=== PATIENT | female | born 1980 | race Caucasian/White ===

== ENCOUNTER → 2019-06-22 | Outpatient (REF) | payer OTHER ==
[~2019-06-22] MED LIST: AMIT50TA PO; BACT800T5 PO; CELE20TA PO; DULE200A IN; IBUP400T OR; MORP30TA2 PO; MORP30TASA PO; PERC7.5T11 PO; PERCOCET PO; TRAZ50TA2 PO; VENTAER IN; [UNRECOGNIZED DRUG - OTHER]; flexeril PO
== END ==
LOC: M SFHCLERA 11:16
PROVIDERS: ATTEND Physician Assistant
DX: R11.0 Nausea (principal)

== ENCOUNTER → 2019-08-18 | Outpatient (CLI) | payer OTHER ==
[~2019-08-18] MED LIST changes: +AJOV225I; +FOLI1TAB11 PO; +GABA800T4; +METO1TAB7; +OMEP-218; +OXYC10TA3; +PRED20TA PO; +RANI150T14; +SUMA50TA2
--- NOTE | 2019-08-18 19:13 | REP ---
Right elbow four views: There is no fracture or dislocation. Mineralization and joint spaces are normal. There are no calcifications or foreign bodies. Impression: Negative right elbow . Electronically Signed by Yonatan Mobley MD 08/18/2019 07:04 P
== END ==
LOC: M LRY 18:12
PROVIDERS: ATTEND Physician Assistant
DX: M25.521 Pain in right elbow (principal)

== ENCOUNTER 2019-08-22 14:13 | Emergency (ER) | payer OTHER ==
[~2019-08-22] VITALS: Ht 162.6 cm; Wt 44.1 kg
[2019-08-22 14:13] VITALS: BP 113/56
[~2019-08-22 14:13] MED LIST changes: -AJOV225I; -FOLI1TAB11 PO; -GABA800T4; -METO1TAB7; -OMEP-218; -OXYC10TA3; -PRED20TA PO; -RANI150T14; -SUMA50TA2
[2019-08-22] MEDS ORDERED: FOLI1TAB11 PO (14:27)
[2019-08-22] MEDS ORDERED: RANI150T14 (14:27)
[2019-08-22] MEDS ORDERED: GABA800T4 (14:27)
[2019-08-22] MEDS ORDERED: OMEP-218 (14:27)
[2019-08-22] MEDS ORDERED: OXYC10TA3 (14:27)
[2019-08-22] MEDS ORDERED: METO1TAB7 (14:27)
[2019-08-22] MEDS ORDERED: AJOV225I (14:27)
[2019-08-22] MEDS ORDERED: SUMA50TA2 (14:27)
[2019-08-22] MEDS ORDERED: PRED20TA PO (14:39)
== END 2019-08-22 14:57 | disposition home or self-care (01) ==
LOC: M ED 14:13
DX: G56.21 Lesion of ulnar nerve, right upper limb (principal); M77.01 Medial epicondylitis, right elbow; Z88.1 Allergy status to other antibiotic agents; Z88.8 Allergy status to other drugs, medicaments and biological substances; Z79.899 Other long term (current) drug therapy; K21.9 Gastro-esophageal reflux disease without esophagitis

== ENCOUNTER 2019-08-31 12:43 | Emergency (ER) | payer OTHER ==
[~2019-08-31] VITALS: Ht 165.1 cm; Wt 45.9 kg
[2019-08-31 12:43] VITALS: BP 114/63
[~2019-08-31 12:43] MED LIST changes: +AJOV225I; +FOLI1TAB11 PO; +GABA800T4; +METO1TAB7; +OMEP-218; +OXYC10TA3; +PRED20TA PO; +RANI150T14; +SUMA50TA2
== END 2019-08-31 17:04 | disposition home or self-care (01) ==
LOC: M ED 12:43
DX: T19.2XXA Foreign body in vulva and vagina, initial encounter (principal); J45.909 Unspecified asthma, uncomplicated; F17.210 Nicotine dependence, cigarettes, uncomplicated; Z88.1 Allergy status to other antibiotic agents; Z88.8 Allergy status to other drugs, medicaments and biological substances; Z79.51 Long term (current) use of inhaled steroids; Z79.899 Other long term (current) drug therapy

== ENCOUNTER 2019-09-29 10:41 | Day surgery (SDC) | payer OTHER ==
[~2019-09-29] VITALS: Ht 165.1 cm; Wt 44.9 kg
[~2019-09-29 10:41] MED LIST changes: -GABA800T4; +GABA800T4 PO; -OMEP-218; +OMEP-218 PO; -OXYC10TA3; +OXYC10TA3 PO; +PRIL20TA2 PO
[2019-09-29] MEDS ORDERED: NS 1,000 ML IV ONE (11:00)
[2019-09-29] MEDS ORDERED: PROPOFOL 200 MG/20 ML VIAL As Ordered ONE ×2 (12:39→13:05)
[2019-09-29] MEDS ORDERED: LIDOCAINE 2% INJ 100 MG/5 ML SDV (FOR ANES.) As Ordered ONE (12:39)
[2019-09-29 13:45] VITALS: BP 99/58
--- NOTE | 2019-09-29 13:56 | ROOR ---
Patient Name: Nai Hopson Procedure Date: 09/29/2019 1:02 PM Date of : 1980 Age: 39 Room: [facility] Gender: Female Note Status: Finalized Procedure: Upper GI endoscopy Indications: Dyspepsia, Abnormal UGI series Providers: Pollo Serna MD Referring MD: MONICA WEST MD Requesting Provider: Medicines: Monitored Anesthesia Care Complications: No immediate complications. Procedure: Pre-Anesthesia Assessment: - Prior to the procedure, a History and Physical was performed, and patient medications and allergies were reviewed. The patient is competent. The risks and benefits of the procedure and the sedation options and risks were discussed with the patient. All questions were answered and informed consent was obtained. Patient identification and proposed procedure were verified by the physician, the nurse and the anesthesiologist in the procedure room. Mental Status Examination: alert and oriented. Airway Examination: normal oropharyngeal airway and neck mobility. Respiratory Examination: clear to auscultation. CV Examination: normal. Prophylactic Antibiotics: The patient does not require prophylactic antibiotics. Prior Anticoagulants: The patient has taken no previous anticoagulant or antiplatelet agents. ASA Grade Assessment: II - A patient with mild systemic disease. After reviewing the risks and benefits, the patient was deemed in satisfactory condition to undergo the procedure. The anesthesia plan was to use monitored anesthesia care (MAC). Immediately prior to administration of medications, the patient was re-assessed for adequacy to receive sedatives. The heart rate, respiratory rate, oxygen saturations, blood pressure, adequacy of pulmonary ventilation, and response to care were monitored throughout the procedure. The physical status of the patient was re-assessed after the procedure. The Endoscope was introduced through the mouth, and advanced to the second part of duodenum. The upper GI endoscopy was accomplished without difficulty. The patient tolerated the procedure well. Findings: The examined esophagus was normal. Scattered mild inflammation characterized by erythema, friability and granularity was found in the gastric antrum. Biopsies were taken with a cold forceps for Helicobacter pylori testing. Verification of patient identification for the specimen was done by the physician and nurse using the patient's name, date and medical record number. Estimated blood loss was minimal. The duodenal bulb and second portion of the duodenum were normal. Biopsies for histology were taken with a cold forceps for evaluation of celiac disease. Impression: - Normal esophagus. - Gastritis. Biopsied. - Normal duodenal bulb and second portion of the duodenum. Biopsied. Recommendation: - Patient has a contact number available for emergencies. The signs and symptoms of potential delayed complications were discussed with the patient. Return to normal activities tomorrow. Written discharge instructions were provided to the patient. - Resume previous diet. - Continue present medications. - Await pathology results. - Await pathology results. - Use Prilosec (omeprazole) 40 mg PO daily for 6 weeks. - Telephone GI clinic for pathology results in 2 weeks. - Return to primary care physician. Pollo Serna MD Pollo Serna MD 09/29/2019 1:55:38 PM Electronically signed by Pollo Serna MD Number of Addenda: 0 Note Initiated On: 09/29/2019 1:02 PM Estimated Blood Loss: Estimated blood loss was minimal.
== END 2019-09-29 14:01 | disposition home or self-care (01) ==
LOC: M OPP 10:41
PROVIDERS: ATTEND Internal Medicine Gastroenterology
DX: K29.70 Gastritis, unspecified, without bleeding (principal); R93.3 Abnormal findings on diagnostic imaging of other parts of digestive tract; I10 Essential (primary) hypertension; F17.210 Nicotine dependence, cigarettes, uncomplicated; Z79.899 Other long term (current) drug therapy; Z88.8 Allergy status to other drugs, medicaments and biological substances

== ENCOUNTER → 2020-09-17 | Outpatient (CLI) | payer OTHER ==
[~2020-09-17] MED LIST changes: +GABA-1171 PO; -SUMA50TA2; +SUMA50TA2 PO
== END ==
LOC: M LABSMTC 09:00
PROVIDERS: ATTEND Anesthesiology
DX: Z01.818 Encounter for other preprocedural examination (principal); Z20.828 Contact with and (suspected) exposure to other viral communicable diseases
CPT/HCPCS: C9803; U0003

== ENCOUNTER → 2020-09-22 | Day surgery (SDC) | payer OTHER ==
[~2020-09-22] VITALS: Ht 165.1 cm; Wt 44.2 kg
[~2020-09-22] MED LIST changes: +LIDOCAINE 2% 100MG/5ML SDV (FOR ANES.) As Ordered ONE; +NS 1,000 ML IV ONE; +propofoL 200 MG/20 ML VIAL As Ordered ONE
--- NOTE | 2020-09-22 11:17 | ROOR ---
Patient Name: Nai Hopson Procedure Date: 09/22/2020 10:44 AM Date of : 1980 Age: 40 Room: [facility] Gender: Female Note Status: Finalized Procedure: Colonoscopy Indications: Hematochezia, Constipation Providers: Pollo Serna MD Referring MD: MONICA WEST MD Requesting Provider: Medicines: Monitored Anesthesia Care Complications: No immediate complications. Procedure: Pre-Anesthesia Assessment: - Prior to the procedure, a History and Physical was performed, and patient medications and allergies were reviewed. The patient is competent. The risks and benefits of the procedure and the sedation options and risks were discussed with the patient. All questions were answered and informed consent was obtained. Patient identification and proposed procedure were verified by the physician, the nurse and the anesthesiologist in the procedure room. Mental Status Examination: alert and oriented. Airway Examination: normal oropharyngeal airway and neck mobility. Respiratory Examination: clear to auscultation. CV Examination: normal. Prophylactic Antibiotics: The patient does not require prophylactic antibiotics. Prior Anticoagulants: The patient has taken no previous anticoagulant or antiplatelet agents. ASA Grade Assessment: II - A patient with mild systemic disease. After reviewing the risks and benefits, the patient was deemed in satisfactory condition to undergo the procedure. The anesthesia plan was to use monitored anesthesia care (MAC). Immediately prior to administration of medications, the patient was re-assessed for adequacy to receive sedatives. The heart rate, respiratory rate, oxygen saturations, blood pressure, adequacy of pulmonary ventilation, and response to care were monitored throughout the procedure. The physical status of the patient was re-assessed after the procedure. The Colonoscope was introduced through the anus and advanced to the terminal ileum, with identification of the appendiceal orifice and IC valve. The colonoscopy was performed without difficulty. The patient tolerated the procedure well. The quality of the bowel preparation was good. The terminal ileum, ileocecal valve, appendiceal orifice, and rectum were photographed. Scope insertion time was 3 minutes. Scope withdrawal time was 9 minutes. The total duration of the procedure was 14 minutes. Findings: The perianal and digital rectal examinations were normal. Pertinent negatives include normal sphincter tone. The terminal ileum appeared normal. Normal mucosa was found in the entire colon. Non-bleeding external and internal hemorrhoids were found during retroflexion. The hemorrhoids were medium-sized. Impression: - The examined portion of the ileum was normal. - Normal mucosa in the entire examined colon. - Non-bleeding external and internal hemorrhoids. - No specimens collected. Recommendation: - Patient has a contact number available for emergencies. The signs and symptoms of potential delayed complications were discussed with the patient. Return to normal activities tomorrow. Written discharge instructions were provided to the patient. - High fiber diet. - Continue present medications. - Use fiber, for example Citrucel, Fibercon, Konsyl or Metamucil. - Repeat colonoscopy in 10 years for screening purposes. - Return to GI clinic if persistent symptoms or new symptoms. - Return to primary care physician. Pollo Serna MD Pollo Serna MD 09/22/2020 11:17:05 AM Electronically signed by Pollo Serna MD Number of Addenda: 0 Note Initiated On: 09/22/2020 10:44 AM Estimated Blood Loss: Estimated blood loss was minimal.
[2020-09-22 11:45] VITALS: BP 98/61
== END | disposition home or self-care (01) ==
LOC: M OPP 09:49
PROVIDERS: ATTEND Internal Medicine Gastroenterology
DX: K64.8 Other hemorrhoids (principal); K92.1 Melena; K59.00 Constipation, unspecified; K21.9 Gastro-esophageal reflux disease without esophagitis; J44.9 Chronic obstructive pulmonary disease, unspecified; Z79.891 Long term (current) use of opiate analgesic; Z79.899 Other long term (current) drug therapy; Z88.5 Allergy status to narcotic agent; Z88.8 Allergy status to other drugs, medicaments and biological substances

== ENCOUNTER 2020-09-25 23:06 | Emergency (ER) | payer OTHER ==
[~2020-09-25] VITALS: Ht 165.1 cm; Wt 44.1 kg
[~2020-09-25 23:06] MED LIST changes: -LIDOCAINE 2% 100MG/5ML SDV (FOR ANES.) As Ordered ONE; -NS 1,000 ML IV ONE; -propofoL 200 MG/20 ML VIAL As Ordered ONE
[2020-09-26 00:06] LABS: BASO # 0.1 10^3/uL (0.0-0.2); BASO % 0.9 % (0.0-1.0); EOS # 0.1 10^3/uL (0.0-0.5); EOS % 1.5 % (0.0-3.0); HEMATOCRIT 35.9 % (36.0-47.0); HEMOGLOBIN 11.7 g/dl (12.0-15.5); LYMPH # 2.4 10^3/uL (1.5-5.0); MEAN CORPUSCULAR HEMOGLOBIN 30.1 pg (27.0-33.0); MEAN CORPUSCULAR HGB CONC 32.6 g/dl (32.0-36.5); MEAN CORPUSCULAR VOLUME 92.3 fl (80.0-96.0); MONO # 0.4 10^3/uL (0.0-0.8); MONO % 6.5 % (0.0-5.0); NEUTROPHILS # 2.5 10^3/uL (1.5-8.5); NEUTROPHILS % 45.5 % (36.0-66.0); PLATELET COUNT, AUTOMATED 232 10^3/uL (150-450); RED BLOOD COUNT 3.89 10^6/uL (4.00-5.40); WHITE BLOOD COUNT 5.4 10^3/uL (4.0-10.0)
[2020-09-26 00:19] LABS: BLOOD UREA NITROGEN 18 MG/DL (7-18); CALCIUM LEVEL 9.4 MG/DL (8.5-10.1); CARBON DIOXIDE LEVEL 28 MEQ/L (21-32); CHLORIDE LEVEL 106 MEQ/L (98-107); CK-MB VALUE MASS < 1.0 NG/ML (<3.6); CPK CREATINE PHOSPHOKINASE 67 U/L (26-192); CREATININE FOR GFR 0.67 MG/DL (0.55-1.30); GLOMERULAR FILTRATION RATE > 60.0 (>58); GLUCOSE, FASTING 79 MG/DL (70-100); MB/CK RELATIVE INDEX 1.49 (< OR =4); POTASSIUM SERUM 3.7 MEQ/L (3.5-5.1); SODIUM LEVEL 140 MEQ/L (136-145); THYROID STIMULATING HORMONE 0.894 uIU/ML (0.358-3.740); TROPONIN I < 0.02 NG/ML (< 0.10)
--- NOTE | 2020-09-26 00:27 | REPVR ---
PROCEDURE INFORMATION: Exam: XR Chest, 1 View Exam date and time: 09/25/2020 11:43 PM Age: 40 years old Clinical indication: Chest pain; Type not specified TECHNIQUE: Imaging protocol: XR of the chest Views: 1 view. COMPARISON: CR Chest, 2 view PA, Lat 12/06/2014 3:02 PM FINDINGS: Tubes, catheters and devices: Spinal stimulator over the midthoracic spine. Lungs: Calcified granuloma in the right upper lobe. No acute infiltrate. Pleural space: Unremarkable. No pleural effusion. No pneumothorax. Heart/Mediastinum: Unremarkable. No cardiomegaly. Bones/joints: Unremarkable. IMPRESSION: No acute infiltrate. Electronically signed by: Zeyad Nam On 09/26/2020 00:26:47 AM
[2020-09-26 00:45] VITALS: BP 104/68
--- NOTE | 2020-09-26 09:53 | ECGEPIP ---
[facility] - ED Test Date: 2020-09-25 Pat Name: DAOLFO SEALS Department: Room: - Gender: Female [employer]: sorin : 1980 Requested By: CARRI Christianson Order Number: [id number] Reading MD: Waqar Pineda Measurements Intervals [place] Rate: 71 P: 55 CT: 189 QRS: 72 QRSD: 82 T: 59 QT: 374 QTc: 409 Interpretive Statements SINUS RHYTHM Electronically Signed on 09-26-2020 9:53:23 EST by Waqar Pineda
== END 2020-09-26 00:47 | disposition home or self-care (01) ==
LOC: M ED 23:06
DX: R07.9 Chest pain, unspecified (principal); D64.9 Anemia, unspecified; F17.200 Nicotine dependence, unspecified, uncomplicated; Z79.891 Long term (current) use of opiate analgesic; Z79.899 Other long term (current) drug therapy; Z88.6 Allergy status to analgesic agent; Z88.8 Allergy status to other drugs, medicaments and biological substances; Z96.82 Presence of neurostimulator

== ENCOUNTER 2021-02-18 15:28 | Emergency (ER) | payer OTHER ==
[~2021-02-18] VITALS: Ht 165.1 cm; Wt 45.5 kg
[~2021-02-18 15:28] MED LIST changes: +GABA-845 PO
[2021-02-18] MEDS ORDERED: METO1TAB33 (15:35)
[2021-02-18] MEDS ORDERED: ONDA4TAB6 (15:35)
[2021-02-18] MEDS ORDERED: SUMA100T2 (15:35)
[2021-02-18] MEDS ORDERED: ONDANSETRON 4MG/2ML VIAL IV ONE (15:50)
[2021-02-18] MEDS ORDERED: NS 1,000 ML IV ONE (15:50)
[2021-02-18 16:04] LABS: BASO % 0.5 % (0.0-1.0); EOS # 0.1 10^3/uL (0.0-0.5); EOS % 1.9 % (0.0-3.0); HEMATOCRIT 36.9 % (36.0-47.0); HEMOGLOBIN 11.6 g/dl (12.0-15.5); LYMPH # 1.5 10^3/uL (1.5-5.0); LYMPH % 41.6 % (24.0-44.0); MEAN CORPUSCULAR HEMOGLOBIN 28.8 pg (27.0-33.0); MEAN CORPUSCULAR HGB CONC 31.4 g/dl (32.0-36.5); MEAN CORPUSCULAR VOLUME 91.6 fl (80.0-96.0); MONO # 0.2 10^3/uL (0.0-0.8); MONO % 6.3 % (2.0-8.0); NEUTROPHILS # 1.8 10^3/uL (1.5-8.5); NEUTROPHILS % 49.7 % (36.0-66.0); PLATELET COUNT, AUTOMATED 177 10^3/uL (150-450); RED BLOOD COUNT 4.03 10^6/uL (4.00-5.40); WHITE BLOOD COUNT 3.7 10^3/uL (4.0-10.0)
--- NOTE | 2021-02-18 16:26 | REP ---
INDICATION: vomtiing. COMPARISON: None. TECHNIQUE: Multiple sonographic images of the abdominal right upper quadrant. FINDINGS: There is no cholelithiasis, gallbladder wall thickening or pericholecystic fluid. There is no intrahepatic or extrahepatic biliary duct dilatation. The common biliary duct measures 4.5 mm in diameter. The hepatic parenchyma is homogeneous. A small 1.6 cm hepatic cyst is incidentally noted. The visualized areas of the pancreas are unremarkable. The right kidney is normal size measuring 10 x 1 x 4.5 x 3.0 cm. There is no right renal hydronephrosis, calculus, solid mass or cystic mass. There is no right upper quadrant abdominal free fluid. IMPRESSION: Small hepatic cyst. Otherwise, negative abdominal right upper quadrant ultrasound. <Electronically signed by Yonatan Mobley > 02/18/21 [id number]
[2021-02-18 16:36] LABS: ALBUMIN 4.5 GM/DL (3.2-5.2); ALT/SGPT 17 U/L (12-78); BILIRUBIN,DIRECT 0.1 MG/DL (0.0-0.2); BILIRUBIN,TOTAL 0.4 MG/DL (0.2-1.0); BLOOD UREA NITROGEN 17 MG/DL (7-18); CALCIUM LEVEL 9.2 MG/DL (8.5-10.1); CARBON DIOXIDE LEVEL 31 MEQ/L (21-32); CHLORIDE LEVEL 106 MEQ/L (98-107); CREATININE FOR GFR 0.71 MG/DL (0.55-1.30); GLOMERULAR FILTRATION RATE > 60.0 (>58); GLUCOSE, FASTING 85 MG/DL (70-100); HCG, SERUM QUALITATIVE NEGATIVE (NEGATIVE); LIPASE 74 U/L (73-393); POTASSIUM SERUM 4.1 MEQ/L (3.5-5.1); SODIUM LEVEL 140 MEQ/L (136-145); TOTAL PROTEIN 7.4 GM/DL (6.4-8.2)
[2021-02-18 17:36] VITALS: BP 105/68
== END 2021-02-18 17:56 | disposition home or self-care (01) ==
LOC: M ED 15:28
DX: R11.10 Vomiting, unspecified (principal); K76.89 Other specified diseases of liver; I10 Essential (primary) hypertension; J44.9 Chronic obstructive pulmonary disease, unspecified; M54.5 Low back pain; F17.200 Nicotine dependence, unspecified, uncomplicated; Z88.8 Allergy status to other drugs, medicaments and biological substances; Z79.899 Other long term (current) drug therapy
CPT/HCPCS: 76705; 80048; 80076; 83690; 84703; 85025; 96361; 96374; 99284; J2405

== ENCOUNTER 2021-05-27 10:50 | Emergency (ER) | payer OTHER ==
[~2021-05-27] VITALS: Ht 165.1 cm; Wt 47.3 kg
[~2021-05-27 10:50] MED LIST changes: +GABA-283 PO; -GABA-845 PO; +METO1TAB33; +OMEP-173 PO; -OMEP-218 PO; +ONDA4TAB6; +SUMA100T2
[2021-05-27] MEDS ORDERED: BENZOCAINE 20% GEL 9GM TUBE (ANBESOL MAX STRENGTH) TOP ONE (11:45)
[2021-05-27] MEDS ORDERED: KETOROLAC 30 MG/ML 1ML VIAL IM ONE (11:45)
[2021-05-27] MEDS ORDERED: CLIN150C17 PO (11:47)
[2021-05-27] MEDS ORDERED: IBUP80TA PO (11:47)
[2021-05-27 12:22] VITALS: BP 119/60
== END 2021-05-27 12:27 | disposition home or self-care (01) ==
LOC: M ED 10:50
DX: K02.9 Dental caries, unspecified (principal); K08.89 Other specified disorders of teeth and supporting structures; F17.200 Nicotine dependence, unspecified, uncomplicated; J02.9 Acute pharyngitis, unspecified; J44.9 Chronic obstructive pulmonary disease, unspecified; Z88.1 Allergy status to other antibiotic agents; Z88.6 Allergy status to analgesic agent; Z88.8 Allergy status to other drugs, medicaments and biological substances; Z96.82 Presence of neurostimulator
CPT/HCPCS: 87880; 96372; 99283; J1885

== ENCOUNTER 2021-09-03 14:43 | Emergency (ER) | payer OTHER ==
[~2021-09-03] VITALS: Ht 165.1 cm; Wt 46.8 kg
[~2021-09-03 14:43] MED LIST changes: +CLIN150C17 PO; +IBUP80TA PO; -OMEP-173 PO; +OMEP-218 PO
--- OUTSIDE RECORDS SUMMARY | 2021-09-03 14:52 | CCD ---
Author Author [facility] Organization [facility] Address [address] [place] [address] Phone Care Team Providers Care Forensic Pathologist Name Role Phone Rachid WILLS, Monica Vieira Unavailable [phone] Joe WARNER, Donna Lindquist Unavailable [phone] Reason for Referral No Reason for Referral Recorded Problems Includes: Active, inactive, and resolved Problems All Visits Onset Date - Time Resolved Date - Time Provider Co ndition Status Psychogenic Formication 11/28/2020 - 12:00AM Donna Diaz NP Active Note: Unchanged Atypical Chest Pain 10/11/2020 - 12:00AM Donna Del Cid NP Active Note: Unchanged Acquired Deformity - Foot Drop 04/03/2017 - 12:00AM Flor Rashid MD Active Note: Unchanged Chronic Pain Syndrome 04/03/2017 - 12:00AM Monica cline MD Active Note: Unchanged Classic Migraine (With Aura) Without Intractable Migraine - 12:00AM Monica Rashid MD Active Note: Unchanged Chronic Obstructive Pulmonary Disease 04/03/2017 - 12:00AM Monica Rashid MD Active Note: Unchanged Lower Back Pain 04/03/2017 - 12:00AM Monica Kelsey Active Note: Unchanged Numbness of the Limbs 04/03/2017 - 12:00AM Monica cline MD Active Note: Unchanged - L FOOT TO ANKLE W/O FEELING SINCE L FIBULA SURGERYFEELING OF BUG CRAWLING RADIATING TO WHOLE BODYLEG PAIN 3/10 W/ MEDS, 10/10 W/O MEDS Tingling of the Left Leg 04/03/2017 - 12:00AM Monica Rashid MD Active Note: Unchanged - AND GOES T O SHOULDER Plan of Treatment Pending Tests Order Diagnosis Results Due Ordering Provi danita *Labs (Manual) CBC Other abnormality of red blood cells Monica Rashid MD *Labs (Manual) *RANDOM Other abnormality of red blood cells Monica Rashid MD Ultrasound Pelvic Ultrasound w/out Endovaginal Prob e Other specified abnormal uterine and vaginal bleeding 05/06/17 Monica Rashid MD Ultrasound Pelvic Ultrasound w/Endovaginal Probe Ot her specified abnormal uterine and vaginal bleeding 05/06/17 Monica Rashid MD *Labs (Manual) FERRITIN Other fatigue 05/06/17 Monica turner MD *Labs (Manual) FE Other fatigue 05/06/17 Monica turner MD *Labs (Manual) RETIC Other fatigue 05/06/17 Monica turner MD *Labs (Manual) STOOL OCCULT X3 Other fatigue 05/06/17 Monica Rashid MD *Labs (Manual) TIBC Other fatigue 05/06/17 Monica turner MD *Labs (Manual) VIT B12 Other fatigue 05/06/17 Monica turner MD *Labs (Manual) FOLATE Other fatigue 05/06/17 Monica turner MD *Labs (Manual) UA W/MICRO Gestational diabetes mellitus in , diet controlled 05/06/17 Monica Rashid MD X-RAY Barium Swallow w/ UGI X-Ray Nausea 05/21/17 Monica Rashid MD *Labs (Manual) H PYLORI TITER Nausea 05/21/[address] Scan Abdomen CT Scan With Contrast Unspecified abdominal pa in 10/10/17 Kellie A Danita [facility] CT Scan Abdomen CT Without Contrast Unspecified abdominal pain 10/10/17 Kellie A Danita [facility] CT Scan Pelvis CT Scan With Contrast Unspecified abdominal agus n 10/10/17 Kellie A Danita [facility] CT Scan Pelvis CT Scan Without Contrast Unspecified abdominal pain 10/10/17 Kellie A Danita G[employer]LEY [employer]Y *Labs (Manual) UA/UCS Unspecified abdominal pain 10/10/17 Kellie A Danita G[employer]LEY BOY *Labs (Manual) *STAT Unspecified abdominal pain 10/10/17 Kellie A Danita G[employer]LEY [employer]Y *Labs (Manual) CBC Unspecified abdominal pain 10/10/17 Kellie A Danita G[employer]LEY [employer]Y *Labs (Manual) CMP Unspecified abdominal pain 10/10/17 Kellie A Danita G[employer]LEY [employer]Y *Labs (Manual) CBC Other fatigue 01/16/18 Monica turner MD *Labs (Manual) CMP Other fatigue 01/16/18 Monica turner MD *Labs (Manual) TSH Other fatigue 01/16/18 Monica turner MD *Labs (Manual) LIPID Other fatigue 01/16/18 Monica turner MD X-RAY - MAMMOGRAPHY Mammography (bilateral) ultrasound if in dicated Diffuse cystic mastopathy of left breast 03/17/18 Monica Rashid MD *Labs (Manual) CBC Underweight 05/14/18 Monica orr MD *Labs (Manual) CMP Underweight 05/14/18 Monica orr MD *Labs (Manual) TSH Underweight 05/14/18 Monica orr MD *Labs (Manual) FREE T3 Underweight 05/14/18 Monica orr MD *Labs (Manual) FREE T4 Underweight 05/14/18 Monica orr MD *Labs (Manual) LIPID Underweight 05/14/18 Monica orr MD *Labs (Manual) VIT D 25-OH Underweight 05/14/18 Monica orr MD *Labs (Manual) BHCG/QUANT IF + Abnormal uterine and vaginal bleeding, unspecified 11/05/18 Monica Rashid MD Ultrasound Pelvic Ultrasound w/Endovaginal Probe Ab normal uterine and vaginal bleeding, unspecified 11/05/18 Monica Rashid MD Ultrasound Pelvic Ultrasound w/out Endovaginal Prob e Abnormal uterine and vaginal bleeding, unspecified 11/05/18 Monica Rashid MD *Labs (Manual) CBC Abnormal uterine and vaginal bleeding, unspecified 11/05/18 Monica Rashid MD *Labs (Manual) PTT Abnormal uterine and vaginal bleeding, unspecified 11/05/18 Monica Rashid MD *Labs (Manual) PT/INR Abnormal uterine and vaginal ble eding, unspecified 11/05/18 Monica Rashid MD *Labs (Manual) STOOL (C-diff) Diarrhea, unspecified 11/05/18 Flor Rashid MD *Labs (Manual) STOOL (WBC) Diarrhea, unspecified 11/05/18 Leopoldo Rashid MD *Labs (Manual) STOOL O&P Diarrhea, unspecified 11/05/18 Leopoldo Rashid MD *Labs (Manual) CMP Underweight 12/11/18 Monica orr MD *Labs (Manual) LIPID Underweight 12/11/18 Monica orr MD *Labs (Manual) FREE T3 Underweight 12/11/18 Monica orr MD *Labs (Manual) FREE T4 Underweight 12/11/18 Monica orr MD *Labs (Manual) TSH Underweight 12/11/18 Monica orr MD Ultrasound Gall Bladder Ultrasound Nausea 12/11/18 Leopoldo Rashid MD X-RAY Upper GI with barium swallow Nausea 12/11/18 Monica Rashid MD *Labs (Manual) AMYLASE Nausea 12/11/18 Monica orr MD *Labs (Manual) LIPASE Nausea 12/11/18 Monica orr MD *Labs (Manual) DRUG SCREEN (URINE) Other chronic pain 04/02/19 Monica Rashid MD *Labs (Manual) DRUG SCREEN (BLOOD) Other chronic pain 04/28/19 Moniac Rashid MD *Labs (Manual) DRUG SCREEN (URINE) Other chronic pain 04/28/19 Monica Rashid MD *Labs (Manual) CBC Other specified abnormal uterine and vaginal bleeding 06/09/19 Monica Rashid MD *Labs (Manual) BHCG/QUANT IF + Other specified abno rmal uterine and vaginal bleeding 06/09/19 Monica Rashid MD *Labs (Manual) CMP Other specified abnormal uterine and vaginal bleeding 06/09/19 Monica Rashid MD *Labs (Manual) LH/FSH Other specified abnormal uterine and vaginal bleeding 06/09/19 Monica Rashid MD *Labs (Manual) PROLACTIN Other specified abnormal uterine and vaginal bleeding 06/09/19 Monica Rashid MD *Labs (Manual) PTT Other specified abnormal uterine and vaginal bleeding 06/09/19 Monica Rashid MD *Labs (Manual) PT/INR Other specified abnormal uterine and vaginal bleeding 06/09/19 Monica Rashid MD *Labs (Manual) TSH Other specified abnormal uterine and vaginal bleeding 06/09/19 Monica Rashid MD Ultrasound Pelvic Ultrasound w/out Endovaginal Prob e Other specified abnormal uterine and vaginal bleeding 06/09/19 Monica Rashid MD Ultrasound Pelvic Ultrasound w/Endovaginal Probe Ot her specified abnormal uterine and vaginal bleeding 06/09/19 Monica Rashid MD X-RAY Upper GI X-Ray Nausea 06/24/19 Monica orr MD *Labs (Manual) H PYLORI TITER Nausea 06/24/19 Monica cline MD *Labs (Manual) *RANDOM Acute gastritis without bleeding Kellie A Danita GALLEY BOY *Labs (Manual) CBC Acute gastritis without bleeding Kellie A Danita [place] [employer] *Labs (Manual) CMP Acute gastritis without bleeding Kellie A Danita [employer] [employer] *Labs (Manual) *RANDOM Hypokalemia 07/09/19 Kellie A Danita F [employer]CISION FARMING COORDINATOR *Labs (Manual) CMP Hypokalemia 07/09/19 Kellie A Danita F PRECISION FARMING COORDINATOR *Labs (Manual) BMP Hypokalemia 08/06/19 Monica orr MD *Labs (Manual) SERUM ALDOSTERONE Hypokalemia 08/06/19 Monica Rashid MD *Labs (Manual) SERUM CORTISOL Hypokalemia 08/06/19 Monica cline MD X-RAY Upper GI with barium swallow (96785) Gas tritis, unspecified, without bleeding 08/06/19 Monica Rashid MD *Labs (Manual) MEASLES TITER HCC-Chronic obstruct kate pulmonary disease, unspecified 12/21/19 Melvin Noriega MD *Labs (Manual) BMP Hypokalemia 01/19/20 Monica orr MD *Labs (Manual) SALIVA DRUG TEST Other chronic pain 01/19/20 Quang Rashid MD *Labs (Manual) *RANDOM Encounter for antibody response examina tion 01/19/20 Monica Rashid MD *Labs (Manual) MMR TITER Encounter for antibody response examina tion 01/19/20 Monica Rashid MD *Labs (Manual) Chlamydia Acute vaginitis 04/18/20 Monica Rashid MD *Labs (Manual) GC Acute vaginitis 04/18/20 Monica Rashid MD *Labs (Manual) VAGINAL CULTURE Acute vaginitis 04/18/20 Monica Rashid MD *Labs (Manual) TESTOSTERONE Hirsutism 06/13/20 Monica orr MD *Labs (Manual) DRUG SCREEN (URINE) Chronic pain syndrome 07/14/20 Monica Rashid MD *Labs (Manual) *FASTING Chronic pain syndrome 09/15/20 aZc ceballos Ameena Diaz [employer]CISION FARMING COORDINATOR *Labs (Manual) CBC Chronic pain syndrome 09/15/20 Zac ceballos Ameena Diaz PRECISION FARMING COORDINATOR *Labs (Manual) CMP Chronic pain syndrome 09/15/20 Zac lin Ameena Diaz PRECISION FARMING COORDINATOR *Labs (Manual) LIPID Chronic pain syndrome 09/15/20 Zac lin Ameena Diaz PRECISION FARMING COORDINATOR X-RAY Mammography- Ultrasound If Indicated Enc ntr screen mammogram for malignant neoplasm of breast 10/14/20 Donna Ameena Diaz [employer]CISION FARMING COORDINATOR *Labs (Manual) D-dimer Chest pain, unspecified 11/11/20 Sim alfredolin Diaz [employer]CISION FARMING COORDINATOR *Labs (Manual) proBNP Chest pain, unspecified 11/11/20 Sim Diaz [employer]CISION FARMING COORDINATOR *Labs (Manual) TROPONIN Chest pain, unspecified 11/11/20 Sim Diaz PRECISION FARMING COORDINATOR *Labs (Manual) *RANDOM Chronic pain syndrome 04/10/21 Leopoldo Rashid MD *Labs (Manual) UA/UCS Chronic pain syndrome 04/10/21 Leopoldo Rashid MD *Labs (Manual) *FASTING Encounter for screening for lipoid diso rders 08/02/21 [place] Ameena Diaz PRECISION FARMING COORDINATOR *Labs (Manual) LIPID Encounter for screening for lipoid diso rders 08/02/21 [place] Ameena Diaz PRECISION FARMING COORDINATOR *Labs (Manual) CBC Encounter for screening for nutritional disorder 08/02/21 [place] Ameena Diaz PRECISION FARMING COORDINATOR *Labs (Manual) CMP Encounter for screening for nutritional disorder 08/02/21 Donna Diaz PRECISION FARMING COORDINATOR Care Programs [facility] Future Appointments Date Time Location Provider ANNUAL PHYSICAL EXAM 10/03/2021 1:00PM [facility] Ameena Diaz PRECISION FARMING COORDINATOR Findings Encounter Date PDMP CONSULTED -- PERCOCET REFILLED F FUP 4W MED CHK -- WILL FILL MEDS ENOUGH FOR 6M ON NONCONTROLLEDS STANDARD OV with Donna Bargerjoo Diaz PRECISION FARMING COORDINATOR 08/18/2021 PDMP CONSULTED -- PERCOCET REFILLED L AST TOOK PERCOCET 07/19 CBC, CMP, LIPIDS FFUP 4W APE W/O PAP STANDARD OV with Donna Diaz PRECISION FARMING COORDINATOR 07/19/2021 PDMP CONSULTED -- PERCOCET REFILLED FFUP 4W MED CHK STANDARD OV with Donna Diaz PRECISION FARMING COORDINATOR 06/21/2021 PDMP CONSULTED -- PERCOCET REFILLED FFUP 4W MED CHK STANDARD OV with Donna Diaz PRECISION FARMING COORDINATOR 05/24/2021 Ordered follow-up visit 1 MO WRITE-IN (SAME DAY) with Danielle Rashid MD 03/27/2021 Ordered follow-up visit 1 MO WRITE-IN (SAME DAY) with Danielle Rashid MD 02/21/2021 PDMP CONSULTED -- PERCOCET REFILLED FFUP 4W MED CHK EXTENDED VISIT with Donna iDaz PRECISION FARMING COORDINATOR 01/24/2021 PDMP CONSULTED -- PERCOCET REFILLED FFUP 4W MED CHK STANDARD OV with Donna Diaz PRECISION FARMING COORDINATOR 12/29/2020 NEUROLOGY REFERRAL -- PT WONDERING IF SHE HAS ?ARACHNOIDITIS PDMP CONSULTED -- PERCOCET REFILLED FFUP 4W MED CHK EXTENDED VISIT with Donna Bran laura PRECISION FARMING COORDINATOR 11/28/2020 PDMP CONSULTED -- PERCOCET REFILLED FFUP 4W MED CHK STANDARD OV with Donna Diaz PRECISION FARMING COORDINATOR 10/28/2020 PDMP CONSULTED -- PERCOCETREFILLED FFUP 4W MED CHK ANNUAL PHYSICAL EXAM with Donna Diaz ALANA 09/30/2020 CBC, CMP, LIPIDS FFUP IN 4W FOR APE, LAB REVIEW, ME D CHECK EXTENDED VISIT with Donna Diaz PRECISION FARMING COORDINATOR 09/01/2020 PDMP CONUSLTED -- PERCOCET REFILLED FFUP IN 4W MED CHECK STANDARD OV with Donna Lindquist [place] PRECISION FARMING COORDINATOR 08/02/2020 Ordered follow-up visit STANDARD OV with Monica Rashid MD 06/30/2020 Ordered follow-up visit STANDARD OV with Monica Rashid MD 05/02/2020 Ordered return to the clinic if condition worsens or n ew symptoms arise STANDARD OV with Monica Rashid MD 05/02/2020 Ordered follow-up visit E-VISIT E/M with Monica Rashid MD 03/02/2020 Ordered follow-up visit STANDARD OV with Monica Rashid MD 02/02/2020 Ordered follow-up visit 1 mo STANDARD OV with Monica orr MD 08/21/2019 Ordered return to the clinic if condition worsens or n ew symptoms arise STANDARD OV with Monica Rashid MD 08/21/2019 Ordered follow-up visit 1 mo STANDARD OV with Monica orr MD 07/23/2019 Ordered urinalysis STANDARD OV with Monica Rashid MD 03/2019 Ordered follow-up visit RTC 1 MONTH STANDARD OV with Kellie Pabon 06/24/2019 Ordered follow-up visit STANDARD OV with Monica Rashid MD 05/26/2019 Ordered follow-up visit 1 MO STANDARD OV with Monica orr MD 04/14/2019 Ordered follow-up visit STANDARD OV with Monica Rashid MD 02/10/2019 Ordered return to the clinic if condition worsens or n ew symptoms arise STANDARD OV with Monica Rashid MD 02/10/2019 Ordered follow-up visit ANNUAL PHYSICAL EXAM with Monica Rashid MD 12/15/2018 Ordered return to the clinic if condition worsens or n ew symptoms arise ANNUAL PHYSICAL EXAM with Monica Rashid MD 12/15/2018 Ordered follow-up visit EXTENDED VISIT with Monica Rashid MD 11/27/2018 Ordered return to the clinic if condition worsens or n ew symptoms arise EXTENDED VISIT with Monica Rashid MD 11/27/2018 Ordered an X-ray STANDARD OV with Monica Rashid MD 10/18 Ordered follow-up visit STANDARD OV with Monica Rashid MD 10/30/2018 Ordered follow-up visit 2 wks EXTENDED VISIT with Monica Rashid MD 07/02/2018 Ordered follow-up visit STANDARD OV with Monica Rashid MD 05/29/2018 Ordered return to the clinic if condition worsens or n ew symptoms arise STANDARD OV with Monica Rashid MD 05/29/2018 Ordered follow-up visit 1 MO STANDARD OV with Monica orr MD 04/30/2018 Requested request consultation by specialist TO RANULFO DUMAS OV with Monica Rashid MD 04/30/2018 Ordered follow-up visit 1 mo STANDARD OV with Monica orr MD 03/03/2018 Ordered mammogram STANDARD OV with Monica Rashid MD 02/16 Ordered return to the clinic if condition worsens or n ew symptoms arise STANDARD OV with Monica Rashid MD 03/03/2018 Ordered follow-up visit RTC 3 MONTHS STANDARD OV with Kellie Pabon 02/03/2018 Ordered CBC STANDARD OV with Monica Rashid MD 12/19 Ordered follow-up visit STANDARD OV with Monica Rashid MD 01/02/2018 Ordered lipid test panel STANDARD OV with Monica Rashid MD 01/02/2018 Ordered serum TSH level, 3rd generation STANDARD OV with Quang Rashid MD 01/02/2018 Ordered follow-up visit STANDARD OV with Monica Rashid MD 12/02/2017 Ordered return to the clinic if condition worsens or n ew symptoms arise STANDARD OV with Monica Rashid MD 12/02/2017 Ordered follow-up visit rtc 1 month STANDARD OV with Kellie Pabon 10/07/2017 Ordered follow-up visit 1 mo STANDARD OV with Monica orr MD 09/05/2017 Ordered follow-up visit 1 mo STANDARD OV with Monica orr MD 07/11/2017 Requested request consultation by specialist podiatry STANDARD OV with Monica Rashid MD 07/11/2017 Ordered follow-up visit 1 MO STANDARD OV with Monica orr MD 06/12/2017 Ordered follow-up visit KEEP SCHEDULED APPT WITH DR. RASHID WRITE-IN (SAME DAY) with Kellie Pabon 04/08/2017 Ordered follow-up visit NEW PATIENT EVALUATION with Monica Rashid MD 04/03/2017 Assessments Includes: Assessments for all patient encounters Findings Encounter Date Chronic pain STANDARD OV with Donna Lindquist [place] N P 08/18/2021 Migraine headache STANDARD OV with Donna Lindquist Joe N P 08/18/2021 Chronic pain STANDARD OV with Donna Lindquist [place] N P 07/19/2021 GERD STANDARD OV with Donna Lindquist [place] N P 07/19/2021 Chronic pain STANDARD OV with Donna Lindquist Joe N P 06/21/2021 Nausea STANDARD OV with Donna Lindquist [place] N P 06/21/2021 Chronic pain STANDARD OV with Donna Talamantes P 05/24/2021 Migraine headache STANDARD OV with Donna Talamantes P 05/24/2021 Chronic pain STANDARD OV with Monica Rashid MD 07/2021 Foot drop STANDARD OV with Monica Rashid MD 07/2021 Nausea STANDARD OV with Monica Rashid MD 07/2021 Chronic pain WRITE-IN (SAME DAY) with Monica Rashid MD 03/27/2021 Classic migraine (with aura) with intractable migraine with status migrainosus WRITE-IN (SAME DAY) with Monica Rashid MD 03/27/2021 Constipation "IT'S BEEN LIKE THIS SINCE I WAS A KID". TAKES LAXATIVE AFTER 2 WKS W/O BM. DECLINED SENNA WRITE-IN (SAME DAY) with Monica Rashid MD 03/27/2021 Nicotine dependence uncomplicated WRITE-IN (SAME DAY) with Dominique Rashid MD 03/27/2021 Chronic pain 02/25 TODAY WRITE-IN (SAME DAY) with Monica Rashid MD 02/21/2021 Common migraine without aura without int ractable migraine LAST MIGRAINE 2 MOS AGO WRITE-IN (SAME DAY) with Monica Rashid MD 02/21/2021 Nausea OCCURS QD. GI W/U EGD, COLONOSCOPY 2019 NORMAL WRITE-IN (SAME DAY) with Monica Rashid MD 02/21/2021 Normochromic, normocytic anemia WRITE-IN (SAME DAY) with Quang Rashid MD 02/21/2021 Vaping related disorder WRITE-IN (SAME DAY) with Monica cline MD 02/21/2021 Chronic pain EXTENDED VISIT with Donna sanchez NP 01/24/2021 Chronic pain STANDARD OV with Donna Talamantes P 12/29/2020 Migraine headache STANDARD OV with Donna Talamantes P 12/29/2020 Chronic pain EXTENDED VISIT with Donna sanchez PRECISION FARMING COORDINATOR 11/28/2020 Psychogenic formication EXTENDED VISIT with Donna valles NP 11/28/2020 Atypical chest pain STANDARD OV with Donna Talamantes P 10/28/2020 Chronic pain STANDARD OV with Donna Diaz N P 10/28/2020 Migraine headache STANDARD OV with Donna Diaz N P 10/28/2020 Atypical chest pain ANNUAL PHYSICAL EXAM with Donna Diaz PRECISION FARMING COORDINATOR 09/30/2020 Routine adult history and physical (18-64 yrs) without abnormal findings ANNUAL PHYSICAL EXAM with Donna Diaz PRECISION FARMING COORDINATOR 09/30/2020 Chronic pain EXTENDED VISIT with Donna Bran s PRECISION FARMING COORDINATOR 09/01/2020 Chronic pain STANDARD OV with Donna Diaz N P 08/02/2020 Chronic pain STANDARD OV with Monica Rashid MD 06/18 Nicotine dependence continuous STANDARD OV with Monica turner MD 06/30/2020 Assessment of hirsutism on chin STANDARD OV with Monica cline MD 05/30/2020 Common migraine without aura without int ractable migraine 3 COMON MENSAH ,NOT MIGRAINE THIS MONTH X 3-4 HRS STANDARD OV with Monica Rashid MD 05/30/2020 Hematochezia STANDARD OV with Monica Rashid MD 05/18 Left medial epicondylitis STANDARD OV with Monica Potter D 05/30/2020 Noninfective leukorrhea STANDARD OV with Monica Rashid MD 05/30/2020 Chronic pain STANDARD OV with Monica Rashid MD 04/18 Common migraine without aura without int ractable migraine 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 AJOVY STANDARD OV with Monica Rashid MD 05/02/2020 Fatigue STANDARD OV with Monica Rashid MD 04/18 Vaginitis EXTENDED VISIT with Monica Rashid MD 0 04/04/2020 Chronic pain E-VISIT E/M with Monica Rashid MD 03/18 Common migraine without aura without intractable migra ine E-VISIT E/M with Monica Rashid MD 04/01/2020 Vaginitis E-VISIT E/M with Monica Rashid MD 03/18 Nicotine dependence continuous *TOBACCO CESSATION* with Leopoldo Rashid MD 03/02/2020 Common migraine without aura without intractable migra ine E-VISIT E/M with Monica Rashid MD 03/02/2020 Acquired deformity of foot STANDARD OV with Monica Rashid MD 02/02/2020 Chronic pain STANDARD OV with Monica Rashid MD 01/16 Chronic pain STANDARD OV with Monica Rashid MD 12/19 Common cold STANDARD OV with Monica Rashid MD 12/19 Hypokalemia STANDARD OV with Monica Rashid MD 12/19 Nicotine related disorders STANDARD OV with Monica Rashid MD 01/05/2020 Assessment of lower back pain EXTENDED VISIT with Melvin Noriega MD 12/07/2019 Chronic obstructive pulmonary disease EXTENDED VISIT with Perlita Noriega MD 12/07/2019 Chronic pain syndrome EXTENDED VISIT with Melvin Noriega MD 12/07/2019 Chronic pain STANDARD OV with Monica Rashid MD 12/2018 Helicobacter pylori (H. pylori) infection BEING TREAT ED BY GI STANDARD OV with Monica Rashid MD 10/19/2019 Nausea STANDARD OV with Monica Rashid MD 12/2018 Nicotine related disorders STANDARD OV with Monica Rashid MD 10/19/2019 Underweight STANDARD OV with Monica Rashid MD 12/2018 Chronic obstructive pulmonary disease STANDARD OV with Danielle Rashid MD 08/21/2019 Chronic pain STANDARD OV with Monica Rashid MD 02/2019 Classic migraine (with aura) without int ractable migraine last mensah 4 days. ajovy has helped. had >20 mensah days a mo , with med 1/week STANDARD OV with Monica Rashid MD 08/21/2019 Left-sided sciatica STANDARD OV with Monica Rashid MD 02/2019 Nicotine related disorders STANDARD OV with Monica Rashid MD 08/21/2019 Right medial epicondylitis STANDARD OV with Monica Rashid MD 08/21/2019 Underweight STANDARD OV with Monica Rashid MD 02/2019 [place]stit[place] [facility] [place] 2 DAYS OF MEDS D/ T N/V STANDARD OV with Monica Rashid MD 07/23/2019 Chronic pain STANDARD OV with Monica Rashid MD 03/2019 Common migraine without aura last attack mos ago. ajo vy x 2 mos STANDARD OV with Monica Rashid MD 07/23/2019 Gastritis on ranitidine bid STANDARD OV with Monica ge MD 07/23/2019 Hypokalemia STANDARD OV with Monica Rashid MD 03/2019 Abnormal uterine bleeding ENDO BX with Monica Rashid MD Chronic obstructive pulmonary disease STANDARD OV with Kellie Olson GALLEY BOY 06/24/2019 Chronic pain STANDARD OV with Kellie A Danita G[employer]Y 019 Gastritis STANDARD OV with Kellie A Danita [employer] 019 Migraine headache STANDARD OV with Kellie A Danita [employer] 019 Nausea STANDARD OV with Kellie A Danita G[employer] 019 Abnormal uterine bleeding STANDARD OV with Monica Kelsey 06/10/2019 Nausea X FEW WEEKS STANDARD OV with Monica Rashid MD 05/19 Nicotine related disorders STANDARD OV with Monica Rashid MD 06/10/2019 Abnormal vaginal bleeding STANDARD OV with Monica Kelsey 05/26/2019 Chronic pain STANDARD OV with Monica Rashid MD 07/2019 Common migraine without aura with intrac table migraine MENSAH ON OFF .OCCURS QD X YRS STANDARD OV with Monica Rashid MD 05/26/2019 Chronic pain STANDARD OV with Monica Rashid MD 03/19 Classic migraine (with aura) STANDARD OV with Monica ge MD 04/14/2019 Chronic pain STANDARD OV with Monica Rashid MD 12/2018 Common migraine without aura without int ractable migraine OCCURS 5-7 DAYS/WEEK X 20 YRS STANDARD OV with Monica Rashid MD 03/19/2019 Underweight STANDARD OV with Monica Rashid MD 12/2018 Chronic pain STANDARD OV with Monica Rashid MD 01/17 Common migraine without aura with intractable migraine STANDARD OV with Monica Rashid MD 02/10/2019 Constipation STANDARD OV with Monica Rashid MD 01/17 Chronic pain STANDARD OV with Monica Rashid MD 12/20 Common migraine without aura STANDARD OV with Monica ge MD 01/14/2019 Dentoalveolar abscess STANDARD OV with Monica Rashid MD Nausea ZOFRAN USED 1 WK AGO STANDARD OV with Monica ge MD 01/14/2019 Underweight STANDARD OV with Monica Rashid MD 12/20 Routine adult history and physical (18-64 yrs) without abnormal findings ANNUAL PHYSICAL EXAM with Monica Rashid MD 12/15/2018 Underweight ANNUAL PHYSICAL EXAM with Monica ge MD 12/15/2018 Chronic pain EXTENDED VISIT with Monica aRshid MD 0 11/27/2018 Headache syndromes EXTENDED VISIT with Monica Rashid MD 0 11/27/2018 Nausea EXTENDED VISIT with Monica Rashid MD 0 11/27/2018 Underweight EXTENDED VISIT with Monica Rashid MD 0 11/27/2018 Arthralgia STANDARD OV with Monica Rashid MD 10/18 Common cold STANDARD OV with Monica Rashid MD 10/18 Common migraine without aura WAS ON SUMATRIPTAN > 1YR AGO STANDARD OV with Monica Rashid MD 10/30/2018 Nausea STANDARD OV with Monica Rashid MD 10/18 Abnormal vaginal bleeding STANDARD OV with Monica Kelsey 10/22/2018 Chronic pain STANDARD OV with Monica Rashid MD 03/2018 Diarrhea STANDARD OV with Monica Rashid MD 03/2018 Nausea STANDARD OV with Monica Rashid MD 03/2018 Chronic pain STANDARD OV with Monica Rashid MD 06/2018 Chronic pain STANDARD OV with Monica Rashid MD 08/18 Nicotine related disorders STANDARD OV with Monica Rashid MD 08/27/2018 Underweight STANDARD OV with Monica Rashid MD 08/18 Chronic obstructive pulmonary disease STANDARD OV with Danielle Rashid MD 07/31/2018 Chronic pain STANDARD OV with Monica Rashid MD 07/19 Nicotine related disorders STANDARD OV with Monica Rashid MD 07/31/2018 Underweight STANDARD OV with Monica Rashid MD 07/19 Depression EXTENDED VISIT with Monica Rashid MD 0 07/02/2018 Nicotine related disorders EXTENDED VISIT with Monica orr MD 07/02/2018 Right medial epicondylitis EXTENDED VISIT with Monica orr MD 07/02/2018 Underweight EXTENDED VISIT with Monica Rashid MD 0 07/02/2018 Chronic pain STANDARD OV with Monica Rashid MD 05/18 Lateral epicondylitis of right elbow hu rts to pick things up, shooting pains x 2 mos. worse x 2 wks STANDARD OV with Monica Rashid MD 05/29/2018 Nicotine related disorders STANDARD OV with Monica Rashid MD 05/29/2018 Underweight STANDARD OV with Monica Rashid MD 05/18 Acute cystitis STANDARD OV with Monica Rashid MD 04/18 Chronic obstructive pulmonary disease D ID NOT FILL ADVAIR D/T $, LAST USED PROAIR MOS AGO, DID NOT REFILL D/T $ "IT'S 1/2 MY PAY CHECK" STANDARD OV with Monica Rashid MD 04/30/2018 Nicotine related disorders SMOKING COSTS HER > 1/2 HE R PAYCHECK STANDARD OV with Monica Rashid MD 04/30/2018 Underweight STANDARD OV with Monica Rashid MD 04/18 Chronic pain STANDARD OV with Monica Rashid MD 03/18 Left-sided sciatica STANDARD OV with Monica Rashid MD 03/18 Chronic pain STANDARD OV with Monica Rashid MD 02/16 Fibrocystic disease of left breast STANDARD OV with Monica Rashid MD 03/03/2018 Nicotine related disorders STANDARD OV with Monica Rashid MD 03/03/2018 Chronic pain STANDARD OV with Kellie Pabon 018 Assessment of dyspnea during exertion STANDARD OV with Danielle Rashid MD 01/02/2018 Childhood asthma STANDARD OV with Monica Rashid MD 12/19 Fatigue STANDARD OV with Monica Rashid MD 12/19 Nicotine related disorders STANDARD OV with Monica Rashid MD 01/02/2018 Chronic obstructive pulmonary disease STANDARD OV with Danielle Rashid MD 12/02/2017 Chronic pain STANDARD OV with Monica Rashid MD 11/18 Cystitis STANDARD OV with Monica Rashid MD 11/18 Lumbar disc degeneration STANDARD OV with Monica Rashid MD 12/02/2017 Nicotine related disorders STANDARD OV with Monica Rashid MD 12/02/2017 Backache STANDARD OV with Kellie Olson GALLEY BOY 017 Backache STANDARD OV with Kellie Olson G[employer] BOY 017 Working diagnosis of abdominal pain WRITE-IN (SAME DAY) with Kellie OrlandoP 09/26/2017 Abnormal vaginal bleeding STANDARD OV with Monica Kelsey 09/05/2017 Chronic obstructive pulmonary disease STANDARD OV with Danielle Rashid MD 09/05/2017 Chronic pain STANDARD OV with Monica Rashid MD 08/18 Left-sided sciatica STANDARD OV with Monica Rashid MD 08/18 Chronic pain STANDARD OV with Kellie OrlandoP 017 Closed [place] I fracture l cheek STANDARD OV with Monica Rashid MD 07/11/2017 Left-sided sciatica STANDARD OV with Monica Rashid MD 06/19 Nicotine related disorders STANDARD OV with Monica Rashid MD 07/11/2017 Maxillary fracture on left side EMERGENCY ROOM FOLLOW- UP with Monica Rashid MD 07/08/2017 Assessment of metatarsus adductus of the left foot was observed STANDARD OV with oMnica Rashid MD 06/12/2017 Chronic pain STANDARD OV with Monica Rashid MD 05/19 Assessment of hematoma L CHEEK WRITE-IN (SAME DAY) with Quang Rashid MD 06/10/2017 Nicotine related disorders WRITE-IN (SAME DAY) with Monica Rashid MD 06/10/2017 Assessment of lower back pain ANNUAL PHYSICAL EXAM with Leopoldo Rashid MD 05/07/2017 Nephrolithiasis of the right kidney NO SXS ANNUAL PHY SICAL EXAM with Monica Rashid MD 05/07/2017 Routine adult history and physical (18-64 yrs) with ab normal findings ANNUAL PHYSICAL EXAM with Monica Rashid MD 05/07/2017 Secondary amenorrhea NOW MENSTRUATING. S/P MIRENA INO UAL PHYSICAL EXAM with Monica Rashid MD 05/07/2017 Abdominal pain STANDARD OV with Monica Rashid MD 03/2017 Abnormal uterine bleeding STANDARD OV with Monica Kelsey 04/22/2017 Fatigue STANDARD OV with Monica Rashid MD 03/2017 Gestational diabetes mellitus STANDARD OV with Monica orr MD 04/22/2017 Nausea STANDARD OV with Monica Rashid MD 03/2017 Nicotine related disorders STANDARD OV with Monica Rashid MD 04/22/2017 Lower backache WRITE-IN (SAME DAY) with Kellie Pabon 04/08/2017 Chronic obstructive pulmonary disease NEW PATIENT EVAL UATION with Monica Rashid MD 04/03/2017 Chronic pain syndrome NEW PATIENT EVALUATION with Monica Rashid MD 04/03/2017 Classic migraine (with aura) without int ractable migraine CONTROLLED W/ SUMATRIPTAN 100 MG NEW PATIENT EVALUATION with Monica Rashid MD 017 Drug-induced constipation NEW PATIENT EVALUATION with Beatriz Rashid MD 04/03/2017 Foot drop NEW PATIENT EVALUATION with Monica turner MD 04/03/2017 Nicotine related disorders 1 PPD NEW PATIENT EVALUATI ON with Monica Rashid MD 04/03/2017 Underweight NEW PATIENT EVALUATION with Monica turner MD 04/03/2017 Instructions Instructions not supported for this document typeNo Instructions Recorded Medical Equipment - Implanted Devices Includes: Current and historical DevicesNo Medical Equipment Recorded Medications Includes: Current and historical Medications Current Medications (continue as prescribed) Percocet 10-325 MG Oral Tablet 08/18/2021 - 09/17/2021 Provi danita: Donna Diaz [employer]ING [employer]ORDINATOR Diagnosis: Chronic pain syndrom e one tab every 4-6 hours as needed , MDD #6 SUMAtriptan Succinate 100 MG Oral Tablet 08/18/2021 - 2020 Provider: Donna Diaz [employer]ING COORDINATOR Diagnosis: Migraine without aur a, intractable, with status migrainosus 100mg po x 1 dose for MENSAH, repeat x 1 aft er 2 hours, MDD 200MG, 20- 28 migraines /month Pantoprazole Sodium 20 MG Oral Tablet Delayed Release 2020 Provider: oDnna Diaz [employer]ING COORDINATOR Diagnosis: Gastro-esophageal re flux disease without esophagitis (GERD) 20 mg po every day , please d/c nexium d/t ins. Gabapentin 100 MG Oral Capsule 06/21/2021 - 09/19/2021 Provi danita: Donna Diaz NP Diagnosis: Low back pain 2 (200 MG) PO TID W/ 800 MG PO TID Ondansetron 4 MG Oral Tablet Disintegrating 06/21/2021 - 12/2020 Provider: Donna Diaz [employer]ING COORDINATOR Diagnosis: Nausea 1 PO TID PRN LAST USED 3 DAYS AGO Gabapentin 800 MG Oral Tablet 06/21/2021 - 09/19/2021 Provid er: Donna Diaz [employer]ING COORDINATOR Diagnosis: Low back pain three times a day with 100 mg TID Past Medications on file Percocet 10-325 MG Oral Tablet 07/25/2021 - 08/18/2021 Provi danita: Donna Diaz [employer]ING COORDINATOR Diagnosis: one tab every 4-6 hours as needed , MDD #6 NexIUM 20 MG Oral Capsule Delayed Release 07/19/2021 - 07/26 Provider: Donna Diaz [employer]ING COORDINATOR Diagnosis: Gastro-esophageal re flux disease without esophagitis (GERD) TAKE 1 TAB BY MOUTH TWICE A DAY Percocet 10-325 MG Oral Tablet 07/19/2021 - 07/19/2021 Provi danita: Donna Diaz [employer]ING COORDINATOR Diagnosis: Chronic pain syndrom e one tab every 4-6 hours as needed , MDD #6 Famotidine 40 MG Oral Tablet 07/05/2021 - 07/19/2021 Provide r: Donna Diaz [employer]ING COORDINATOR Diagnosis: Heartburn 40 mg po every day for heartburn Percocet 10-325 MG Oral Tablet 06/21/2021 - 07/19/2021 Provi danita: Donna Diaz [employer]ING COORDINATOR Diagnosis: Chronic pain syndrom e one tab every 4-6 hours as needed , MDD #6 Percocet 10-325 MG Oral Tablet 05/24/2021 - 06/21/2021 Provi danita: Donna Diaz [employer]ING COORDINATOR Diagnosis: Chronic pain syndrom e one tab every 4-6 hours as needed , MDD #6 SUMAtriptan Succinate 100 MG Oral Tablet 05/24/2021 - 2020 Provider: Donna Diaz [employer]ING COORDINATOR Diagnosis: Migraine without aur a, intractable, with status migrainosus 100mg po x 1 dose for MENSAH, repeat x 1 aft er 2 hours, MDD 200MG, 20- 28 migraines /month Percocet 10-325 MG Oral Tablet 04/26/2021 - 05/24/2021 Provi danita: Monica Rashid MD Diagnosis: Chronic pain syndrom e one tab every 4-6 hours as needed , MDD #6 Percocet 10-325 MG Oral Tablet 03/27/2021 - 04/26/2021 Provi danita: Monica Rashid MD Diagnosis: Chronic pain syndrom e one tab every 4-6 hours as needed , MDD #6 Gabapentin 800 MG Oral Tablet 03/27/2021 - 06/21/2021 Provid er: Monica Rashid MD Diagnosis: Low back pain three times a day with 100 mg TID Gabapentin 100 MG Oral Capsule 03/27/2021 - 06/21/2021 Provi danita: Monica Rashid MD Diagnosis: Low back pain 2 (200 MG) PO TID W/ 800 MG PO TID Ondansetron 4 MG Oral Tablet Disintegrating 03/27/2021 - 02/2021 Provider: Monica Rashid MD Diagnosis: Nausea 1 PO TID PRN LAST USED 3 DAYS AGO Metoprolol Succinate ER 100 MG Oral Tablet Extended Re lease 24 Hour 03/27/2021 - 04/26/2021 Provider: Monica Rashid MD Diagnosis: Migraine w/o aura, n ot intractable, w/o status migrainosus Take as directed TAKE QOD X 2 WEEKS THEN QUIT Percocet 10-325 MG Oral Tablet 02/21/2021 - 03/27/2021 Provi danita: Monica Rashid MD Diagnosis: Chronic pain syndrom e one tab every 4-6 hours as needed , MDD #6 SUMAtriptan Succinate 100 MG Oral Tablet 02/21/2021 - 2020 Provider: Monica Rashid MD Diagnosis: Migraine without aur a, intractable, with status migrainosus 100mg po x 1 dose for MENSAH, repeat x 1 aft er 2 hours, MDD 200MG, 20- 28 migraines /month Percocet 10-325 MG Oral Tablet 01/24/2021 - 02/21/2021 Provi danita: Donna Diaz [employer]ING COORDINATOR Diagnosis: Chronic pain syndrom e one tab every 4-6 hours as needed , MDD #6 Metoprolol Succinate ER 100 MG Oral Tablet Extended Re lease 24 Hour 12/29/2020 - 03/27/2021 Provider: Donna Diaz NP Diagnosis: Migraine w/o aura, n ot intractable, w/o status migrainosus 1 every day RAISED FROM 50 MG QD Ondansetron 4 MG Oral Tablet Disintegrating 12/29/2020 - 08/2021 Provider: Donna Diaz [employer]ING COORDINATOR Diagnosis: Nausea 1 PO TID PRN LAST USED 4 DAYS AGO Percocet 10-325 MG Oral Tablet 12/29/2020 - 01/24/2021 Provi danita: Donna Diaz [employer]ING COORDINATOR Diagnosis: Chronic pain syndrom e one tab every 4-6 hours as needed , MDD #6 Percocet 10-325 MG Oral Tablet 11/28/2020 - 12/29/2020 Provi danita: Donna Diaz [employer]ING COORDINATOR Diagnosis: Chronic pain syndrom e one tab every 4-6 hours as needed , MDD #6 Ajovy 225 MG/1.5ML Subcutaneous Solution Prefilled Syr cat 11/28/2020 - 03/27/2021 Provider: Donna Diaz NP Diagnosis: Migraine with aura, not intractable, w/o status migrainosus 225 mg SQ q month approved through ins. SUMAtriptan Succinate 100 MG Oral Tablet 10/28/2020 - 2020 Provider: Donna Diaz NP Diagnosis: Migraine without aur a, intractable, with status migrainosus 100mg po x 1 dose for MENSAH, repeat x 1 aft er 2 hours, MDD 200MG, 20- 28 migraines /month Percocet 10-325 MG Oral Tablet 10/28/2020 - 11/28/2020 Provi danita: Donna Diaz [employer]ING COORDINATOR Diagnosis: Chronic pain syndrom e one tab every 4-6 hours as needed , MDD #6 Ondansetron 4 MG Oral Tablet Disintegrating 09/30/2020 - 09/2021 Provider: Donna Diaz [employer] FARMING COORDINATOR Diagnosis: Nausea 1 PO TID PRN LAST USED 4 DAYS AGO Percocet 10-325 MG Oral Tablet 09/30/2020 - 10/28/2020 Provi danita: Donna Diaz [employer]ING COORDINATOR Diagnosis: Chronic pain syndrom e one tab every 4-6 hours as needed , MDD #6 Metoprolol Succinate ER 100 MG Oral Tablet Extended Re lease 24 Hour 09/30/2020 - 12/29/2020 Provider: Donna Diaz [employer]ING COORDINATOR Diagnosis: Migraine w/o aura, n ot intractable, w/o status migrainosus 1 every day RAISED FROM 50 MG QD Gabapentin 100 MG Oral Capsule 09/30/2020 - 03/27/2021 Provi danita: Donna Diaz [employer]ING COORDINATOR Diagnosis: Low back pain 2 (200 MG) PO TID W/ 800 MG PO TID Gabapentin 800 MG Oral Tablet 09/30/2020 - 03/27/2021 Provid er: Donna Diaz [employer]ING COORDINATOR Diagnosis: Low back pain three times a day with 100 mg TID SUMAtriptan Succinate 100 MG Oral Tablet 09/01/2020 - 2019 Provider: Donna Diaz [employer]ING COORDINATOR Diagnosis: Migraine without aur a, intractable, with status migrainosus 100mg po x 1 dose for MENSAH, repeat x 1 aft er 2 hours, MDD 200MG, 20- 28 migraines /month Percocet 10-325 MG Oral Tablet 09/01/2020 - 09/30/2020 Provi danita: Donna Diaz NP Diagnosis: Chronic pain syndrom e one tab every 4-6 hours as needed , MDD #6 Metoprolol Succinate ER 100 MG Oral Tablet Extended Re lease 24 Hour 08/02/2020 - 09/30/2020 Provider: Donna Diaz [employer]ING COORDINATOR Diagnosis: Migraine w/o aura, n ot intractable, w/o status migrainosus 1 every day RAISED FROM 50 MG QD Percocet 10-325 MG Oral Tablet 08/02/2020 - 09/01/2020 Provi danita: Donna Diaz [employer]ING COORDINATOR Diagnosis: Chronic pain syndrom e one tab every 4-6 hours as needed , MDD 6 Ajovy 225 MG/1.5ML Subcutaneous Solution Prefilled Syr cat 08/02/2020 - 11/28/2020 Provider: Donna Diaz [employer]ING COORDINATOR Diagnosis: Migraine with aura, not intractable, w/o status migrainosus 225 mg SQ q month approved through ins. Percocet 10-325 MG Oral Tablet 07/05/2020 - 08/24/2020 Provi danita: Monica Rashid MD Diagnosis: Other chronic pain 1 every 4 - 6 hours as needed MDD 6 Percocet 10-325 MG Oral Tablet 06/30/2020 - 08/02/2020 Provi danita: Monica Rashid MD Diagnosis: Chronic pain syndrom e one tab every 4-6 hours as needed , MDD 6 HAS 4 DAYS Percocet 10-325 MG Oral Tablet 06/09/2020 - 05/30/2020 Provi danita: Monica Rashid MD Diagnosis: Chronic pain syndrom e one tab every 4-6 hours as needed , MDD 6 ( balance from script written on 05/30/2020 when #59 were given) Percocet 10-325 MG Oral Tablet 06/09/2020 - 06/30/2020 Provi danita: Monica Rashid MD Diagnosis: Chronic pain syndrom e one tab every 4-6 hours as needed , MDD 6 ( balance from script written on 05/30/2020 when #59 were given) Kenalog 40 MG/ML Injection Suspension 05/30/2020 - 0 Provider: Monica Rashid MD Diagnosis: Medial epicondylitis , left elbow INJECT TO L ELBOW IN OFFICE Percocet 10-325 MG Oral Tablet 05/30/2020 - 05/30/2020 Provi danita: Monica Rashid MD Diagnosis: Chronic pain syndrom e one tab every 4-6 hours as needed , MDD 6 Lidocaine HCl 1% Injection Solution 05/30/2020 - 06/30/2020 Provider: Monica Rashid MD Diagnosis: Medial epicondylitis , left elbow INJECT W/ KENALOG TO L ELBOW IN OFFICE SUMAtriptan Succinate 100 MG Oral Tablet 05/02/2020 - 2019 Provider: Monica Rashid MD Diagnosis: Migraine without aur a, intractable, with status migrainosus 100mg po x 1 dose for MENSAH, repeat x 1 aft er 2 hours, MDD 200MG, 20- 28 migraines /month PLEASE D/C PREVIOUS SCRIPT Percocet 10-325 MG Oral Tablet 05/02/2020 - 05/30/2020 Provi danita: Monica Rashid MD Diagnosis: Chronic pain syndrom e one tab every 4-6 hours as needed , MDD 6 Metoprolol Succinate ER 100 MG Oral Tablet Extended Re lease 24 Hour 05/02/2020 - 08/02/2020 Provider: Monica Rashid MD Diagnosis: Migraine w/o aura, n ot intractable, w/o status migrainosus 1 every day RAISED FROM 50 MG QD Ajovy 225 MG/1.5ML Subcutaneous Solution Prefilled Syr cat 04/28/2020 - 08/02/2020 Provider: Monica Rashid MD Diagnosis: Migraine with aura, not intractable, w/o status migrainosus 225 mg SQ q month approved through ins. Gabapentin 100 MG Oral Capsule 04/01/2020 - 09/30/2020 Provi danita: Monica Rashid MD Diagnosis: Low back pain 2 (200 MG) PO TID W/ 800 MG PO TID Percocet 10-325 MG Oral Tablet 04/01/2020 - 05/02/2020 Provi danita: Monica Rashid MD Diagnosis: Chronic pain syndrom e one tab every 4-6 hours as needed , MDD 6 Ondansetron 4 MG Oral Tablet Disintegrating 04/01/2020 - Provider: Monica Rashid MD Diagnosis: Nausea 1 PO TID PRN LAST USED 4 DAYS AGO SUMAtriptan Succinate 100 MG Oral Tablet 04/01/2020 - 2019 Provider: Monica Rashid MD Diagnosis: Migraine without aur a, intractable, with status migrainosus 100mg po x 1 dose for MENSAH, repeat x 1 aft er 2 hours, MDD 200MG, 20- 28 migraines /month PLEASE D/C PREVIOUS SCRIPT Gabapentin 800 MG Oral Tablet 04/01/2020 - 09/30/2020 Provid er: Monica Rashid MD Diagnosis: Low back pain three times a day with 100 mg TID Percocet 10-325 MG Oral Tablet 03/02/2020 - 04/01/2020 Provi danita: Monica Rashid MD Diagnosis: Chronic pain syndrom e one tab every 4-6 hours as needed , MDD 6 Metoprolol Succinate ER 100 MG Oral Tablet Extended Re lease 24 Hour 03/02/2020 - 05/02/2020 Provider: Monica Rashid MD Diagnosis: Migraine w/o aura, n ot intractable, w/o status migrainosus 1 every day RAISED FROM 50 MG QD Percocet 10-325 MG Oral Tablet 02/02/2020 - 03/02/2020 Provi danita: Monica Rashid MD Diagnosis: Chronic pain syndrom e one tab every 4-6 hours as needed , MDD 6 Gabapentin 100 MG Oral Capsule 01/05/2020 - 04/01/2020 Provi danita: Monica Rashid MD Diagnosis: Low back pain 2 (200 MG) PO TID W/ 800 MG PO TID Gabapentin 800 MG Oral Tablet 01/05/2020 - 04/01/2020 Provid er: Monica Rashid MD Diagnosis: Low back pain three times a day with 100 mg TID Ondansetron 4 MG Oral Tablet Disintegrating 01/05/2020 - Provider: Monica Rashid MD Diagnosis: Nausea 1 PO TID PRN SUMAtriptan Succinate 100 MG Oral Tablet 01/05/2020 - 2019 Provider: Monica Rashid MD Diagnosis: Migraine without aur a, intractable, with status migrainosus 100mg po x 1 dose for MENSAH, repeat x 1 aft er 2 hours, MDD 200MG, 20- 28 migraines /monthPLEASE D/C PREVIOUS SCRIPT Percocet 10-325 MG Oral Tablet 01/05/2020 - 02/02/2020 Provi danita: Monica Rashid MD Diagnosis: Chronic pain syndrom e one tab every 4-6 hours as needed , MDD 6 Metoprolol Succinate ER 50 MG Oral Tablet Extended Rel ease 24 Hour 01/05/2020 - 03/02/2020 Provider: Monica Rashid MD Diagnosis: Chronic migraine w/o aura, not intractable, w stat migr 1 every day RAISED FROM 25 MG Klor-Con M20 20 MEQ Oral Tablet Extended Release 12/07/2019 - 01/05/2020 Provider: Mevlin Noriega MD Diagnosis: Hypokalemia 20 MEQ bid FOR HYPOKALEMIA Percocet 10-325 MG Oral Tablet 12/07/2019 - 01/05/2020 Provi danita: Melvin Noriega MD Diagnosis: Chronic pain syndrom e one tab every 4-6 hours as needed , MDD 6 Percocet 10-325 MG Oral Tablet 11/19/2019 - 12/07/2019 Provi danita: Monica Rashid MD Diagnosis: Chronic pain syndrom e one tab every 4-6 hours as needed , MDD 6 Percocet 10-325 MG Oral Tablet 11/17/2019 - 11/16/2019 Provi danita: Melvin Noriega MD Diagnosis: Chronic pain syndrom e one tab every 4-6 hours as needed , MDD 6 SUMAtriptan Succinate 100 MG Oral Tablet 10/20/2019 - 2019 Provider: Monica Rashid MD Diagnosis: Migraine without aur a, intractable, with status migrainosus 100mg po x 1 dose for MENSAH, repeat x 1 aft er 2 hours, MDD 200MG, 20- 28 migraines /monthPLEASE D/C PREVIOUS SCRIPT SUMAtriptan Succinate 100 MG Oral Tablet 10/20/2019 - 2018 Provider: Monica Rashid MD Diagnosis: Migraine without aur a, intractable, with status migrainosus 100mg po x 1 dose for MENSAH, may repeat x 1 after 2 hours if no relief, MDD 200MG, PLEASE D/C PREVIOUS SCRIPT SUMAtriptan Succinate 50 MG Oral Tablet 10/19/2019 - 019 Provider: Monica Rashid MD Diagnosis: Migraine w/o aura, n ot intractable, w/o status migrainosus 1 PO W/ MENSAH, REPEAT X 1 AFTER 2 HRS MDD 200mg, approx. 20-28 migraine days per month Metoprolol Succinate ER 50 MG Oral Tablet Extended Rel ease 24 Hour 10/19/2019 - 01/05/2020 Provider: Monica Rashid MD Diagnosis: Chronic migraine w/o aura, not intractable, w stat migr 1 every day RAISED FROM 25 MG Gabapentin 800 MG Oral Tablet 10/19/2019 - 01/05/2020 Provid er: Monica Rashid MD Diagnosis: Low back pain Three times a day w/ 100 mg tid Ondansetron 4 MG Oral Tablet Disintegrating 10/19/2019 - Provider: Monica Rashid MD Diagnosis: Nausea 1 PO TID PRN Gabapentin 100 MG Oral Capsule 10/19/2019 - 01/05/2020 Provi danita: Mnoica Rashid MD Diagnosis: Low back pain 2 (200 MG) PO TID W/ 800 MG PO TID Klor-Con M20 20 MEQ Oral Tablet Extended Release 10/19/2019 - 12/07/2019 Provider: Monica Rashid MD Diagnosis: Hypokalemia 20 MEQ bid FOR HYPOKALEMIA Ajovy 225 MG/1.5ML Subcutaneous Solution Prefilled Syr cat 10/19/2019 - 04/04/2020 Provider: Monica Rashid MD Diagnosis: Migraine with aura, not intractable, w/o status migrainosus 225 mg SQ q month approved through ins. Percocet 10-325 MG Oral Tablet 10/19/2019 - 11/16/2019 Provi danita: Monica Rashid MD Diagnosis: Other chronic pain 1 every 4 - 6 hours as needed MDD: 6 TABS Percocet 10-325 MG Oral Tablet 10/09/2019 - 10/19/2019 Provi danita: Monica Rashid MD Diagnosis: Other chronic pain 1 every 4 - 6 hours as needed MDD: 6 TABS Percocet 10-325 MG Oral Tablet 09/22/2019 - 09/22/2019 Provi danita: Monica Rashid MD Diagnosis: Other chronic pain 1 every 4 - 6 hours as needed MDD: 6 TABS Percocet 10-325 MG Oral Tablet 08/21/2019 - 09/22/2019 Provi danita: Monica Rashid MD Diagnosis: Other chronic pain 1 every 4 - 6 hours as needed MDD: 6 TABS SUMAtriptan Succinate 50 MG Oral Tablet 08/18/2019 - 019 Provider: Monica Rashid MD Diagnosis: Migraine w/o aura, n ot intractable, w/o status migrainosus 1 PO W/ MENSAH, REPEAT X 1 AFTER 2 HRS MDD 200mg, approx. 20-28 migraine days per month Percocet 10-325MG Oral Tablet 07/23/2019 - 08/21/2019 Provid er: Monica Rashid MD Diagnosis: Other chronic pain 1 every 4 - 6 hours as needed MDD: 6 TABS raNITIdine HCl 150MG Oral Tablet 07/23/2019 - 10/19/2019 Pro vider: Monica Rashid MD Diagnosis: Unspecified chronic gastritis without bleeding 1 tab twice a day Ajovy 225MG/1.5ML Subcutaneous Solution Prefilled Syri nge 07/23/2019 - 10/19/2019 Provider: Monica Rashid MD Diagnosis: Migraine with aura, not intractable, w/o status migrainosus 225 mg SQ q month approved through ins. Klor-Con M20 Oral Tablet Extended Release 07/23/2019 - 10/19 Provider: Monica Rashid MD Diagnosis: Hypokalemia 20 MEQ bid FOR HYPOKALEMIA SUMAtriptan Succinate 50MG Oral Tablet 07/23/2019 - 07/23/20 19 Provider: Monica Rashid MD Diagnosis: Migraine w/o aura, n ot intractable, w/o status migrainosus 1 PO W/ MENSAH, REPEAT X 1 AFTER 2 HRS Klor-Con M20 Oral Tablet Extended Release 06/25/2019 - 07/23 Provider: Kellie Pabon Diagnosis: Hypokalemia 20 MEQ bid FOR HYPOKALEMIA Percocet 10-325MG Oral Tablet 06/24/2019 - 07/23/2019 Provid er: Kellie Isha Olson GALLEY BOY Diagnosis: Other chronic pain 1 every 4 - 6 hours as needed MDD: 6 TABS raNITIdine HCl 150MG Oral Tablet 06/24/2019 - 07/23/2019 Pro vider: Kellie Isha Olson G[employer] BOY Diagnosis: Unspecified chronic gastritis without bleeding 1 tab twice a day Gabapentin 100MG Oral Capsule 05/27/2019 - 10/19/2019 Provid er: Monica Rashid MD Diagnosis: Low back pain 2 (200 MG) PO TID W/ 800 MG PO TID Percocet 10-325MG Oral Tablet 05/26/2019 - 06/24/2019 Provid er: Monica Rashid MD Diagnosis: Other chronic pain 1 every 4 - 6 hours as needed MDD: 6 TABS Ondansetron 4MG Oral Tablet Disintegrating 05/26/2019 - 1212/2018 Provider: Monica Rashid MD Diagnosis: Nausea 1 PO TID PRN Metoprolol Succinate ER 50MG Oral Tablet Extended Rele ase 24 Hour 05/26/2019 - 10/19/2019 Provider: Monica Rashid MD Diagnosis: Chronic migraine w/o aura, not intractable, w stat migr 1 every day RAISED FROM 25 MG Omeprazole 20MG Oral Capsule Delayed Release 05/26/2019 - Provider: Monica Rashid MD Diagnosis: Heartburn 1 Every morning Gabapentin 800MG Oral Tablet 05/26/2019 - 10/19/2019 Provide r: Monica Rashid MD Diagnosis: Low back pain Three times a day w/ 100 mg tid Gabapentin 100MG Oral Capsule 05/26/2019 - 05/26/2019 Provid er: Monica Rashid MD Diagnosis: Low back pain Take as directed 2 (200 MG) PO TID W/ 800 MG PO TID SUMAtriptan Succinate 50MG Oral Tablet 05/05/2019 - 07/23/20 19 Provider: Monica Rashid MD Diagnosis: Migraine w/o aura, n ot intractable, w/o status migrainosus 1 PO W/ MENSAH, REPEAT X 1 AFTER 2 HRS Ajovy 225MG/1.5ML Subcutaneous Solution Prefilled Syri nge 04/15/2019 - 07/23/2019 Provider: Monica Rashid MD Diagnosis: Migraine with aura, not intractable, w/o status migrainosus 225 mg SQ q month approved through ins. Percocet 10-325MG Oral Tablet 04/14/2019 - 05/26/2019 Provid er: Monica Rashid MD Diagnosis: Other chronic pain 1 every 4 - 6 hours as needed MDD: 6 TABS Ajovy 225MG/1.5ML Subcutaneous Solution Prefilled Syri nge 04/14/2019 - 04/14/2019 Provider: Monica Rashid MD Diagnosis: Migraine with aura, not intractable, w/o status migrainosus 225 mg SQ q month (first was given in office on 03-19-19 Ajovy 225MG/1.5ML Subcutaneous Solution Prefilled Syri nge 03/24/2019 - 04/14/2019 Provider: Monica Rashid MD Diagnosis: Migraine with aura, not intractable, w/o status migrainosus 225 mg SQ q month (first was given in office on 03-19-19 Percocet 10-325MG Oral Tablet 03/24/2019 - 04/14/2019 Provid er: Monica Rashid MD Diagnosis: Other chronic pain 1 every 4 - 6 hours as needed MDD: 6 TABS Omeprazole 20MG Oral Capsule Delayed Release 03/19/2019 - Provider: Monica Rashid MD Diagnosis: Heartburn 1 Every morning Percocet 10-325MG Oral Tablet 03/19/2019 - 03/19/2019 Provid er: Monica Rashid MD Diagnosis: Other chronic pain 1 every 4 - 6 hours as needed MDD: 6 TABS Metoprolol Succinate ER 50MG Oral Tablet Extended Rele ase 24 Hour 03/19/2019 - 05/26/2019 Provider: Monica Rashid MD Diagnosis: Chronic migraine w/o aura, not intractable, w stat migr 1 every day RAISED FROM 25 MG Metoprolol Succinate ER 25MG Oral Tablet Extended Rele ase 24 Hour 03/19/2019 - 03/19/2019 Provider: Monica Rashid MD Diagnosis: Chronic migraine w/o aura, intractable, w status migrainosus 1 every day Gabapentin 800MG Oral Tablet 03/19/2019 - 05/26/2019 Provide r: Monica Rashid MD Diagnosis: Low back pain Three times a day w/ 100 mg tid Gabapentin 100MG Oral Capsule 03/19/2019 - 05/26/2019 Provid er: Monica Rashid MD Diagnosis: Low back pain Take as directed 2 (200 MG) PO TID W/ 800 MG PO TID Aimovig 70MG/ML Subcutaneous Solution Auto-injector 02/11/20 19 - 03/19/2019 Provider: Monica Rashid MD Diagnosis: Migraine without aur a, intractable, with status migrainosus 70 MG SC Q MO Percocet 10-325MG Oral Tablet 02/10/2019 - 03/19/2019 Provid er: Monica Rashid MD Diagnosis: Other chronic pain 1 every 4 - 6 hours as needed MDD: 6 TABS HAS 6 DAYS LEFT Clindamycin HCl 300MG Oral Capsule 01/14/2019 - 02/10/2019 P rovider: Monica Rashid MD Diagnosis: Periapical abscess w ithout sinus 600 MG LOADING DOSE THEN 300 MG PO QID Percocet 10-325MG Oral Tablet 01/14/2019 - 02/10/2019 Provid er: Monica Rashid MD Diagnosis: Other chronic pain 1 every 4 - 6 hours as needed MDD: 6 TABS HAS 4 DAYS LEFT Percocet 10-325MG Oral Tablet 01/14/2019 - 01/14/2019 Provid er: Monica Rashid MD Diagnosis: Other chronic pain 1 every 4 - 6 hours as needed MDD: 6 TABS HAS 12 LEFT Metoprolol Succinate ER 25MG Oral Tablet Extended Rele ase 24 Hour 01/14/2019 - 03/19/2019 Provider: Monica Rashid MD Diagnosis: Chronic migraine w/o aura, intractable, w status migrainosus 1 every day SUMAtriptan Succinate 50MG Oral Tablet 01/14/2019 - 04/14/20 Provider: Monica Rashid MD Diagnosis: Migraine w/o aura, n ot intractable, w/o status migrainosus 1 PO W/ MENSAH, REPEAT X 1 AFTER 2 HRS Percocet 10-325MG Oral Tablet 12/15/2018 - 01/14/2019 Provid er: Monica Rashid MD Diagnosis: Other chronic pain 1 every 4 - 6 hours as needed MDD: 6 TABS HAS 12 LEFT SUMAtriptan Succinate 50MG Oral Tablet 12/15/2018 - 01/14/20 19 Provider: Monica Rashid MD Diagnosis: Migraine w/o aura, n ot intractable, w/o status migrainosus 1 PO W/ MENSAH, REPEAT X 1 AFTER 2 HRS Ondansetron 4MG Oral Tablet Disintegrating 12/15/2018 - 07/2019 Provider: Monica Rashid MD Diagnosis: Nausea 1 PO TID PRN Gabapentin 800MG Oral Tablet 12/15/2018 - 03/19/2019 Provide r: Monica Rashid MD Diagnosis: Low back pain Three times a day w/ 100 mg tid Gabapentin 100MG Oral Capsule 12/15/2018 - 03/19/2019 Provid er: Monica Rashid MD Diagnosis: Low back pain Take as directed 2 (200 MG) PO TID W/ 800 MG PO TID Gabapentin 100MG Oral Capsule, conventional 11/27/2018 - Provider: Monica Rashid MD Diagnosis: Low back pain Take as directed 2 (200 MG) PO TID W/ 800 MG PO TID Ondansetron 4MG Oral Tablet Disintegrating 11/27/2018 - 11/19 Provider: Monica Rashid MD Diagnosis: Nausea 1 PO TID PRN SUMAtriptan Succinate 50MG Oral Tablet 11/27/2018 - 12/15/19 19 Provider: Monica Rashid MD Diagnosis: Migraine w/o aura, n ot intractable, w/o status migrainosus 1 PO W/ MENSAH, REPEAT X 1 AFTER 2 HRS Percocet 10-325MG Oral Tablet 11/27/2018 - 12/15/2018 Provid er: Monica Rashid MD Diagnosis: Other chronic pain 1 every 4 - 6 hours as needed MDD: 6 TABS Omeprazole 20MG Oral Capsule Delayed Release 10/30/2018 - Provider: Monica Rashid MD Diagnosis: Nausea 1 Every morning SUMAtriptan Succinate 50MG Oral Tablet 10/30/2018 - 11/27/19 19 Provider: Monica Rashid MD Diagnosis: Migraine w/o aura, n ot intractable, w/o status migrainosus 1 PO W/ MENSAH, REPEAT X 1 AFTER 2 HRS Gabapentin 100MG Oral Capsule 10/22/2018 - 11/27/2018 Provid er: Monica Rashid MD Diagnosis: Low back pain Three times a day w/ 800 mg tid total daily dose 2700 mg qd Gabapentin 800MG Oral Tablet 10/22/2018 - 12/15/2018 Provide r: Monica Rashid MD Diagnosis: Low back pain Three times a day w/ 100 mg tid Percocet 10-325MG Oral Tablet 10/22/2018 - 11/27/2018 Provid er: Monica Rashid MD Diagnosis: Other chronic pain 1 every 4 - 6 hours as needed MDD: 6 TABS Percocet 10-325MG Oral Tablet 09/25/2018 - 10/22/2018 Provid er: Monica Rashid MD Diagnosis: Other chronic pain 1 every 4 - 6 hours as needed MDD: 6 TABS Percocet 10-325MG Oral Tablet 08/27/2018 - 09/25/2018 Provid er: Monica Rashid MD Diagnosis: Other chronic pain 1 every 4 - 6 hours as needed MDD: 6 TABS Chantix Continuing Month Jose Armando 1MG Oral Tablet 08/27/2018 - Provider: Monica Rashid MD Diagnosis: Nicotine dependence, unsp, w unsp nicotine-induced disorders Take as directed Chantix Starting Month Jose Armando 0.5 MG X 11 &1 MG X 42 Oral Tablet 08/27/2018 - 09/25/2018 Provider: Monica Rashid MD Diagnosis: Nicotine dependence, unsp, w unsp nicotine-induced disorders Take as directed Percocet 10-325MG Oral Tablet 07/31/2018 - 08/27/2018 Provid er: Monica Rashid MD Diagnosis: Other chronic pain 1 every 4 - 6 hours as needed MDD: 6 TABS Folic Acid 1MG Oral Tablet 07/31/2018 - 09/25/2018 Provider: Monica Rashid MD Diagnosis: Other folate deficie ncy anemias 1 tab po QD Gabapentin 800MG Oral Tablet 07/31/2018 - 10/22/2018 Provide r: Monica Rashid MD Diagnosis: Low back pain Three times a day w/ 100 mg tid Gabapentin 100MG Oral Capsule, conventional 07/31/2018 - 03/2018 Provider: Monica Rashid MD Diagnosis: Low back pain Three times a day w/ 800 mg tid total daily dose 2700 mg qd Percocet 10-325MG Oral Tablet 07/02/2018 - 07/31/2018 Provid er: Monica Rashid MD Diagnosis: Other chronic pain 1 every 4 - 6 hours as needed MDD: 6 TABS Lidocaine HCl 1% Injection Solution 05/29/2018 - 07/31/2018 Provider: Monica Rashid MD Diagnosis: Lateral epicondyliti s, right elbow Take as directed Kenalog 40MG/ML Injection Suspension 05/29/2018 - 07/31/2018 Provider: Monica Rashid MD Diagnosis: Lateral epicondyliti s, right elbow Take as directed Gabapentin 800MG Oral Tablet 05/29/2018 - 07/31/2018 Provide r: Monica Rashid MD Diagnosis: Low back pain Three times a day w/ 100 mg tid Gabapentin 100MG Oral Capsule 05/29/2018 - 07/31/2018 Provid er: Monica Rashid MD Diagnosis: Low back pain Three times a day w/ 800 mg tid total daily dose 2700 mg qd Percocet 10-325MG Oral Tablet 05/29/2018 - 07/02/2018 Provid er: Monica Rashid MD Diagnosis: Other chronic pain 1 every 4 - 6 hours as needed MDD: 6 TABS Ciprofloxacin HCl 250MG Oral Tablet 04/30/2018 - 05/29/2018 Provider: Monica Rashid MD Diagnosis: Cystitis, unspecifie d without hematuria 1 tab twice a day Percocet 10-325MG Oral Tablet 04/30/2018 - 05/29/2018 Provid er: Monica Rashid MD Diagnosis: Other chronic pain 1 every 4 - 6 hours as needed MDD: 6 TABS ProAir HFA 108 (90 Base)MCG/ACT Inhalation Aerosol Toshia ution 04/03/2018 - 07/31/2018 Provider: Monica Rashid MD Diagnosis: HCC-Chronic obstruct kate pulmonary disease, unspecified 2 puffs two times a day Gabapentin 800MG Oral Tablet 04/03/2018 - 05/29/2018 Provide r: Monica Rashid MD Diagnosis: Low back pain Three times a day Folic Acid 1MG Oral Tablet 04/03/2018 - 07/31/2018 Provider: Monica Rashid MD Diagnosis: Other folate deficie ncy anemias 1 tab po QD Advair HFA 230-21MCG/ACT Inhalation Aerosol 04/03/2018 - Provider: Monica Rashid MD Diagnosis: Other emphysema 2 puffs two times a day Percocet 10-325MG Oral Tablet 04/03/2018 - 04/30/2018 Provid er: Monica Rashid MD Diagnosis: Other chronic pain 1 every 4 - 6 hours as needed MDD: 6 TABS Gabapentin 800MG Oral Tablet 04/02/2018 - 04/03/2018 Provide r: Monica Rashid MD Diagnosis: Low back pain Three times a day Folic Acid 1MG Oral Tablet 04/02/2018 - 04/03/2018 Provider: Monica Rashid MD Diagnosis: Other folate deficie ncy anemias 1 tab po QD Percocet 10-325MG Oral Tablet 04/02/2018 - 04/03/2018 Provid er: Monica Rashid MD Diagnosis: Other chronic pain 1 every 4 - 6 hours as needed MDD: 6 TABS Percocet 10-325MG Oral Tablet 03/03/2018 - 04/02/2018 Provid er: Monica Rashid MD Diagnosis: Other chronic pain 1 every 4 - 6 hours as needed MDD: 6 TABS Breo Ellipta 200-25MCG/INH Inhalation Aerosol Powder B reath Activated 02/11/2018 - 04/03/2018 Provider: Kellie Pabon Diagnosis: Other asthma 1 every day, samples given as med is not covered by insuranc e Percocet 10-325MG Oral Tablet 02/03/2018 - 03/03/2018 Provid er: Kellie Olson GALLEY BOY Diagnosis: Other chronic pain 1 every 4 - 6 hours as needed MDD: 6 TABS Breo Ellipta 200-25MCG/INH Inhalation Aerosol Powder B reath Activated 02/03/2018 - 02/03/2018 Provider: Kellie Olson GALLEY BOY Diagnosis: Other asthma 1 every day ProAir HFA 108 (90 Base)MCG/ACT Inhalation Aerosol Toshia ution 01/02/2018 - 04/03/2018 Provider: Monica Rashid MD Diagnosis: HCC-Chronic obstruct kate pulmonary disease, unspecified 2 puffs two times a day Folic Acid 1MG Oral Tablet 01/02/2018 - 04/02/2018 Provider: Monica Rashid MD Diagnosis: Other folate deficie ncy anemias 1 tab po QD Breo Ellipta 200-25MCG/INH Inhalation Aerosol Powder B reath Activated 01/02/2018 - 02/03/2018 Provider: Monica Rashid MD Diagnosis: Other asthma 1 puff po qd Gabapentin 800MG Oral Tablet 01/02/2018 - 04/02/2018 Provide r: Monica Rashid MD Diagnosis: Low back pain Three times a day FROM 400 MG PO TID Percocet 10-325MG Oral Tablet 01/02/2018 - 02/03/2018 Provid er: Monica Rashid MD Diagnosis: Other chronic pain 1 every 4 - 6 hours as needed MDD: 6 TABS Cipro 250MG Oral Tablet 12/02/2017 - 12/10/2017 Provider: Monica Rashid MD Diagnosis: Acute cystitis with hematuria 1 tab twice a day Percocet 10-325MG Oral Tablet 12/02/2017 - 01/02/2018 Provid er: Monica Rashid MD Diagnosis: Other chronic pain 1 every 4 - 6 hours as needed MDD: 6 TABS Percocet 10-325MG Oral Tablet 11/04/2017 - 12/02/2017 Provid er: Kellie Olson GALLEY BOY Diagnosis: Other chronic pain 1 every 4 - 6 hours as needed MDD: 6 TABS Advair Diskus 250-50MCG/DOSE Inhalation Aerosol Powder Breath Activated 10/07/2017 - 01/02/2018 Provider: Kellie Olson GALLEY BOY Diagnosis: Other emphysema 1 PUFF PO BID Folic Acid 1MG Oral Tablet 10/07/2017 - 01/02/2018 Provider: Kellie Olson GALLEY BOY Diagnosis: Other folate deficie ncy anemias 1 tab po QD Gabapentin 800MG Oral Tablet 10/07/2017 - 01/02/2018 Provide r: Kellie Olson GALLEY BOY Diagnosis: Low back pain Three times a day FROM 400 MG PO TID Percocet 10-325MG Oral Tablet 10/07/2017 - 11/04/2017 Provid er: Kellie Olson GALLEY BOY Diagnosis: Other chronic pain 1 every 4 - 6 hours as needed MDD: 6 TABS Percocet 10-325MG Oral Tablet 09/05/2017 - 11/04/2017 Provid er: Monica Rashid MD Diagnosis: Other chronic pain 1 every 4 - 6 hours as needed MDD: 6 TABS Percocet 10-325MG Oral Tablet 2017 - 09/05/2017 Provid er: Kellie Pabon Diagnosis: Other chronic pain 1 every 4 - 6 hours as needed MDD: 6 TABS Percocet 10-325MG Oral Tablet 07/11/2017 - 2017 Provid er: Monica Rashid MD Diagnosis: Other chronic pain 1 every 4 - 6 hours as needed MDD: 6 TABS Gabapentin 800MG Oral Tablet 07/11/2017 - 10/07/2017 Provide r: Monica Rashid MD Diagnosis: Low back pain Three times a day FROM 400 MG PO TID Folic Acid 1MG Oral Tablet 07/11/2017 - 10/07/2017 Provider: Monica Rashid MD Diagnosis: Other folate deficie ncy anemias 1 tab po QD Advair Diskus 250-50MCG/DOSE Inhalation Aerosol Powder Breath Activated 07/11/2017 - 10/07/2017 Provider: Monica Rashid MD Diagnosis: Other emphysema 1 PUFF PO BID Percocet 10-325MG Oral Tablet 06/12/2017 - 07/11/2017 Provid er: Monica Rashid MD Diagnosis: Other chronic pain 1 every 4 - 6 hours as needed MDD: 6 TABS Gabapentin 400MG Oral Capsule, conventional 06/12/2017 - Provider: Monica Rashid MD Diagnosis: Foot drop, left foot Three times a day Percocet 10-325MG Oral Tablet 05/13/2017 - 06/12/2017 Provid er: Monica Rashid MD Diagnosis: Other chronic pain 1 every 4 - 6 hours as needed MDD: 6 TABS Gabapentin 800MG Oral Tablet 05/07/2017 - 07/11/2017 Provide r: Monica Rashid MD Diagnosis: Low back pain Three times a day FROM 400 MG PO TID Advair Diskus 250-50MCG/DOSE Inhalation Aerosol Powder Breath Activated 05/07/2017 - 07/11/2017 Provider: Monica Rashid MD Diagnosis: Other emphysema 1 PUFF PO BID Zofran 4MG Oral Tablet 05/07/2017 - 07/11/2017 Provider: Moinca Rashid MD Diagnosis: Nausea 4 mg po TID PRN for nauseaREVIEWED BUT NOT DISPENSED Gabapentin 400MG Oral Capsule 05/07/2017 - 06/12/2017 Provid er: Monica Rashid MD Diagnosis: Foot drop, left foot Three times a dayREVIEWED BUT NOT DISPENSED Percocet 10-325MG Oral Tablet 04/29/2017 - 05/07/2017 Provid er: Monica Rashid MD Diagnosis: Low back pain 1 every 4 - 6 hours as needed MDD: 6 TAB S ( ins. will only allow 7 day supply at a time) Folic Acid 1MG Oral Tablet 04/23/2017 - 07/11/2017 Provider: Monica Rashid MD Diagnosis: Other folate deficie ncy anemias 1 tab po QD Zofran 4MG Oral Tablet 04/22/2017 - 05/07/2017 Provider: Monica Rashid MD Diagnosis: Nausea 4 mg po TID PRN for nausea Zofran 4MG Oral Tablet 04/19/2017 - 04/22/2017 Provider: Monica Rashid MD Diagnosis: Nausea 4 mg po QID PRN for nausea Percocet 10-325MG Oral Tablet 04/16/2017 - 04/22/2017 Provid er: Monica Rashid MD Diagnosis: Low back pain 1 every 4 - 6 hours as needed MDD: 6 TAB S ( ins. will only allow 7 day supply at a time) Percocet 10-325MG Oral Tablet 04/08/2017 - 04/11/2017 Provid er: Kellie Vieira Danita GALLEY BOY Diagnosis: Low back pain 1 every 4 - 6 hours as needed MDD: 6 TAB S ( ins. will only allow 7 day supply at a time) Percocet 10-325MG Oral Tablet 04/08/2017 - 04/08/2017 Provid er: Kellie A Danita GALLEY BOY Diagnosis: Low back pain 1 every 4 - 6 hours as needed MDD: 6 TABS Gabapentin 400MG Oral Capsule 04/08/2017 - 05/07/2017 Provid er: Kellie A Danita GALLEY BOY Diagnosis: Foot drop, left foot Three times a day Lyrica 100MG Oral Capsule 04/03/2017 - 04/04/2017 Provider: Diagnosis: TID Lyrica 100MG Oral Capsule 04/03/2017 - 06/12/2017 Provider: Monica Rashid MD Diagnosis: Foot drop, left foot Three times a day ProAir HFA 108 (90 Base)MCG/ACT Inhalation Aerosol Toshia ution 04/03/2017 - 01/02/2018 Provider: Diagnosis: Advair Diskus 100-50MCG/DOSE Inhalation Aerosol Powder Breath Activated 04/03/2017 - 05/07/2017 Provider: Diagnosis: Percocet 10-325MG Oral Tablet 04/03/2017 - 04/08/2017 Provid er: Diagnosis: Medications Administered Includes: Administered Medications in patient's chartNo Administered Medications Recorded Vital Signs Includes: Vital Signs from 08/18/2020 through 08/18/2021 Vital Name 08/18/2021 08:10A 07/19/2021 10:54A 06/21/2021 01:42P 05/24/2021 01:38P 04/26/2021 01:05P Temp-Tympanic (F) 97.8 97.5 95.2 97.6 Height (in) 64 64 64 64 64 Weight (lb) 101 105 104 98 Body Mass Index (kg/m2) 17.3 18.0 17.9 1 6.8 Body Surface Area (m2) 1.46 1.49 1.48 1. 44 Oxygen Saturation (%) 99 99 98 99 Flow Rate (l/min) (None (Room Air)) (None (Ro om Air)) (None (Room Air)) FiO2 (%) 21 21 21 Blood Pressure Sitting L 124/66 102/64 118/62 BP Cuff Size Regular Regular Regular Regular Pulse Rate-Sitting (bpm) 75 76 75 90 Respiration Rate (breaths/min) 24 20 18 24 Blood Pressure Sitting R 114/70 Vital Name 03/27/2021 12:59P 02/21/2021 02:32P 01/24/2021 01:17P 12/29/2020 11:09A 11/28/2020 10:30A Temp-Tympanic (F) 97.6 97.6 98.2 Height (in) 64 64 64 64 64 Weight (lb) 98 97 104 98 101 Body Mass Index (kg/m2) 16.8 16.6 17.9 16.8 1 7.3 Body Surface Area (m2) 1.44 1.44 1.48 1.44 1. 46 Oxygen Saturation (%) 99 95 99 99 98 Flow Rate (l/min) (None (Room Air)) (None (Ro om Air)) (None (Room Air)) FiO2 (%) 21 21 21 Blood Pressure Sitting L 100/60 118/68 102/62 110/70 BP Cuff Size Regular Regular Regular Regular Pulse Rate-Sitting (bpm) 76 80 80 81 90 Respiration Rate (breaths/min) 20 24 20 24 20 Blood Pressure Sitting R 120/68 Temp-Temporal 97.6 97.1 Vital Name 10/28/2020 10:02A 09/30/2020 09:40A 09/01/2020 10:51A Temp-Tympanic (F) 98.1 Height (in) 64 64 64 Weight (lb) 98 96 103 Body Mass Index (kg/m2) 16.8 16.5 17.7 Body Surface Area (m2) 1.44 1.43 1.48 Oxygen Saturation (%) 97 97 95 Flow Rate (l/min) (None (Room Air)) (None (Room Air)) FiO2 (%) 21 21 Blood Pressure Sitting L 100/58 BP Cuff Size Regular Pediatric Regular Pulse Rate-Sitting (bpm) 88 100 68 Respiration Rate (breaths/min) 20 20 20 Blood Pressure Sitting R 114/74 114/70 Temp-Temporal 96.8 97.1 Results Includes: Results from 08/18/2020 through 08/18/2021 GATS CULTURE (NEG STREP SCR) [facility] Ordered by Donna Diaz NP on 05/27/[address] [place] [address], [id number] Collected: 05/27/2021 Reported: 05/28/2021 06:18 tel :[phone] GATS CULTURE (NEG STREP SCR) See Note N (Normal) Note: FULL REPORT IN LAB NOTES (eCW and Medent).NEGATIVE FOR STREP PYOGENES (GROUP A) NOTES See Note None Note: Is patient on Antibiotics? N SOUR CE: THROAT Reviewed by Donna Diaz NP on 05/29/2021; All test results are final unless otherwise noted. Reported Physicians [facility] Ordered by Donna Diaz NP on 05/27/[address] [place] [address], [id number] Collected: 05/27/2021 Reported: 05/28/2021 06:18 tel :[phone] Reported Physicians See Note None Note: Reported Physicians:Ordering: Tesha Barajas [id number]: Anthony Ortega To: Anthony Ortega To: Monica Rashid Reviewed by Donna Diaz PRECISION FARMING COORDINATOR on 05/29/2021; All test results are final unless otherwise noted. CHI STREP A [facility] Ordered by Donna Diaz PRECISION FARMING COORDINATOR on 05/27/[address] [place] [address], [id number] Collected: 05/27/2021 Reported: 05/27/2021 12:08 tel :[phone] CHI STREP A NEGATIVE (NEGATIVE) N (Normal) Reviewed by Donna Diaz PRECISION FARMING COORDINATOR on 05/29/2021; All test results are final unless otherwise noted. Reported Physicians [facility] Ordered by Donna Diaz PRECISION FARMING COORDINATOR on 05/27/[address] [place] [address], [id number] Collected: 05/27/2021 Reported: 05/27/2021 12:08 tel :[phone] Reported Physicians See Note None Note: Reported Physicians:Ordering: Rajni Bales [id number] MDAttending: Anthony Ortega To: Anthony Ortega To: Monica Rashid Reviewed by Donna Diaz PRECISION FARMING COORDINATOR on 05/29/2021; All test results are final unless otherwise noted. MEDWATCH TOXASSURE SELECT 13 [facility] Ordered by Monica Rashid MD on 03/27/[address] [place] [address], [id number] Collected: 03/27/2021 Reported: 04/03/2021 06:26 tel :[phone] Summary Report (Summary) FINAL None Note: TOXASSURE SELECT 13 (MW) Test Result Flag UnitsDrug Present and Declared for Prescription Verification Oxycodone 84 EXPECTED ng/mg creat Oxymorphone 882 EXPECTED ng/mg creat Noroxycodone 739 EXPECTED ng/mg creat Noroxymorphone 250 EXPECTED ng/mg creat Sources of oxycodone are scheduled prescription medications. Oxymorphone, noroxycodone, and noroxymorphone are expected metabolites of oxycodone. Oxymorphone is also available as a scheduled prescription medication. Test Result Flag Units Ref Range Creatinine 105 mg/dL >=20 Declared Medications: The flagging and interpretation on this report are based on the following declared medications. Unexpected results may arise from inaccuracies in the declared medications. Note: The testing scope of this panel includes these medications: Oxycodone (Percocet) Note: The testing scope of this panel does not include following reported medications: Acetaminophen (Percocet) Fo r clinical consultation, please call . Responsible Observer: (rfl) PDF . None Note: Responsible Observer: (rfl) Reviewed by Monica Rashid MD on 2020; All test results are final unless otherwise noted. Reported Physicians [facility] Ordered by Monica Rashid MD on 03/27/[address] [place] [address], [id number] Collected: 03/27/2021 Reported: 04/03/2021 06:26 tel :[phone] Reported Physicians See Note None Note: Reported Physicians:Ordering: Monica Dominguez AAttending: MONICA RASHIDReferring: MONICA RASHIDConsulting: FLOR RASHIDCELYNCopy To: Monica Rashid Reviewed by Monica Rashid MD on 2020; All test results are final unless otherwise noted. CHI COVID ANTIGEN [facility] Ordered by Donna Diaz NP on 03/14/[address] [place] [address], [id number] Collected: 03/14/2021 Reported: 03/14/2021 22:14 tel :[phone] CHI COVID ANTIGEN NEGATIVE (NEGATIVE) N (Normal) Note: The Chi SARS Antigen KAMRAN does no t differentiate between SARS-CoV and SARS-CoV-2. Negative results do not rule out COVID-19 and should not be used as the sole basis for treatment. Negative results should be considered in the context of a patient's recent exposure, history and the presence of clinical signs and symptoms consistent with COVID-19. Reviewed by Donna Diaz NP on 03/19/2021; All test results are final unless otherwise noted. Reported Physicians [facility] Ordered by Donna Diaz NP on 03/14/[address] [place] [address], [address] Collected: 03/14/2021 Reported: 03/14/2021 22:14 tel :[phone] Reported Physicians See Note None Note: Reported Physicians:Ordering: JACQUIE CANNON [phone], ATUL Kelsey,Attending: Alfonzo RIVERA To: Alfonzo RIVERA To: Monica Rashid Reviewed by Donna Diaz NP on 03/19/2021; All test results are final unless otherwise noted. [facility] on 03/14/[address] [place] [address], [id number] Collected: 03/14/2021 Reported: 03/16/2021 12:30 tel :[phone] CORONAVIRUS 2019 NASOPHARYGEAL See Note None Note: ASSAY INFORMATION: Real Time RT-PC RNOTE: The COVID-19 assay has been cleared by the U.S. Food and DrugAdministration under the Emergency Use Authorization (EUA). [facility] and [facility] are designated as high complexity laboratories by theClinical Laboratory Improvement Amendments of 1988(CLIA) and are qualified toperform this test.Not Detected Reviewed by Donna Diaz NP on 03/19/2021; All test results are final unless otherwise noted. Reported Physicians [facility] Ordered by Donna Diaz NP on 03/14/[address] [place] [address], [facility] Collected: 03/14/2021 Reported: 03/16/2021 12:30 tel :[phone] Reported Physicians See Note None Note: Reported Physicians:Ordering: KASI SEO [id number]: Alfonzo RIVERA To: Alfonzo RIVERA To: Hemant DALTON To: Monica Rashid Reviewed by Donna Diaz NP on 03/19/2021; All test results are final unless otherwise noted. CBC WITH DIFFERENTIAL [facility] Ordered by Donna Diaz NP on 02/18/[address] [place] [address], [id number] Collected: 02/18/2021 Reported: 02/18/2021 16:05 tel :[phone] WHITE BLOOD COUNT 3.7 3/uL (4.0-10.0) L (Low) RED BLOOD COUNT 4.03 6/uL (4.00-5.40) N (Normal) HEMOGLOBIN 11.6 g/dl (12.0-15.5) L (Low) HEMATOCRIT 36.9 % (36.0-47.0) N (Normal) MEAN CORPUSCULAR VOLUME 91.6 fl (80.0-96.0) N (Normal) MEAN CORPUSCULAR HEMOGLOBIN 28.8 pg (27.0-33.0) N (Normal) MEAN CORPUSCULAR HGB CONC 31.4 g/dl (32.0-36.5) L (Low) RED CELL DISTRIBUTION WIDTH 13.9 % (11.5-14.5) N (Normal) PLATELET COUNT, AUTOMATED 177 3/uL (150-450) N (Normal) NEUTROPHILS % 49.7 % (36.0-66.0) N (Normal) LYMPH % 41.6 % (24.0-44.0) N (Normal) MONO % 6.3 % (2.0-8.0) N (Normal) EOS % 1.9 % (0.0-3.0) N (Normal) BASO % 0.5 % (0.0-1.0) N (Normal) IMMATURE GRANULOCYTE % 0.0 % (0-3.0) N (Normal) NUCLEATED RED BLOOD CELL % 0.0 % (0-0) N (Normal) NEUTROPHILS # 1.8 3/uL (1.5-8.5) N (Normal) LYMPH # 1.5 3/uL (1.5-5.0) N (Normal) MONO # 0.2 3/uL (0.0-0.8) N (Normal) EOS # 0.1 3/uL (0.0-0.5) N (Normal) BASO # 0.0 3/uL (0.0-0.2) N (Normal) Reviewed by Donna Diaz NP on 02/22/2021; All test results are final unless otherwise noted. Reported Physicians [facility] Ordered by Donna Diaz NP on 02/18/[address] [place] [address], [id number] Collected: 02/18/2021 Reported: 02/18/2021 16:05 tel : Reported Physicians See Note None Note: Reported Physicians:Ordering: Barbie Sarkar [id number], Negra Monaeending: Alfonso Mckeon To: Alfonso Mckeon To: Monica Rashid Reviewed by Donna Diaz NP on 02/22/2021; All test results are final unless otherwise noted. BASIC METABOLIC PROFILE [facility] Ordered by Donna Diaz NP on 02/18/[address] [place] [address], [id number] Collected: 02/18/2021 Reported: 02/18/2021 16:36 tel :[phone] GLUCOSE, FASTING 85 MG/DL (70-100) N (Normal) BLOOD UREA NITROGEN 17 MG/DL (7-18) N (Normal) CREATININE FOR GFR 0.71 MG/DL (0.55-1.30) N (Normal) GLOMERULAR FILTRATION RATE > 60.0 (>58) N (Normal) Note: Units are mL/min/1.73 m2 Chroni c Kidney Disease Staging per NKF: Stage I & II GFR >=60 Normal to Mildly Decreased Stage III GFR 30- 59 Moderately Decreased Stage IV GFR 15-29 Severely Decreased Stage V GFR <15 Very Little GFR Left ESRD GFR <15 on MESH WORKER SODIUM LEVEL 140 MEQ/L (136-145) N (Normal) POTASSIUM SERUM 4.1 MEQ/L (3.5-5.1) N (Normal) CHLORIDE LEVEL 106 MEQ/L (98-107) N (Normal) CARBON DIOXIDE LEVEL 31 MEQ/L (21-32) N (Normal) ANION GAP 3 MEQ/L (8-16) L (Low) CALCIUM LEVEL 9.2 MG/DL (8.5-10.1) N (Normal) Reviewed by Donna Diaz NP on 02/22/2021; All test results are final unless otherwise noted. Reported Physicians [facility] Ordered by Donna Diaz NP on 02/18/[address] [place] [address], [id number] Collected: 02/18/2021 Reported: 02/18/2021 16:36 tel :[phone] Reported Physicians See Note None Note: Reported Physicians:Ordering: Barbie Sarkar [phone] Deanending: Alfonso Mckeon To: Alfonso Mckeon To: Monica Rashid Reviewed by Donna Diaz NP on 02/22/2021; All test results are final unless otherwise noted. LIPASE [facility] Ordered by Donna Diaz NP on 02/18/[address] [place] [address], [address] Collected: 02/18/2021 Reported: 02/18/2021 16:36 tel :[phone] LIPASE 74 U/L (73-393) N (Normal) Reviewed by Donna Diaz NP on 02/23/2021; All test results are final unless otherwise noted. Reported Physicians [facility] Ordered by Donna Diaz NP on 02/18/[address] [place] [address], [facility] Collected: 02/18/2021 Reported: 02/18/2021 16:36 tel :[phone] Reported Physicians See Note None Note: Reported Physicians:Ordering: Barbie Sarkar [phone]: Alfonso Mckeon To: Alfonso Mckeon To: Monica Rashid Reviewed by Donna Diaz NP on 02/23/2021; All test results are final unless otherwise noted. LIVER PROFILE [facility] Ordered by Donna Diaz NP on 02/18/[address] [place] [address], [id number] Collected: 02/18/2021 Reported: 02/18/2021 16:36 tel :[phone] AST/SGOT 14 U/L (7-37) N (Normal) ALT/SGPT 17 U/L (12-78) N (Normal) ALKALINE PHOSPHATASE 74 U/L (45-117) N (Normal) BILIRUBIN,TOTAL 0.4 MG/DL (0.2-1.0) N (Normal) BILIRUBIN,DIRECT 0.1 MG/DL (0.0-0.2) N (Normal) TOTAL PROTEIN 7.4 GM/DL (6.4-8.2) N (Normal) ALBUMIN 4.5 GM/DL (3.2-5.2) N (Normal) ALBUMIN/GLOBULIN RATIO 1.6 (1.2-2.2) N (Normal) Reviewed by Donna Diaz NP on 02/23/2021; All test results are final unless otherwise noted. Reported Physicians [facility] Ordered by Donna Diaz PRECISION FARMING COORDINATOR on 02/18/[address] [place] [address], [facility] Collected: 02/18/2021 Reported: 02/18/2021 16:36 tel :[phone] Reported Physicians See Note None Note: Reported Physicians:Ordering: Barbie Sarkar [id number]: Alfonso Mckeon To: Alfonso Mckeon To: Monica Rashid Reviewed by Donna Diaz PRECISION FARMING COORDINATOR on 02/23/2021; All test results are final unless otherwise noted. HCG SERUM QUALITATIVE [facility] Ordered by Donna Diaz NP on 02/18/[address] [place] [address], [id number] Collected: 02/18/2021 Reported: 02/18/2021 16:36 tel :[phone] HCG, SERUM QUALITATIVE NEGATIVE (NEGATIVE) N (Normal) Reviewed by Donna Diaz NP on 02/23/2021; All test results are final unless otherwise noted. Reported Physicians [facility] Ordered by Donna Diaz NP on 02/18/[address] [place] [address], [id number] Collected: 02/18/2021 Reported: 02/18/2021 16:36 tel :[phone] Reported Physicians See Note None Note: Reported Physicians:Ordering: Barbie Sarkar [id number] MDAttending: Alfonso Mckeon To: Alfonso Mckeon To: Monica Rashid Reviewed by Donna Diaz PRECISION FARMING COORDINATOR on 02/23/2021; All test results are final unless otherwise noted. CORONAVIRUS 2019 [facility] r Ordered by Monica Rashid MD on 11/01/[address] [place] [address], [id number] Collected: 11/01/2020 Reported: 11/04/2020 11:16 tel : CORONAVIRUS 2019 NASOPHARYGEAL See Note None Note: This nucleic acid amplification te st was developed and itsperformance characteristics determined by [facility]. Nucleic acid amplification tests include PCRand TMA. This test has not been FDA cleared or approved.This test has been authorized by FDA under an Emergency UseAuthorization (EUA). This test is only authorized forthe duration of time the declaration that circumstancesexist justifying the authorization of the emergency use ofin vitro diagnostic tests for detection of SARS-CoV-2 virusand/or diagnosis of COVID-19 infection under [id number](b)(1) of the Act, 21 U.S.C. 360bbb-3(b) (1), unless theauthorization is terminated or revoked sooner.When diagnostic testing is negative, the possibility of afalse negative result should be considered in the contextof a patient's recent exposures and the presence ofclinical signs and symptoms consistent with COVID-19. Anindividual without symptoms of COVID-19 and who is notshedding SARS-CoV-2 virus would expect to have a negative(not detec antonia) result in this assay.Performed at: [id number], [place], [place] [id number] Director: Denise Giraldo PhD, Phone: [phone] Detected Reviewed by Monica Rashid MD on 2019; All test results are final unless otherwise noted. Reported Physicians [facility] Ordered by Monica Rashid MD on 11/01/[address] [place] [address], [id number] Collected: 11/01/2020 Reported: 11/04/2020 11:16 tel :[phone] Reported Physicians See Note None Note: Reported Physicians:Ordering: GEOVANI REYES [id number]: JESSIE THIBODEAUXUECopmichelle To: DAMIR THIBODEAUXCopmichelle To: Loraine RASMUSSEN To: Monica Rashid Reviewed by Monica Rashid MD on 2019; All test results are final unless otherwise noted. D-DIMER [facility] Ordered by Donna Diaz PRECISION FARMING COORDINATOR on 10/28/[address] [place] [address], [id number] Collected: 10/28/2020 Reported: 10/28/2020 12:08 tel :[phone] D-DIMER QUANT <0.27 ug/mL (0.27 - 0.50) None Note: Responsible Observer: (SJR) Reviewed by Donna Diaz PRECISION FARMING COORDINATOR on 11/01/2020; All test results are final unless otherwise noted. Reported Physicians [facility] Ordered by Donna Diaz PRECISION FARMING COORDINATOR on 10/28/[address] [place] [address], [address] Collected: 10/28/2020 Reported: 10/28/2020 12:08 tel :[phone] Reported Physicians See Note None Note: Reported Physicians:Ordering: SALAZAR , DONNAAttending: JOE, ZACICAConsulting: MONICA RASHIDCopmichelle To: Monica Rashid Reviewed by Donna Diaz PRECISION FARMING COORDINATOR on 11/01/2020; All test results are final unless otherwise noted. TROPONIN T [facility] Ordered by Donna Diaz PRECISION FARMING COORDINATOR on 10/28/[address] [place] [address], [id number] Collected: 10/28/2020 Reported: 10/28/2020 12:25 tel :[phone] TROPONIN T <0.01 NG/ML (0.00 - 0.10) None Note: TROPONIN T0.1 ng/ml Recommended as the clinical threshold value forTroponin T.Responsible Observer: (AISHA) Reviewed by Donna Diaz PRECISION FARMING COORDINATOR on 11/01/2020; All test results are final unless otherwise noted. Reported Physicians [facility] Ordered by Donna Diaz PRECISION FARMING COORDINATOR on 10/28/[address] [place] [address], [address] Collected: 10/28/2020 Reported: 10/28/2020 12:25 tel :[phone] Reported Physicians See Note None Note: Reported Physicians:Ordering: SALAZAR , JAMAICAAttending: JOE, JAMAICAConsulting: MONICA RASHIDCopy To: Monica Rashid Reviewed by Donna Diaz PRECISION FARMING COORDINATOR on 11/01/2020; All test results are final unless otherwise noted. PRO-BNP [facility] Ordered by Donna Diaz PRECISION FARMING COORDINATOR on 10/28/[address] [place] [address], [address] Collected: 10/28/2020 Reported: 10/28/2020 12:34 tel :[phone] BNP 133 PG/ML (0 - 125) H (High) Note: Responsible Observer: (AISHA) Reviewed by Donna Diaz PRECISION FARMING COORDINATOR on 11/01/2020; All test results are final unless otherwise noted. Reported Physicians [facility] Ordered by Donna Diaz PRECISION FARMING COORDINATOR on 10/28/[address] [place] [address], [address] Collected: 10/28/2020 Reported: 10/28/2020 12:34 tel :[phone] Reported Physicians See Note None Note: Reported Physicians:Ordering: DONNA TOSCANOAttending: DONNA DIAZConsulting: MONICA RASHIDCopmichelle To: Monica Rashid Reviewed by Donna Diaz PRECISION FARMING COORDINATOR on 11/01/2020; All test results are final unless otherwise noted. History of Present Illness History of Present Illness not supported for this document typeNo History of Present Illness Recorded Social History Description Last Updated Social history unchanged 08/18/2021 ~QUIT WORKING MARCH 2021 "SO I COULD GET MY HO USE STRAIGHTENED" 04/26/2021 Caffeine use 04/26/2021 Current smoker VAPING 1 VAPE STICK 3300 POPS X 3 WEEK S 04/26/2021 Daily cola consumption 2 L BOTTLE QD 04/26/2021 No chocolate consumption 04/26/2021 No coffee consumption 04/26/2021 No tea consumption 04/26/2021 Not using alcohol 04/26/2021 Not using drugs 04/26/2021 Poor exercise habits 04/26/2021 Current every day smoker 05/02/2020 Not wishing to stop smoking 04/01/2020 Life circumstance event HAS 1 BOYFRIEND, MONOGAMOUS 0 04/01/2020 Unsuccessful attempt(s) to stop smoking 03/02/2020 Reason for smoking not specified DECLIN ED PATCH D/T ITCH. DECLINED GUM "I SWALLOW GUM". WELBUTRIN INEFFECTIVE 02/10/2019 No hard liquor consumption NO WINE 12/15/2018 Physical disability but able to perform usual physical activities for age 0112/15/2018 A social drinker 01/02/2018 Not using cocaine 12/02/2017 Not using marijuana did drugs a long ti me ago "everything but crystal meth, coke" 12/02/2017 Reason for smoking: stress 12/02/2017 Exercising regularly 07/08/[address] than D/T SUSPENSION. TOO MAY SPE EDING TICKETS 07/08/2017 No physical disability 07/08/2017 Smoking Status Unknown Procedures and Surgical History Includes: Procedures from 08/18/2020 through 08/18/2021No Procedures For Specified Dates. No Surgical History Recorded Medical History Includes: Medical History in patient's chart Description Last Updated [facility] 09/29/19 10/19/2019 No history of coronary artery disease 05/26/2019 No history of essential hypertension 05/26/2019 No history of HIV infection 05/26/2019 No history of hyperlipidemia 05/26/2019 No history of type 2 diabetes mellitus 05/26/2019 A history of cancer L LEG CA REMOVED FIBULA 03/18 Family History Includes: Family History in patient's chart Description Last Updated FATHER AT AGE OF 53YRS DUE TO GASTROINTESTINAL HEMORRHAGE. WAS ALCOHOLIC ~MOTHER LATE 50'S HEART PROBLEMS, ESTRANGED 10/13/2020 Review of Systems Review of Systems not supported for this document typeNo Review of Systems Recorded Mental Status Mental Status not supported for this document typeNo Mental Status Recorded Functional Status Functional Status not supported for this document typeNo Functional Status Recorded Physical Exam Physical Exam not supported for this document typeNo Physical Exam Recorded Immunizations Includes: Immunizations in patient's chart Vaccine Dose # Date Site Reaction(s) Status Source COVID-19 ISACC 1 02/28/2021 Complete (Reported) P atient Influenza,NOS 1 08/27/2018 Right Arm Complete (Admin istered) [facility] Note: manufactured by [employer] usvaccination information sheet given Influenza,NOS 2 09/26/2019 Complete (Reported) Pat ient Influenza,NOS 3 03/27/2021 Complete (Refus ed - Patient objection) [facility] PCV (Pneumovax 23) ages 2+ 1 09/05/2017 Complete (Refused - Patient objection) [facility] Td 1 09/05/2017 Complete (Refused - Patient objection) [facility] Allergies Includes: Active, inactive, and resolved Allergies Substance Type Reaction Onset Date - Time Resolved Date - Ti me Status Topamax Allergy 04/03/2017 - 12:00AM Acti ve Keflex Allergy Skin Rashes, Hives 04/03/2017 - 12:00AM Active Dilaudid Allergy 04/03/2017 - 12:00AM Acti ve Amitriptyline HCl Allergy Increased BP and Pulse 04/03/2017 - 12:0 0AM Active Encounters Includes: Encounters from 08/18/2020 through 08/18/2021 Encounter Provider Location Date Check-In Time Check-Out Time D iagnosis STANDARD OV [place] Ameena Diaz [facility] C 08/18/2021 8:07AM 07/19/2021 11:59PM Migraine Headache, Chronic P ain [facility] 07/19/2021 10:36AM 11:16AM Gerd, Chronic Pain [facility] 06/21/2021 1:35PM 1:59PM Chronic Pain, Nausea [facility] [place] [facility] 05/24/2021 1:29PM 2:02PM Chronic Pain, Migraine Heada brian STANDARD OV Monica Rashid MD [facility] 021 1:04PM 1:30PM Chronic Pain, Nausea, Acquired Deformity - Foot Drop WRITE-IN (SAME DAY) Monica Rashid MD Family Medicine [facility] 03/27/2021 12:55PM 1:34PM Constipation, Classi c Migraine W/ Aura W/ Intractable Migraine with Status Migrainosus, Nicotine Dependence Uncomplicated, Chronic Pain WRITE-IN (SAME DAY) Monica Rashid MD Family Medicine [facility] 02/21/2021 2:30PM 3:21PM Common Migraine With out Aura Without Intractable Migraine, Nausea, Anemia Normochromic, Normocytic, Chronic Pain, Vaping Related Disorder EXTENDED VISIT [place] Mariae Joe PRECISION FARMING COORDINATOR [facility] 01/24/2021 1:05PM 1:40PM Chronic Pain STANDARD OV Donnalin Lindquist Joe PRECISION FARMING COORDINATOR Family Medicine [facility], C 12/29/2020 11:09AM 11:42AM Migraine Headache, Chronic P ain EXTENDED VISIT Donna Denitajoo Joe WARNER [facility] Medicine [facility], 11/28/2020 10:28AM 11:07AM Psychogenic Formicat ion, Chronic Pain STANDARD OV [place] Ameena Joe PRECISION FARMING COORDINATOR Family Medicine [facility], C 10/28/2020 9:52AM 10:32AM Atypical Chest Pain, Migrain e Headache, Chronic Pain ANNUAL PHYSICAL EXAM [place] Ameena Diaz NP Family Medicine [facility], 09/30/2020 9:38AM 10:37AM Routine History & Ph ysical Adult Without Abnormal Findings, Atypical Chest Pain EXTENDED VISIT [place] Ameena Joe WARNER Family Medicine [facility], 09/01/2020 10:50AM 11:42AM Chronic Pain Insurance Includes: Active Insurance Policies Plan Name Member ID Group # Subscriber Relationship Effective Da damaris 1 - [employer] [id number] Gretchen Deleon ndekiara Advance Directives Includes: Current Advance DirectivesNo Advance Directives Recorded Health Concerns Includes: Active Health ConcernsNo Active Health Concerns Recorded Goals Includes: Active Goals refer to dr poe for foot concerns Added 07/11/2017 by Provider Interventions Includes: Interventions for active GoalsNo Interventions Recorded Evaluations & Outcomes Includes: Evaluations & Outcomes for active GoalsNo Outcomes Recorded
--- OUTSIDE RECORDS SUMMARY | 2021-09-03 14:53 | CCD ---
Author Author [facility] Organization [facility] Address [address] [place] [address] Phone Care Team Providers Care Mix Mill Tender Name Role Phone Rachid WILLS, Monica Vieira Unavailable [phone] Pako WARNER, Donna Lindquist Unavailable [phone] [...] Lower Back Pain 04/03/2017 - 12:00AM Monica Kelsye Active Note: Unchanged Numbness of the Limbs [...] abdominal pa in 10/10/17 Kellie A Danita [employer] CT Scan Abdomen CT Without Contrast Unspecified abdominal pain 10/10/17 Kellie A Danita [employer] CT Scan Pelvis CT Scan With Contrast Unspecified abdominal agus n 10/10/17 Kellie A Danita [employer] CT Scan Pelvis CT Scan Without Contrast Unspecified abdominal pain 10/10/17 Kellie A Danita [employer] *Labs (Manual) UA/UCS Unspecified abdominal pain 10/10/17 Kellie A Danita [employer] *Labs (Manual) *STAT Unspecified abdominal pain 10/10/17 Kellie A Danita [employer] *Labs (Manual) CBC Unspecified abdominal pain 10/10/17 Kellie A Danita [employer] *Labs (Manual) CMP Unspecified abdominal pain 10/10/17 Kellie A Danita [employer] *Labs (Manual) CBC Other fatigue 01/16/18 Monica [...] DRUG SCREEN (BLOOD) Other chronic pain 04/28/19 Monica Rashid MD *Labs (Manual) DRUG SCREEN (URINE) [...] specified abnormal uterine and vaginal bleeding 06/09/19 Moniac Rashid MD *Labs (Manual) PTT Other specified [...] Acute gastritis without bleeding Kellie A Danita [employer] *Labs (Manual) CBC Acute gastritis without bleeding Kellie A Danita [employer] *Labs (Manual) CMP Acute gastritis without bleeding Kellie A Danita [employer] *Labs (Manual) *RANDOM Hypokalemia 07/09/19 Kellie A Danita F [employer] *Labs (Manual) CMP Hypokalemia 07/09/19 Kellie A Danita F [employer] PLAYER *Labs (Manual) BMP Hypokalemia 08/06/19 Monica orr MD *Labs (Manual) SERUM ALDOSTERONE Hypokalemia 08/06/19 Monica Rashid MD *Labs (Manual) SERUM CORTISOL Hypokalemia 08/06/19 Monica cline MD X-RAY Upper GI with barium swallow (32011) Gas tritis, unspecified, without bleeding 08/06/19 Monica [...] *Labs (Manual) *FASTING Chronic pain syndrome 09/15/20 Franklin Diaz [employer] *Labs (Manual) CBC Chronic pain syndrome 09/15/20 Franklin Diaz [employer] *Labs (Manual) CMP Chronic pain syndrome 09/15/20 Franklin Diaz [employer] *Labs (Manual) LIPID Chronic pain syndrome 09/15/20 Franklin Diaz [employer] X-RAY Mammography- Ultrasound If Indicated Enc ntr screen mammogram for malignant neoplasm of breast 10/14/20 Donna Diaz [employer] *Labs (Manual) D-dimer Chest pain, unspecified 11/11/20 Sim Diaz [employer] *Labs (Manual) proBNP Chest pain, unspecified 11/11/20 Sim Diaz [employer] *Labs (Manual) TROPONIN Chest pain, unspecified 11/11/20 Sim Diaz [employer]ER *Labs (Manual) *RANDOM Chronic pain syndrome 04/10/21 Leopoldo Rashid MD *Labs (Manual) UA/UCS Chronic pain syndrome 04/10/21 Leopoldo Rashid MD *Labs (Manual) *FASTING Encounter for screening for lipoid diso rders 08/02/21 Donna Diaz [employer] *Labs (Manual) LIPID Encounter for screening for lipoid diso rders 08/02/21 Donna Diaz [employer]ER *Labs (Manual) CBC Encounter for screening for nutritional disorder 08/02/21 Donna Diaz [employer] *Labs (Manual) CMP Encounter for screening for nutritional disorder 08/02/21 Donna Diaz [employer] PLAYER [facility] Future Appointments Date Time Location Provider ANNUAL PHYSICAL EXAM 08/18/2021 8:15AM [facility] [employer] ANNUAL PHYSICAL EXAM 10/03/2021 1:00PM [facility] [employer] Findings Encounter Date PDMP CONSULTED -- PERCOCET REFILLED L AST TOOK PERCOCET 07/19 CBC, CMP, LIPIDS FFUP 4W APE W/O PAP STANDARD OV with Donna Diaz NP 07/19/2021 PDMP CONSULTED -- PERCOCET REFILLED FFUP 4W MED CHK STANDARD OV with Donna Diaz [employer] 06/21/2021 PDMP CONSULTED -- PERCOCET REFILLED FFUP 4W MED CHK STANDARD OV with Donna Diaz [employer]ER 05/24/2021 Ordered follow-up visit 1 MO WRITE-IN (SAME DAY) with Danielle Rashid MD 03/27/2021 Ordered follow-up visit 1 MO WRITE-IN (SAME DAY) with Danielle Rashid MD 02/21/2021 PDMP CONSULTED -- PERCOCET REFILLED FFUP 4W MED CHK EXTENDED VISIT with Donna Diaz [employer]ER 01/24/2021 PDMP CONSULTED -- PERCOCET REFILLED FFUP 4W MED CHK STANDARD OV with Donna Diaz [employer]ESSIONAL [employer]ER PLAYER 12/29/2020 NEUROLOGY REFERRAL -- PT WONDERING IF SHE HAS ?ARACHNOIDITIS PDMP CONSULTED -- PERCOCET REFILLED FFUP 4W MED CHK EXTENDED VISIT with Donna Bran laura [employer]ESSIONAL [employer]ER 11/28/2020 PDMP CONSULTED -- PERCOCET REFILLED FFUP 4W MED CHK STANDARD OV with Donna Diaz [employer]ESSIONAL [employer] PLAYER 10/28/2020 PDMP CONSULTED -- PERCOCETREFILLED FFUP 4W MED CHK ANNUAL PHYSICAL EXAM with Donna Diaz [employer]ESSIONAL [employer]ER PLAYER 09/30/2020 CBC, CMP, LIPIDS FFUP IN 4W FOR APE, LAB REVIEW, ME D CHECK EXTENDED VISIT with Donna Diaz ALANA 09/01/2020 PDMP CONUSLTED -- PERCOCET REFILLED FFUP IN 4W MED CHECK STANDARD OV with Donna Diaz [employer]ESSIONAL [employer] PLAYER 08/02/2020 Ordered follow-up visit STANDARD OV with [...] Chronic pain STANDARD OV with Donna Lindquist [place] N P 07/19/2021 GERD STANDARD OV with Donna Lindquist [place] N P 07/19/2021 Chronic pain STANDARD OV with Wauseonlin Bargerjoo Pako N P 06/21/2021 Nausea STANDARD OV with Donna Lindquist [place] N P 06/21/2021 Chronic pain STANDARD OV with Donna Lindquist [place] N P 05/24/2021 Migraine headache STANDARD OV with Donna Diaz N P 05/24/2021 Chronic pain STANDARD OV with [...] pain EXTENDED VISIT with Donna sanchez NP 11/28/2020 Psychogenic formication EXTENDED VISIT with Donna valles NP 11/28/2020 Atypical chest pain STANDARD OV with Donna Talamantes P 10/28/2020 Chronic pain STANDARD OV with Donna Talamantes P 10/28/2020 Migraine headache STANDARD OV with Donna Talamantes P 10/28/2020 Atypical chest pain ANNUAL PHYSICAL EXAM with Donna Diaz NP 09/30/2020 Routine adult history and physical (18-64 yrs) without abnormal findings ANNUAL PHYSICAL EXAM with Donna Diaz [employer]ER 09/30/2020 Chronic pain EXTENDED VISIT with Donna Bran s [employer] PLAYER 09/01/2020 Chronic pain STANDARD OV with Donna [...] Left medial epicondylitis STANDARD OV with Monica Kelsey 05/30/2020 Noninfective leukorrhea STANDARD OV with Monica Rashid MD 05/30/2020 Chronic pain STANDARD OV with Monica Rashid MD 04/18 Common migraine without aura without int ractable migraine STILL HAS TO GROWTH MEDIA MIXER MUSHROOM AJOVY STANDARD OV with Monica Rashid MD 05/02/2020 Fatigue STANDARD OV with Monica Rashid MD 04/18 Vaginitis EXTENDED VISIT with Monica Rashid MD 0 04/04/2020 Chronic pain E-VISIT E/M with Monica Rashid MD 03/18 Common migraine without aura without intractable migra ine E-VISIT E/M with Monica Rashid MD 04/01/2020 Vaginitis E-VISIT E/M with Monica Rashdi MD 03/18 Nicotine dependence continuous *TOBACCO CESSATION* [...] int ractable migraine last mensah 4 days. mu has helped. had >20 mensah days a mo , with med 1/week STANDARD OV with Monica Rashid MD 08/21/2019 Left-sided sciatica STANDARD OV with Monica Rashid MD 02/2019 Nicotine related disorders STANDARD OV with Monica Rashid MD 08/21/2019 Right medial epicondylitis STANDARD OV with Monica Rashid MD 08/21/2019 Underweight STANDARD OV with Monica Rashid MD 02/2019 Acute cystitis TREATED AT [facility] [place]. TOOK 2 DAYS OF MEDS D/ T [...] obstructive pulmonary disease STANDARD OV with Kellie A Danita [employer] 06/24/2019 Chronic pain STANDARD OV with Kellie A Danita [employer] 019 Gastritis STANDARD OV with Kellie A Danita [employer] 019 Migraine headache STANDARD OV with Kellie A Danita [employer] 019 Nausea STANDARD OV with Kellie A Danita [employer] 019 Abnormal uterine bleeding STANDARD OV with [...] 12/15/2018 Chronic pain EXTENDED VISIT with Monica Rashid MD 0 11/27/2018 Headache syndromes EXTENDED VISIT [...] MD 07/31/2018 Chronic pain STANDARD OV with Moncia Rashid MD 07/19 Nicotine related disorders STANDARD [...] AGO, DID NOT REFILL D/T $ "IT'S 12 MY PAY CHECK" STANDARD OV with Monica [...] 03/03/2018 Chronic pain STANDARD OV with Kellie Olson [employer] 018 Assessment of dyspnea during exertion STANDARD [...] 12/02/2017 Backache STANDARD OV with Kellie Olson [employer] 017 Backache STANDARD OV with Kellie Olson [employer] 017 Working diagnosis of abdominal pain WRITE-IN (SAME DAY) with Kellie Pabon 09/26/2017 Abnormal vaginal bleeding STANDARD OV with Monica Kelsey 09/05/2017 Chronic obstructive pulmonary disease STANDARD OV with Danielle Rashid MD 09/05/2017 Chronic pain STANDARD OV with Monica Rashid MD 08/18 Left-sided sciatica STANDARD OV with Monica Rashid MD 08/18 Chronic pain STANDARD OV with Kellie Pabon 017 Closed [place] I fracture l cheek STANDARD OV with Monica Rashid MD 07/11/2017 Left-sided sciatica STANDARD OV with Monica Rashid MD 06/19 Nicotine related disorders STANDARD OV with Monica Rashid MD 07/11/2017 Maxillary fracture on left side EMERGENCY ROOM FOLLOW- UP with Monica Rashid MD 07/08/2017 Assessment of metatarsus adductus of the left foot was observed STANDARD OV with Monica Rashid MD 06/12/2017 Chronic pain STANDARD OV [...] as prescribed) Percocet 10-325 MG Oral Tablet 07/19/2021 - 08/18/2021 Provi danita: Donna Diaz [employer]ER Diagnosis: Chronic pain syndrom e one tab every 4-6 hours as needed , MDD #6 NexIUM 20 MG Oral Capsule Delayed Release 07/19/2021 - 09/17 Provider: Donna Diaz [employer]ER Diagnosis: Gastro-esophageal re flux disease without esophagitis (GERD) TAKE 1 TAB BY MOUTH TWICE A DAY Ondansetron 4 MG Oral Tablet Disintegrating 06/21/2021 - 12/2020 Provider: Donna Diaz [employer]ER Diagnosis: Nausea 1 PO TID PRN LAST USED 3 DAYS AGO Gabapentin 800 MG Oral Tablet 06/21/2021 - 09/19/2021 Provid er: Donna Diaz [employer] PLAYER Diagnosis: Low back pain three times a day with 100 mg TID Gabapentin 100 MG Oral Capsule 06/21/2021 - 09/19/2021 Provi danita: Donna Diaz [employer] PLAYER Diagnosis: Low back pain 2 (200 MG) PO TID W/ 800 MG PO TID SUMAtriptan Succinate 100 MG Oral Tablet 05/24/2021 - 2020 Provider: Donna Diaz [employer] PLAYER Diagnosis: Migraine without aur a, intractable, with status migrainosus 100mg po x 1 dose for MENSAH, repeat x 1 aft er 2 hours, MDD 200MG, 20- 28 migraines /month Past Medications on file Famotidine 40 MG Oral Tablet 07/05/2021 - 07/19/2021 Provide r: Donna Deniatjoo Pako WARNER Diagnosis: Heartburn 40 mg po every day for heartburn Percocet 10-325 MG Oral Tablet 06/21/2021 - 07/19/2021 Provi danita: Donna Diaz NP Diagnosis: Chronic pain syndrom e one tab every 4-6 hours as needed , MDD #6 Percocet 10-325 MG Oral Tablet 05/24/2021 - 06/21/2021 Provi danita: Wauseon Denitajoo Pako [employer] PLAYER Diagnosis: Chronic pain syndrom e one tab every 4-6 hours as needed , MDD #6 Percocet 10-325 MG Oral Tablet 04/26/2021 - [...] 01/24/2021 - 02/21/2021 Provi danita: Donna Diaz [employer] PLAYER Diagnosis: Chronic pain syndrom e one tab every 4-6 hours as needed , MDD #6 Metoprolol Succinate ER 100 MG Oral Tablet Extended Re lease 24 Hour 12/29/2020 - 03/27/2021 Provider: Donna Diaz [employer] PLAYER Diagnosis: Migraine w/o aura, n ot intractable, w/o status migrainosus 1 every day RAISED FROM 50 MG QD Percocet 10-325 MG Oral Tablet 12/29/2020 - 01/24/2021 Provi danita: Donna Diaz [employer] PLAYER Diagnosis: Chronic pain syndrom e one tab every 4-6 hours as needed , MDD #6 Ondansetron 4 MG Oral Tablet Disintegrating 12/29/2020 - 08/2021 Provider: Donna Diaz NP Diagnosis: Nausea 1 PO TID PRN LAST USED 4 DAYS AGO Percocet 10-325 MG Oral Tablet 11/28/2020 - 12/29/2020 Provi danita: Donna Diaz NP Diagnosis: Chronic pain syndrom e one tab every 4-6 hours as needed , MDD #6 Ajovy 225 MG/1.5ML Subcutaneous Solution Prefilled Syr cat 11/28/2020 - 03/27/2021 Provider: Donna Diaz NP Diagnosis: Migraine with aura, not intractable, w/o status migrainosus 225 mg SQ q month approved through ins. Percocet 10-325 MG Oral Tablet 10/28/2020 - 11/28/2020 Provi danita: Wauseon Mariae Pako [employer] PLAYER Diagnosis: Chronic pain syndrom e one tab every 4-6 hours as needed , MDD #6 SUMAtriptan Succinate 100 MG Oral Tablet 10/28/2020 - 2020 Provider: Donna Diaz [employer] PLAYER Diagnosis: Migraine without aur a, intractable, with status migrainosus 100mg po x 1 dose for MENSAH, repeat x 1 aft er 2 hours, MDD 200MG, 20- 28 migraines /month Percocet 10-325 MG Oral Tablet 09/30/2020 - 10/28/2020 Provi danita: Donna Diaz NP Diagnosis: Chronic pain syndrom e one tab every 4-6 hours as needed , MDD #6 Metoprolol Succinate ER 100 MG Oral Tablet Extended Re lease 24 Hour 09/30/2020 - 12/29/2020 Provider: Donna Diaz NP Diagnosis: Migraine w/o aura, n ot intractable, w/o status migrainosus 1 every day RAISED FROM 50 MG QD Gabapentin 100 MG Oral Capsule 09/30/2020 - 03/27/2021 Provi danita: Donna Diaz NP Diagnosis: Low back pain 2 (200 MG) PO TID W/ 800 MG PO TID Gabapentin 800 MG Oral Tablet 09/30/2020 - 03/27/2021 Provid er: Donna Diaz NP Diagnosis: Low back pain three times a day with 100 mg TID Ondansetron 4 MG Oral Tablet Disintegrating 09/30/2020 - 09/2021 Provider: Donna Diza [employer]ER Diagnosis: Nausea 1 PO TID PRN LAST USED 4 DAYS AGO Percocet 10-325 MG Oral Tablet 09/01/2020 - 09/30/2020 Provi danita: Donna Diaz [employer] PLAYER Diagnosis: Chronic pain syndrom e one tab every 4-6 hours as needed , MDD #6 SUMAtriptan Succinate 100 MG Oral Tablet 09/01/2020 - 2019 Provider: Donna Diaz [employer] PLAYER Diagnosis: Migraine without aur a, intractable, with status migrainosus 100mg po x 1 dose for MENSAH, repeat x 1 aft er 2 hours, MDD 200MG, 20- 28 migraines /month Ajovy 225 MG/1.5ML Subcutaneous Solution Prefilled Syr cat 08/02/2020 - 11/28/2020 Provider: Donna Diaz [employer] PLAYER Diagnosis: Migraine with aura, not intractable, w/o status migrainosus 225 mg SQ q month approved through ins. Percocet 10-325 MG Oral Tablet 08/02/2020 - 09/01/2020 Provi danita: Donan Diaz PROFESSIONAL [employer] PLAYER Diagnosis: Chronic pain syndrom e one tab every 4-6 hours as needed , MDD 6 Metoprolol Succinate ER 100 MG Oral Tablet Extended Re lease 24 Hour 08/02/2020 - 09/30/2020 Provider: Wauseonlin Diaz [employer] PLAYER Diagnosis: Migraine w/o aura, n ot intractable, w/o status migrainosus 1 every day RAISED FROM 50 MG QD Percocet 10-325 MG Oral Tablet 07/05/2020 - [...] elbow INJECT TO L ELBOW IN OFFICE Lidocaine HCl 1% Injection Solution 05/30/2020 - 06/30/2020 Provider: Monica Rashid MD Diagnosis: Medial epicondylitis , left elbow INJECT W/ KENALOG TO L ELBOW IN OFFICE Percocet 10-325 MG Oral Tablet 05/30/2020 - 05/30/2020 Provi danita: Monica Rashid MD Diagnosis: Chronic pain syndrom e one tab every 4-6 hours as needed , MDD 6 Percocet 10-325 MG Oral Tablet 05/02/2020 - [...] every day RAISED FROM 50 MG QD SUMAtriptan Succinate 100 MG Oral Tablet 05/02/2020 - 2019 Provider: Monica Rashid MD Diagnosis: Migraine without aur a, intractable, with status migrainosus 100mg po x 1 dose for MENSAH, repeat x 1 aft er 2 hours, MDD 200MG, 20- 28 migraines /month PLEASE D/C PREVIOUS SCRIPT Ajovy 225 MG/1.5ML Subcutaneous Solution Prefilled Syr cat 04/28/2020 - 08/02/2020 Provider: Monica Rashid MD Diagnosis: Migraine with aura, not intractable, w/o status migrainosus 225 mg SQ q month approved through ins. Percocet 10-325 MG Oral Tablet 04/01/2020 - [...] mg TID Gabapentin 100 MG Oral Capsule 04/01/2020 - 09/30/2020 Provi danita: Monica Rashid MD Diagnosis: Low back pain 2 (200 MG) PO TID W/ 800 MG PO TID Percocet 10-325 MG Oral Tablet 03/02/2020 [...] 25 MG Gabapentin 800 MG Oral Tablet 01/05/2020 - 04/01/2020 Provid er: Monica Rashid MD Diagnosis: Low back pain three times a day with 100 mg TID Klor-Con M20 20 MEQ Oral Tablet Extended Release 12/07/2019 - 01/05/2020 Provider: Melvin Noriega MD Diagnosis: Hypokalemia 20 MEQ bid [...] Oral Capsule 10/19/2019 - 01/05/2020 Provi danita: Monica Rashid MD Diagnosis: Low [...] Tablet 06/24/2019 - 07/23/2019 Provid er: Kellie Pabon Diagnosis: Other chronic pain 1 every 4 - 6 hours as needed MDD: 6 TABS raNITIdine HCl 150MG Oral Tablet 06/24/2019 - 07/23/2019 Pro vider: Kellie Pabon Diagnosis: Unspecified chronic gastritis without bleeding 1 [...] Capsule 05/26/2019 - 05/26/2019 Provid er: Monica Rsahid MD Diagnosis: Low back pain Take as directed 2 (200 MG) PO TID W/ 800 MG PO TID SUMAtriptan Succinate 50MG Oral Tablet 05/05/2019 - 07/23/20 Provider: Monica Rashid MD Diagnosis: Migraine w/o [...] Succinate 50MG Oral Tablet 01/14/2019 - 04/14/20 19 Provider: Monica Rashid MD Diagnosis: Migraine [...] Ondansetron 4MG Oral Tablet Disintegrating 12/15/2018 - 07/0 07/2019 Provider: Monica Rashid MD Diagnosis: Nausea [...] Take as directed Percocet 10-325MG Oral Tablet 08/27/2018 - 09/25/2018 [...] 2700 mg qd Percocet 10-325MG Oral Tablet 07/31/2018 - 08/27/2018 Provid er: Monica Rashid MD Diagnosis: Other chronic pain 1 every 4 - 6 hours as needed MDD: 6 TABS Percocet 10-325MG Oral Tablet 07/02/2018 - 07/31/2018 Provid er: Monica Rashid MD Diagnosis: Other chronic pain 1 every 4 - 6 hours as needed MDD: 6 TABS Kenalog 40MG/ML Injection Suspension 05/29/2018 - 07/31/2018 [...] epicondyliti s, right elbow Take as directed Percocet 10-325MG Oral Tablet 04/30/2018 - 05/29/2018 Provid er: Monica Rashid MD Diagnosis: Other chronic pain 1 every 4 - 6 hours as needed MDD: 6 TABS Ciprofloxacin HCl 250MG Oral Tablet 04/30/2018 - 05/29/2018 Provider: Monica Rashid MD Diagnosis: Cystitis, unspecifie d without hematuria 1 tab twice a day Gabapentin 800MG Oral Tablet 04/03/2018 [...] Low back pain Three times a day Percocet 10-325MG Oral Tablet 03/03/2018 - 04/02/2018 Provid er: Monica Rashid MD Diagnosis: Other chronic pain 1 every 4 - 6 hours as needed MDD: 6 TABS Breo Ellipta 200-25MCG/INH Inhalation Aerosol Powder B reath Activated 02/11/2018 - 04/03/2018 Provider: Kellie Olson [employer] Diagnosis: Other asthma 1 every day, samples given as med is not covered by insuranc e Breo Ellipta 200-25MCG/INH Inhalation Aerosol Powder B reath Activated 02/03/2018 - 02/03/2018 Provider: Kellie Olson [employer] Diagnosis: Other asthma 1 every day Percocet 10-325MG Oral Tablet 02/03/2018 - 03/03/2018 Provid er: Kellie Olson [employer] WORK[employer] Diagnosis: Other chronic pain 1 every 4 - 6 hours as needed MDD: 6 TABS Folic Acid 1MG Oral Tablet 01/02/2018 - [...] unspecified 2 puffs two times a day Percocet 10-325MG Oral Tablet 12/02/2017 - 01/02/2018 Provid er: Monica Rashid MD Diagnosis: Other chronic pain 1 every 4 - 6 hours as needed MDD: 6 TABS Cipro 250MG Oral Tablet 12/02/2017 - 12/10/2017 Provider: Monica Rashid MD Diagnosis: Acute cystitis with hematuria 1 tab twice a day Percocet 10-325MG Oral Tablet 11/04/2017 - 12/02/2017 Provid er: Kellie A Danita [employer] Diagnosis: Other chronic pain 1 every 4 - 6 hours as needed MDD: 6 TABS Folic Acid 1MG Oral Tablet 10/07/2017 - 01/02/2018 Provider: Kellie Olson [employer] Diagnosis: Other folate deficie ncy anemias 1 tab po QD Gabapentin 800MG Oral Tablet 10/07/2017 - 01/02/2018 Provide r: Kellie Olson [employer] Diagnosis: Low back pain Three times a day FROM 400 MG PO TID Percocet 10-325MG Oral Tablet 10/07/2017 - 11/04/2017 Provid er: Kellie Olson [employer] Diagnosis: Other chronic pain 1 every 4 - 6 hours as needed MDD: 6 TABS Advair Diskus 250-50MCG/DOSE Inhalation Aerosol Powder Breath Activated 10/07/2017 - 01/02/2018 Provider: Kellie Olson [employer] Diagnosis: Other emphysema 1 PUFF PO BID Percocet 10-325MG Oral Tablet 09/05/2017 - 11/04/2017 Provid er: Monica Rashid MD Diagnosis: Other chronic pain 1 every 4 - 6 hours as needed MDD: 6 TABS Percocet 10-325MG Oral Tablet 2017 - 09/05/2017 Provid er: Kellie Olson [employer] Diagnosis: Other chronic pain 1 every 4 [...] PUFF PO BID Percocet 10-325MG Oral Tablet 07/11/2017 - 2017 Provid er: Monica Rashid MD Diagnosis: Other chronic pain 1 every 4 - 6 hours as needed MDD: 6 TABS Gabapentin 400MG Oral Capsule, conventional 06/12/2017 - Provider: Monica Rashid MD Diagnosis: Foot drop, left foot Three times a day Percocet 10-325MG Oral Tablet 06/12/2017 - 07/11/2017 Provid er: Monica Rashid MD Diagnosis: Other chronic pain 1 every 4 - 6 hours as needed MDD: 6 TABS Percocet 10-325MG Oral Tablet 05/13/2017 - 06/12/2017 Provid er: Monica Rashid MD Diagnosis: Other chronic pain 1 every 4 - 6 hours as needed MDD: 6 TABS Advair Diskus 250-50MCG/DOSE Inhalation Aerosol Powder Breath Activated 05/07/2017 - 07/11/2017 Provider: Monica Rashid MD Diagnosis: Other emphysema 1 PUFF PO BID Zofran 4MG Oral Tablet 05/07/2017 - 07/11/2017 Provider: Monica Rashid MD Diagnosis: Nausea 4 mg po TID PRN for nauseaREVIEWED BUT NOT DISPENSED Gabapentin 400MG Oral Capsule 05/07/2017 - 06/12/2017 Provid er: Monica Rashid MD Diagnosis: Foot drop, left foot Three times a dayREVIEWED BUT NOT DISPENSED Gabapentin 800MG Oral Tablet 05/07/2017 - 07/11/2017 Provide r: Monica Rashid MD Diagnosis: Low back pain Three times a day FROM 400 MG PO TID Percocet 10-325MG Oral Tablet 04/29/2017 - 05/07/2017 [...] - 04/11/2017 Provid er: Kellie Vieira Danita [employer] Diagnosis: Low back pain 1 every 4 - 6 hours as needed MDD: 6 TAB S ( ins. will only allow 7 day supply at a time) Percocet 10-325MG Oral Tablet 04/08/2017 - 04/08/2017 Provid er: Kellie Vieira Danita [employer] Diagnosis: Low back pain 1 every 4 - 6 hours as needed MDD: 6 TABS Gabapentin 400MG Oral Capsule 04/08/2017 - 05/07/2017 Provid er: Kellie Olson [employer] Diagnosis: Foot drop, left foot Three times [...] Recorded Vital Signs Includes: Vital Signs from 07/19/2020 through 07/19/2021 Vital Name 07/19/2021 10:54A 06/21/2021 01:42P 05/24/2021 01:38P 04/26/2021 01:05P 03/27/2021 12:59P Blood Pressure Sitting L /64 118/62 100/60 BP Cuff Size Regular Regular Regular Regular Pulse Rate-Sitting (bpm) 76 75 90 76 Respiration Rate (breaths/min) 20 18 24 20 Temp-Tympanic (F) 97.5 95.2 97.6 97.6 Height (in) 64 64 64 64 64 Weight (lb) 105 104 98 98 Body Mass Index (kg/m2) 18.0 17.9 16.8 1 6.8 Body Surface Area (m2) 1.49 1.48 1.44 1. 44 Oxygen Saturation (%) 99 98 99 99 Flow Rate (l/min) (None (Room Air)) (None (Ro om Air)) FiO2 (%) 21 21 Blood Pressure Sitting R 114/70 Vital Name 02/21/2021 02:32P 01/24/2021 01:17P 12/29/2020 11:09A 11/28/2020 10:30A 10/28/2020 10:02A Blood Pressure Sitting L 118/68 102/62 110/70 100/58 BP Cuff Size Regular Regular Regular Regular Pulse Rate-Sitting (bpm) 80 80 81 90 88 Respiration Rate (breaths/min) 24 20 24 20 20 Temp-Tympanic (F) 97.6 98.2 98.1 Height (in) 64 64 64 64 64 Weight (lb) 97 104 98 101 98 Body Mass Index (kg/m2) 16.6 17.9 16.8 17.3 1 6.8 Body Surface Area (m2) 1.44 1.48 1.44 1.46 1. 44 Oxygen Saturation (%) 95 99 99 98 97 Flow Rate (l/min) (None (Room Air)) (None (Room Air)) ( None (Room Air)) FiO2 (%) 21 21 21 Blood Pressure Sitting R 120/68 Temp-Temporal 97.6 97.1 Vital Name 09/30/2020 09:40A 09/01/2020 10:51A 08/02/2020 04:07P Blood Pressure Sitting L 110/66 BP Cuff Size Pediatric Regular Regular Pulse Rate-Sitting (bpm) 100 68 70 Respiration Rate (breaths/min) 20 20 18 Height (in) 64 64 64 Weight (lb) 96 103 100 Body Mass Index (kg/m2) 16.5 17.7 17.2 Body Surface Area (m2) 1.43 1.48 1.46 Oxygen Saturation (%) 97 95 99 Flow Rate (l/min) (None (Room Air)) (None (Room Air)) (None (Room Air)) FiO2 (%) 21 21 21 Blood Pressure Sitting R 114/74 114/70 Temp-Temporal 96.8 97.1 96.6 Results Includes: Results from 07/19/2020 through 07/19/2021 GATS CULTURE (NEG STREP SCR) [facility] Ordered by Donna Diaz PROFESSIONAL [employer]ER PLAYER on 05/27/[address] [place] [address], [address] Collected: 05/27/2021 Reported: 05/28/2021 06:18 tel :[phone] GATS CULTURE (NEG STREP SCR) See Note N (Normal) Note: FULL REPORT IN LAB NOTES (eCW and Med[facility]).NEGATIVE FOR STREP PYOGENES (GROUP A) NOTES See Note None Note: Is patient on Antibiotics? N SOUR CE: THROAT Reviewed by Donna Diaz PROFESSIONAL SO[employer]ER PLAYER on 05/29/2021; All test results are final unless otherwise noted. Reported Physicians [facility] Ordered by Donna Diaz PROFESSIONAL SOCCER PLAYER on 05/27/[address] [place] [address], [address] Collected: 05/27/2021 Reported: 05/28/2021 06:18 tel :[phone] Reported Physicians See Note None Note: Reported Physicians:Ordering: Tesha Barajas [phone]: Anthony Ortega To: Anthony Ortega To: Monica Rashid Reviewed by Donna Diaz PROFESSIONAL [employer]ER PLAYER on 05/29/2021; All test results are final unless otherwise noted. CHI STREP A [facility] Ordered by Donna Diaz PROFESSIONAL SOCCER PLAYER on 05/27/[address] [place] [address], [facility] Collected: 05/27/2021 Reported: 05/27/2021 12:08 tel :[phone] CHI STREP A NEGATIVE (NEGATIVE) N (Normal) Reviewed by Donna Diaz PROFESSIONAL [employer]ER PLAYER on 05/29/2021; All test results are final unless otherwise noted. Reported Physicians [facility] Ordered by Donna Diaz NP on 05/27/[address] [place] [address], [address] Collected: 05/27/2021 Reported: 05/27/2021 12:08 tel :[phone] Reported Physicians See Note None Note: Reported Physicians:Ordering: Rajni Bales [phone] MDAttending: Anthony Ortega To: Anthony Ortega To: Monica Rashid Reviewed by Donna Diaz NP on 05/29/2021; All test results are final unless otherwise noted. MEDWATCH TOXASSURE SELECT 13 [facility] Ordered by Monica Rashid MD on 03/27/2021 [address] [place], [address] Collected: 03/27/2021 Reported: 04/03/2021 06:26 tel :[phone] Summary Report (Summary) FINAL None Note: TOXASSURE [...] are final unless otherwise noted. Reported Physicians [facility] Ordered by Monica Rashid MD on 03/27/[address] [place] [address], [address] Collected: 03/27/2021 Reported: 04/03/2021 06:26 tel : Reported Physicians See Note None Note: Reported Physicians:Ordering: Monica Dominguez AAttending: MONICA RASHIDReferring: MONICA RASHIDConsulting: MONICA RASHIDCopmichelle To: Monica Rashid Reviewed by Monica Rashid MD on 2020; All test results are final unless otherwise noted. CHI SNEED [facility] Ordered by Donna Diaz NP on 03/14/2021 [address] [place], [address] Collected: 03/14/2021 Reported: 03/14/2021 22:14 tel :[phone] CHI COVID ANTIGEN NEGATIVE (NEGATIVE) N (Normal) [...] are final unless otherwise noted. Reported Physicians [facility] Ordered by Donna Diaz NP on 03/14/[address] [place] [address], [address] Collected: 03/14/2021 Reported: 03/14/2021 22:14 tel :[phone] Reported Physicians See Note None Note: Reported Physicians:Ordering: JACQUIE CANNON [phone], ATUL Kelsey,Attending: Alfonzo RIVERA To: Alfonzo RIVERA To: Monica Rashid Reviewed by Donna Diaz NP on 03/19/2021; All test results are final unless otherwise noted. CORONAVIRUS 2019 NASOPHARYGEAL [facility] Ordered by Donna Diaz NP on 03/14/[address] [place] [address], [address] Collected: 03/14/2021 Reported: 03/16/2021 12:30 tel :[phone] CORONAVIRUS 2019 NASOPHARYGEAL See Note None Note: ASSAY INFORMATION: Real Time RT-PC RNOTE: The COVID-19 assay has been cleared by the U.S. Food and DrugAdministration under the Emergency Use Authorization (EUA). [facility] and [facility] are designated as high complexity laboratories by theClinical Laboratory Improvement Amendments of 1988(CLIA) and are qualified toperform this test.Not Detected Reviewed by Donna Diaz NP on 03/19/2021; All test results are final unless otherwise noted. Reported Physicians [facility] Ordered by Donna Diaz NP on 03/14/[address] [place] [address], [address] Collected: 03/14/2021 Reported: 03/16/2021 12:30 tel :[phone] Reported Physicians See Note None Note: Reported Physicians:Ordering: KASI SEO [phone]: Alfonzo RIVERA To: Alfonzo RIVERA To: Hemant DALTON To: Monica Rashid Reviewed by Donna Diaz PROFESSIONAL [employer]ER PLAYER on 03/19/2021; All test results are final unless otherwise noted. CBC WITH DIFFERENTIAL [facility] Ordered by Donna Diaz NP on 02/18/[address] [place] [address], [address] Collected: 02/18/2021 Reported: 02/18/2021 16:05 tel :[phone] WHITE BLOOD COUNT 3.7 3/uL (4.0-10.0) L [...] are final unless otherwise noted. Reported Physicians [facility] Ordered by Donna Diaz NP on 02/18/[address] [place] [address], [facility] Collected: 02/18/2021 Reported: 02/18/2021 16:05 tel :[phone] Reported Physicians See Note None Note: Reported Physicians:Ordering: Barbie Sarkar [phone]: Alfonso Mckeon To: Alfonso Mckeon To: Monica Rashid Reviewed by Donna Diaz NP on 02/22/2021; All test results are final unless otherwise noted. BASIC METABOLIC PROFILE [facility] Ordered by Donna Diaz NP on 02/18/[address] [place] [address], [address] Collected: 02/18/2021 Reported: 02/18/2021 16:36 tel :[phone] GLUCOSE, FASTING 85 MG/DL (70-100) N (Normal) [...] Little GFR Left ESRD GFR <15 on RESIDENTIAL SALES SODIUM LEVEL 140 MEQ/L (136-145) N (Normal) POTASSIUM SERUM 4.1 MEQ/L (3.5-5.1) N (Normal) CHLORIDE LEVEL 106 MEQ/L (98-107) N (Normal) CARBON DIOXIDE LEVEL 31 MEQ/L (21-32) N (Normal) ANION GAP 3 MEQ/L (8-16) L (Low) CALCIUM LEVEL 9.2 MG/DL (8.5-10.1) N (Normal) Reviewed by Donna Diaz NP on 02/22/2021; All test results are final unless otherwise noted. Reported Physicians [facility] Ordered by Donna Diaz NP on 02/18/[address] [place] [address], [facility] Collected: 02/18/2021 Reported: 02/18/2021 16:36 tel :[phone] Reported Physicians See Note None Note: Reported Physicians:Ordering: Barbie Sarkar [phone], Maja MDAttending: Alfonso Mckeon To: Alfonso Mckeon To: Monica Rashid Reviewed by Donna Diaz NP on 02/22/2021; All test results are final unless otherwise noted. LIPASE [facility] Ordered by Donna Diaz NP on 02/18/[address] [place] [address], [facility] Collected: 02/18/2021 Reported: 02/18/2021 16:36 tel :[phone] LIPASE 74 U/L (73-393) N (Normal) Reviewed by Donna Diaz NP on 02/23/2021; All test results are final unless otherwise noted. Reported Physicians [facility] Ordered by Donna Diaz NP on 02/18/[address] [place] [address], [facility] Collected: 02/18/2021 Reported: 02/18/2021 16:36 tel :[phone] Reported Physicians See Note None Note: Reported Physicians:Ordering: Barbie Sarkar [phone], Maja MDAttending: Alfonso Mckeon To: Alfonso Mckeon To: Monica Rashid Reviewed by Donna Diaz NP on 02/23/2021; All test results are final unless otherwise noted. LIVER PROFILE [facility] Ordered by Donna Diaz NP on 02/18/[address] [place] [address], [address] Collected: 02/18/2021 Reported: 02/18/2021 16:36 tel :[phone] AST/SGOT 14 U/L (7-37) N (Normal) ALT/SGPT [...] are final unless otherwise noted. Reported Physicians [facility] Ordered by Donna Diaz NP on 02/18/[address] [place] [address], [address] Collected: 02/18/2021 Reported: 02/18/2021 16:36 tel :[phone] Reported Physicians See Note None Note: Reported Physicians:Ordering: Barbie Sarkar [phone]: Alfonso Mckeon To: Alfonso Mckeon To: Monica Rashid Reviewed by Donna Diaz NP on 02/23/2021; All test results are final unless otherwise noted. HCG SERUM QUALITATIVE [facility] Ordered by Donna Diaz NP on 02/18/[address] [place] [address], [address] Collected: 02/18/2021 Reported: 02/18/2021 16:36 tel :[phone] HCG, SERUM QUALITATIVE NEGATIVE (NEGATIVE) N (Normal) Reviewed by Donna Diaz NP on 02/23/2021; All test results are final unless otherwise noted. Reported Physicians [facility] Ordered by Donna Diaz PROFESSIONAL SOCCER PLAYER on 02/18/[address] [place] [address], [address] Collected: 02/18/2021 Reported: 02/18/2021 16:36 tel : Reported Physicians See Note None Note: Reported Physicians:Ordering: Barbie Sarkar [phone]: Alfonso Mckeon To: Alfonso Mckeon To: Monica Rashid Reviewed by Donna Diaz PROFESSIONAL SOCCER PLAYER on 02/23/2021; All test results are final unless otherwise noted. CORONAVIRUS 2019 NASOPHARYGEAL [facility] Ordered by Monica Rashid MD on 11/01/[address] [place] [address], [address] Collected: 11/01/2020 Reported: 11/04/2020 11:16 tel : [...] SARS-CoV-2 virusand/or diagnosis of COVID-19 infection under amxvtvo882(b)(1) of the Act, 21 U.S.C. 360bbb-3(b) (1), [...] detec antonia) result in this assay.Performed at: [facility], [place], [place] [id number] Director: Denise Giraldo PhD, Phone: [phone] Detected Reviewed by Monica Rashid MD on 2019; All test results are final unless otherwise noted. Reported Physicians [facility] Ordered by Monica Rashid MD on 11/01/2020 [address] [place], [address] Collected: 11/01/2020 Reported: 11/04/2020 11:16 tel :[phone] Reported Physicians See Note None Note: Reported Physicians:Ordering: GEOVANI REYES [phone]: DAMIR THIBODEAUXCopmichelle To: Ifeanyi THIBODEAUX To: Loraine RASMUSSEN To: Monica Rashid Reviewed by Monica Rashid MD on 2019; All test results are final unless otherwise noted. D-DIMER [facility] Ordered by Donna Diaz PROFESSIONAL SOCCER PLAYER on 10/28/[address] [place] [address], [address] Collected: 10/28/2020 Reported: 10/28/2020 12:08 tel :[phone] D-DIMER QUANT <0.27 ug/mL (0.27 - 0.50) None Note: Responsible Observer: (SJR) Reviewed by Donna Diaz NP on 11/01/2020; All test results are final unless otherwise noted. Reported Physicians [facility] Ordered by Donna Diaz PROFESSIONAL SOCCER PLAYER on 10/28/[address] [place] [address], [address] Collected: 10/28/2020 Reported: 10/28/2020 12:08 tel :[phone] Reported Physicians See Note None Note: Reported Physicians:Ordering: DONNA TOSCANOAttending: DONNA DIAZConsulting: Eric RASHID To: Monica Rashid Reviewed by Donna Diaz PROFESSIONAL SOCCER PLAYER on 11/01/2020; All test results are final unless otherwise noted. TROPONIN T [facility] Ordered by Donna Diaz NP on 10/28/[address] [place] [address], [address] Collected: 10/28/2020 Reported: 10/28/2020 12:25 tel :[phone] TROPONIN T <0.01 NG/ML (0.00 - 0.10) None Note: TROPONIN T0.1 ng/ml Recommended as the clinical threshold value Darron Khan.Responsible Observer: (AISHA) Reviewed by Donna Diaz PROFESSIONAL SOCCER PLAYER on 11/01/2020; All test results are final unless otherwise noted. Reported Physicians [facility] Ordered by Donna Diaz PROFESSIONAL SOCCER PLAYER on 10/28/[address] [place] [address], [address] Collected: 10/28/2020 Reported: 10/28/2020 12:25 tel :[phone] Reported Physicians See Note None Note: Reported Physicians:Ordering: DONNA TOSCANOAttkaley: DONNA DIAZConlatonialting: Eric RASHID To: Monica Rashid Reviewed by Donna Diaz PROFESSIONAL SOCCER PLAYER on 11/01/2020; All test results are final unless otherwise noted. PRO-BNP [facility] Ordered by Donna Diaz PROFESSIONAL SOCCER PLAYER on 10/28/[address] [place] [address], [address] Collected: 10/28/2020 Reported: 10/28/2020 12:34 tel :[phone] BNP 133 PG/ML (0 - 125) H (High) Note: Responsible Observer: (TAD) Reviewed by Donna Diaz PROFESSIONAL SOCCER PLAYER on 11/01/2020; All test results are final unless otherwise noted. Reported Physicians [facility] Ordered by Donna Diaz PROFESSIONAL SOCCER PLAYER on 10/28/[address] [place] [address], [address] Collected: 10/28/2020 Reported: 10/28/2020 12:34 tel :[phone] Reported Physicians See Note None Note: Reported Physicians:Ordering: DONNA TOSCANOAttending: DONNA DIAZConsulting: MONICA RASHIDCopmichelle To: Monica Rashid Reviewed by Donna Diaz PROFESSIONAL SOCCER PLAYER on 11/01/2020; All test results are final unless otherwise noted. History of Present Illness History of Present Illness not supported for this document typeNo History of Present Illness Recorded Social History Description Last Updated Social history unchanged 07/19/2021 ~QUIT WORKING MARCH 2021 "SO I COULD [...] Procedures and Surgical History Includes: Procedures from 07/19/2020 through 07/19/2021No Procedures For Specified Dates. No Surgical History Recorded Medical History Includes: Medical History in patient's chart Description Last Updated [facility] 09/29/19 10/19/2019 No history of coronary artery [...] Right Arm Complete (Admin istered) [facility] Note: manufactured by [employer] usvaccination information sheet given Influenza,NOS 2 09/26/2019 Complete (Reported) Pat ient Influenza,NOS 3 03/27/2021 Complete (Refus ed - Patient objection) [facility] PCV (Pneumovax 23) ages 2+ 1 09/05/2017 Complete (Refused - Patient objection) [facility] Td 1 09/05/2017 Complete (Refused - Patient objection) [facility] Allergies Includes: Active, inactive, and resolved Allergies Substance Type Reaction Onset Date - Time Resolved Date - Ti me Status Topamax Allergy 04/03/2017 - 12:00AM Acti ve Keflex Allergy Skin Rashes, Hives 04/03/2017 - 12:00AM Active Dilaudid Allergy 04/03/2017 - 12:00AM Acti ve Amitriptyline HCl Allergy Increased BP and Pulse 04/03/2017 - 12:0 0AM Active Encounters Includes: Encounters from 07/19/2020 through 07/19/2021 Encounter Provider Location Date Check-In Time Check-Out Time D iagnosis STANDARD [facility] [place] Ameena Diaz NP [facility] 07/19/2021 10:36AM 11:16AM Gerd, Chronic Pain STANDARD [facility] [place] Ame[place] Diaz NP [facility] 06/21/2021 1:35PM 1:59PM Chronic Pain, Nausea STANDARD [facility] [place] Ameena Diaz NP [facility] 05/24/2021 1:29PM 2:02PM Chronic Pain, Migraine Heada brian STANDARD OV Monica Rashid MD [facility] 021 1:04PM 1:30PM Chronic Pain, Nausea, Acquired Deformity - Foot Drop WRITE-IN (SAME DAY) Monica Rashid MD [facility] 03/27/2021 12:55PM 1:34PM Constipation, Classi c Migraine W/ Aura W/ Intractable Migraine with Status Migrainosus, Nicotine Dependence Uncomplicated, Chronic Pain WRITE-IN (SAME DAY) Monica Rashid MD [facility] 02/21/2021 2:30PM 3:21PM Common Migraine With out Aura Without Intractable Migraine, Nausea, Anemia Normochromic, Normocytic, Chronic Pain, Vaping Related Disorder EXTENDED VISIT [place] Ame[facility] Diaz NP [facility] 01/24/2021 1:05PM 1:40PM [facility] 12/29/2020 11:09AM 11:42AM Migraine Headache, Chronic P ain EXTENDED VISIT [place] Ameena Diaz NP [facility] 11/28/2020 10:28AM 11:07AM Psychogenic Formicat ion, Chronic Pain [facility] 10/28/2020 9:52AM 10:32AM Atypical Chest Pain, Migrain e Headache, Chronic Pain ANNUAL PHYSICAL EXAM [place] Ameena Diaz NP [facility] 09/30/2020 9:38AM 10:37AM Routine History & Ph ysical Adult Without Abnormal Findings, Atypical Chest Pain EXTENDED VISIT [place] Ameena Diaz NP [facility] 09/01/2020 10:50AM 11:42AM Chronic [facility] 08/02/2020 4:01PM 4:46PM Chronic Pain Insurance Includes: Active Insurance Policies Plan Name Member ID Group # Subscriber Relationship Effective Da damaris 1 - [employer] [id number] Gretchen Deleon Advance Directives Includes: Current Advance DirectivesNo Advance Directives Recorded Health Concerns Includes: Active Health ConcernsNo Active Health Concerns Recorded Goals Includes: Active Goals refer to dr poe for foot concerns Added 07/11/2017 by Provider Interventions Includes: Interventions for active GoalsNo Interventions Recorded Evaluations & Outcomes Includes: Evaluations & Outcomes for active GoalsNo Outcomes Recorded
--- OUTSIDE RECORDS SUMMARY | 2021-09-03 14:53 | CCD ---
Author Author [facility] Organization [facility] Address [address] [place] [address] Phone Care Team Providers Care Musical Instrument Maker Name Role Phone Rachid WILLS, Monica Vieira Unavailable [phone] Pako WARNER, Donna Lindquist Unavailable [phone] Reason for Referral No Reason for Referral Recorded Problems Includes: Active, inactive, and resolved Problems All Visits Onset Date - Time Resolved Date - Time Provider Co ndition Status Psychogenic Formication 11/28/2020 - 12:00AM Donan Diaz NP Active Note: Unchanged Atypical Chest [...] abdominal pa in 10/10/17 Kellie A Danita INDEPENDENT INSURANCE ADJUSTER CT Scan Abdomen CT Without Contrast Unspecified abdominal pain 10/10/17 Kellie A Danita INDEPENDENT INSURANCE ADJUSTER CT Scan Pelvis CT Scan With Contrast Unspecified abdominal agus n 10/10/17 Kellie A Danita INDEPENDENT INSURANCE ADJUSTER CT Scan Pelvis CT Scan Without Contrast Unspecified abdominal pain 10/10/17 Kellie A Danita INDEPENDENT INSURANCE ADJUSTER *Labs (Manual) UA/UCS Unspecified abdominal pain 10/10/17 Kellie A Danita INDEPENDENT INSURANCE ADJUSTER *Labs (Manual) *STAT Unspecified abdominal pain 10/10/17 Kellie A Danita INDEPENDENT INSURANCE ADJUSTER *Labs (Manual) CBC Unspecified abdominal pain 10/10/17 Kellie A Danita INDEPENDENT INSURANCE ADJUSTER *Labs (Manual) CMP Unspecified abdominal pain 10/10/17 Kellie A Danita INDEPENDENT INSURANCE ADJUSTER *Labs (Manual) CBC Other fatigue 01/16/18 Monica [...] Acute gastritis without bleeding Kellie A Danita INDEPENDENT INSURANCE ADJUSTER *Labs (Manual) CBC Acute gastritis without bleeding Kellie A Danita INDEPENDENT INSURANCE ADJUSTER *Labs (Manual) CMP Acute gastritis without bleeding Kellie A Danita INDEPENDENT INSURANCE ADJUSTER *Labs (Manual) *RANDOM Hypokalemia 07/09/19 Kellie A Danita F CUSTOMER SUCCESS INTERN *Labs (Manual) CMP Hypokalemia 07/09/19 Kellie A Danita F CUSTOMER SUCCESS INTERN *Labs (Manual) BMP Hypokalemia 08/06/19 Monica orr MD *Labs (Manual) SERUM ALDOSTERONE Hypokalemia 08/06/19 Monica Rashid MD *Labs (Manual) SERUM CORTISOL Hypokalemia 08/06/19 Monica cline MD X-RAY Upper GI with barium swallow (32899) Gas tritis, unspecified, without bleeding 08/06/19 Monica Rashid MD *Labs (Manual) MEASLES TITER HCC-Chronic obstruct akte pulmonary disease, unspecified 12/21/19 Melvin Noriega MD [...] (Manual) *FASTING Chronic pain syndrome 09/15/20 Franklin ceballos Ameena Diaz CUSTOMER SUCCESS INTERN *Labs (Manual) CBC Chronic pain syndrome 09/15/20 Franklin ceballos Ameena Diaz CUSTOMER SUCCESS INTERN *Labs (Manual) CMP Chronic pain syndrome 09/15/20 Franklin lin Ameena Diaz CUSTOMER SUCCESS INTERN *Labs (Manual) LIPID Chronic pain syndrome 09/15/20 Franklin lin Ameena Diaz CUSTOMER SUCCESS INTERN X-RAY Mammography- Ultrasound If Indicated Enc ntr screen mammogram for malignant neoplasm of breast 10/14/20 Donna Ameena Diaz CUSTOMER SUCCESS INTERN *Labs (Manual) D-dimer Chest pain, unspecified 11/11/20 Sim Diaz CUSTOMER SUCCESS INTERN *Labs (Manual) proBNP Chest pain, unspecified 11/11/20 Sim Diaz CUSTOMER SUCCESS INTERN *Labs (Manual) TROPONIN Chest pain, unspecified 11/11/20 Sim Diaz CUSTOMER SUCCESS INTERN *Labs (Manual) *RANDOM Chronic pain syndrome 04/10/21 Leopoldo Rashid MD *Labs (Manual) UA/UCS Chronic pain syndrome 04/10/21 Leopoldo Rashid MD [facility] [place] [facility] Future Appointments Date Time Location Provider STANDARD OV 07/19/2021 10:45AM [facility] NP ANNUAL PHYSICAL EXAM 10/03/2021 1:00PM [facility] Olmos NP Findings Encounter Date PDMP CONSULTED -- PERCOCET REFILLED FFUP 4W MED CHK STANDARD OV with Donna Diaz NP 06/21/2021 PDMP CONSULTED -- PERCOCET REFILLED FFUP 4W MED CHK STANDARD OV with Donna Diaz NP 05/24/2021 Ordered follow-up visit 1 MO WRITE-IN (SAME DAY) with Torey Rashid MD 03/27/2021 Ordered follow-up visit 1 MO WRITE-IN (SAME DAY) with Torey Rashid MD 02/21/2021 PDMP CONSULTED -- PERCOCET REFILLED FFUP 4W MED CHK EXTENDED VISIT with Donna Diaz NP 01/24/2021 PDMP CONSULTED -- PERCOCET REFILLED FFUP 4W MED CHK STANDARD OV with Donna Diaz CUSTOMER SUCCESS INTERN 12/29/2020 NEUROLOGY REFERRAL -- PT WONDERING IF SHE HAS ?ARACHNOIDITIS PDMP CONSULTED -- PERCOCET REFILLED FFUP 4W MED CHK EXTENDED VISIT with Donna Bran s CUSTOMER SUCCESS INTERN 11/28/2020 PDMP CONSULTED -- PERCOCET REFILLED FFUP 4W MED CHK STANDARD OV with Donna Diaz CUSTOMER SUCCESS INTERN 10/28/2020 PDMP CONSULTED -- PERCOCETREFILLED FFUP 4W MED CHK ANNUAL PHYSICAL EXAM with Donna Diaz CUSTOMER SUCCESS INTERN 09/30/2020 CBC, CMP, LIPIDS FFUP IN 4W FOR APE, LAB REVIEW, ME D CHECK EXTENDED VISIT with Donna Diaz CUSTOMER SUCCESS INTERN 09/01/2020 PDMP CONUSLTED -- PERCOCET REFILLED FFUP IN 4W MED CHECK STANDARD OV with Donna Diaz CUSTOMER SUCCESS INTERN 08/02/2020 Ordered follow-up visit STANDARD OV with [...] Requested request consultation by specialist TO RANULFO MOSS OV with Monica Rashid MD 04/30/2018 Ordered [...] Date Chronic pain STANDARD OV with Donna Diaz N P 06/21/2021 Nausea STANDARD OV with Donna Diaz N P 06/21/2021 Chronic pain STANDARD OV with Donna Diaz N P 05/24/2021 Migraine headache STANDARD OV [...] MD 02/21/2021 Chronic pain EXTENDED VISIT with Seneca Ameena sanchez CUSTOMER SUCCESS INTERN 01/24/2021 Chronic pain STANDARD OV with Seneca Ameena Talamantes P 12/29/2020 Migraine headache STANDARD OV with Seneca Ameena Talamantes P 12/29/2020 Chronic pain EXTENDED VISIT with Seneca Ameena sanchez CUSTOMER SUCCESS INTERN 11/28/2020 Psychogenic formication EXTENDED VISIT with Seneca Ameena valles NP 11/28/2020 Atypical chest pain STANDARD OV with Seneca Ameena Diaz N P 10/28/2020 Chronic pain STANDARD OV with Seneca Ameena Talamantes P 10/28/2020 Migraine headache STANDARD OV with Seneca Ameena Talamantes P 10/28/2020 Atypical chest pain ANNUAL PHYSICAL EXAM with Seneca Ameena Diaz NP 09/30/2020 Routine adult history and physical (18-64 yrs) without abnormal findings ANNUAL PHYSICAL EXAM with Seneca Ameena Diaz CUSTOMER SUCCESS INTERN 09/30/2020 Chronic pain EXTENDED VISIT with Seneca Ameena sanchez CUSTOMER SUCCESS INTERN 09/01/2020 Chronic pain STANDARD OV with Seneca Ameena Talamantes P 08/02/2020 Chronic pain STANDARD OV with [...] without int ractable migraine STILL HAS TO REVENUE INSPECTOR AJOVY STANDARD OV with Monica Rashid MD [...] Chronic obstructive pulmonary disease STANDARD OV with Torey Rashid MD 08/21/2019 Chronic pain STANDARD OV [...] pulmonary disease STANDARD OV with Kellie Olson INDEPENDENT INSURANCE ADJUSTER 06/24/2019 Chronic pain STANDARD OV with Kellie Vieira Danita INDEPENDENT INSURANCE ADJUSTER 019 Gastritis STANDARD OV with Kellie Vieira Danita INDEPENDENT INSURANCE ADJUSTER 019 Migraine headache STANDARD OV with Kellie Olson INDEPENDENT INSURANCE ADJUSTER 019 Nausea STANDARD OV with Kellie Olson INDEPENDENT INSURANCE ADJUSTER 019 Abnormal uterine bleeding STANDARD OV with [...] Chronic obstructive pulmonary disease STANDARD OV with Torey Rashid MD 07/31/2018 Chronic pain STANDARD OV [...] Chronic pain STANDARD OV with Kellie Olson INDEPENDENT INSURANCE ADJUSTER 018 Assessment of dyspnea during exertion STANDARD OV with Torey Rashid MD 01/02/2018 Childhood asthma STANDARD OV with Monica Rashid MD 12/19 Fatigue STANDARD OV with Monica Rashid MD 12/19 Nicotine related disorders STANDARD OV with Monica Rashid MD 01/02/2018 Chronic obstructive pulmonary disease STANDARD OV with Torey Rashid MD 12/02/2017 Chronic pain STANDARD OV with Monica Rashid MD 11/18 Cystitis STANDARD OV with Monica Rashid MD 11/18 Lumbar disc degeneration STANDARD OV with Monica Rashid MD 12/02/2017 Nicotine related disorders STANDARD OV with Monica Rashid MD 12/02/2017 Backache STANDARD OV with Kellie Olson INDEPENDENT INSURANCE ADJUSTER 017 Backache STANDARD OV with Kellie Olson INDEPENDENT INSURANCE ADJUSTER 017 Working diagnosis of abdominal pain WRITE-IN (SAME DAY) with Kellie Vieira Danita INDEPENDENT INSURANCE ADJUSTER 09/26/2017 Abnormal vaginal bleeding STANDARD OV with Monica Kelsey 09/05/2017 Chronic obstructive pulmonary disease STANDARD OV with Torey Rashid MD 09/05/2017 Chronic pain STANDARD OV with Monica Rashid MD 08/18 Left-sided sciatica STANDARD OV with Monica Rashid MD 08/18 Chronic pain STANDARD OV with Kellie Olson INDEPENDENT INSURANCE ADJUSTER 017 Closed [place] I fracture l cheek [...] as prescribed) Percocet 10-325 MG Oral Tablet 06/21/2021 - 07/21/2021 Provi danita: Donna Ameena Diaz NP Diagnosis: Chronic pain syndrom e one tab every 4-6 hours as needed , MDD #6 Gabapentin 800 MG Oral Tablet 06/21/2021 - 09/19/2021 Provid er: Donna Diaz NP Diagnosis: Low back pain three times a day with 100 mg TID Gabapentin 100 MG Oral Capsule 06/21/2021 - 09/19/2021 Provi danita: Donna Diaz ALANA Diagnosis: Low back pain 2 (200 MG) PO TID W/ 800 MG PO TID Ondansetron 4 MG Oral Tablet Disintegrating 06/21/2021 - 12/2020 Provider: Donna Diaz NP Diagnosis: Nausea 1 PO TID PRN LAST USED 3 DAYS AGO SUMAtriptan Succinate 100 MG Oral Tablet 05/24/2021 - 2020 Provider: Donna Diaz NP Diagnosis: Migraine without aur a, intractable, with status migrainosus 100mg po x 1 dose for MENSAH, repeat x 1 aft er 2 hours, MDD 200MG, 20- 28 migraines /month Past Medications on file Percocet 10-325 MG Oral Tablet 05/24/2021 - 06/21/2021 Provi danita: Donna Diaz NP Diagnosis: Chronic [...] 01/24/2021 - 02/21/2021 Provi danita: Donna Diaz CUSTOMER SUCCESS INTERN Diagnosis: Chronic pain syndrom e one tab every 4-6 hours as needed , MDD #6 Metoprolol Succinate ER 100 MG Oral Tablet Extended Re lease 24 Hour 12/29/2020 - 03/27/2021 Provider: Donna Diaz CUSTOMER SUCCESS INTERN Diagnosis: Migraine w/o aura, n ot intractable, w/o status migrainosus 1 every day RAISED FROM 50 MG QD Ondansetron 4 MG Oral Tablet Disintegrating 12/29/2020 - 08/2021 Provider: Donna Diaz CUSTOMER SUCCESS INTERN Diagnosis: Nausea 1 PO TID PRN LAST USED 4 DAYS AGO Percocet 10-325 MG Oral Tablet 12/29/2020 - 01/24/2021 Provi danita: Donna Diaz CUSTOMER SUCCESS INTERN Diagnosis: Chronic pain syndrom e one tab [...] 10/28/2020 - 11/28/2020 Provi danita: Donna Diaz NP Diagnosis: Chronic pain syndrom e one tab every 4-6 hours as needed , MDD #6 Ondansetron 4 MG Oral Tablet Disintegrating 09/30/2020 - 09/2021 Provider: Donna Diaz NP Diagnosis: Nausea 1 [...] 09/30/2020 - 03/27/2021 Provid er: Donna Diaz CUSTOMER SUCCESS INTERN Diagnosis: Low back pain three times a day with 100 mg TID SUMAtriptan Succinate 100 MG Oral Tablet 09/01/2020 - 2019 Provider: Donna Diaz NP Diagnosis: Migraine without aur a, intractable, with status migrainosus 100mg po x 1 dose for MENSAH, repeat x 1 aft er 2 hours, MDD 200MG, 20- 28 migraines /month Percocet 10-325 MG Oral Tablet 09/01/2020 - 09/30/2020 Provi danita: Donna Diaz CUSTOMER SUCCESS INTERN Diagnosis: Chronic pain syndrom e one tab every 4-6 hours as needed , MDD #6 Metoprolol Succinate ER 100 MG Oral Tablet Extended Re lease 24 Hour 08/02/2020 - 09/30/2020 Provider: Donna Diaz CUSTOMER SUCCESS INTERN Diagnosis: Migraine w/o aura, n ot intractable, w/o status migrainosus 1 every day RAISED FROM 50 MG QD Percocet 10-325 MG Oral Tablet 08/02/2020 - 09/01/2020 Provi danita: Donna Diaz NP Diagnosis: Chronic pain syndrom e one tab every 4-6 hours as needed , MDD 6 Ajovy 225 MG/1.5ML Subcutaneous Solution Prefilled Syr cat 08/02/2020 - 11/28/2020 Provider: Donna Diaz NP Diagnosis: Migraine with [...] Oral Tablet 05/02/2020 - 2019 Provider: Monica aRshid MD Diagnosis: Migraine without aur a, intractable, [...] MG Oral Capsule 10/19/2019 - 01/05/2020 Provi dainta: Monica Rashid MD Diagnosis: Low back pain [...] Ondansetron 4MG Oral Tablet Disintegrating 05/26/2019 - 12/2018 Provider: Monica Rashid MD Diagnosis: Nausea 1 [...] Tablet 03/19/2019 - 03/19/2019 Provid er: Monica Rasihd MD Diagnosis: Other chronic pain 1 every [...] Tablet 02/03/2018 - 03/03/2018 Provid er: Kellie Pabon Diagnosis: Other chronic pain 1 every 4 - 6 hours as needed MDD: 6 TABS Breo Ellipta 200-25MCG/INH Inhalation Aerosol Powder B reath Activated 02/03/2018 - 02/03/2018 Provider: Kellie Pabon Diagnosis: Other asthma 1 every day ProAir [...] 11/04/2017 - 12/02/2017 Provid er: Kellie Olson INDEPENDENT INSURANCE ADJUSTER Diagnosis: Other chronic pain 1 every 4 - 6 hours as needed MDD: 6 TABS Advair Diskus 250-50MCG/DOSE Inhalation Aerosol Powder Breath Activated 10/07/2017 - 01/02/2018 Provider: Kellie Olson INDEPENDENT INSURANCE ADJUSTER Diagnosis: Other emphysema 1 PUFF PO BID Folic Acid 1MG Oral Tablet 10/07/2017 - 01/02/2018 Provider: Kellie Olson INDEPENDENT INSURANCE ADJUSTER Diagnosis: Other folate deficie ncy anemias 1 tab po QD Gabapentin 800MG Oral Tablet 10/07/2017 - 01/02/2018 Provide r: Kellie Olson INDEPENDENT INSURANCE ADJUSTER Diagnosis: Low back pain Three times a day FROM 400 MG PO TID Percocet 10-325MG Oral Tablet 10/07/2017 - 11/04/2017 Provid er: Kellie Olson INDEPENDENT INSURANCE ADJUSTER Diagnosis: Other chronic pain 1 every 4 - 6 hours as needed MDD: 6 TABS Percocet 10-325MG Oral Tablet 09/05/2017 - 11/04/2017 Provid er: Monica Rashid MD Diagnosis: Other chronic pain 1 every 4 - 6 hours as needed MDD: 6 TABS Percocet 10-325MG Oral Tablet 2017 - 09/05/2017 Provid er: Kellie Olson INDEPENDENT INSURANCE ADJUSTER Diagnosis: Other chronic pain 1 every 4 - 6 hours as needed MDD: 6 TABS Percocet 10-325MG Oral Tablet 07/11/2017 - 2017 Provid er: Monica Rashid MD Diagnosis: Other chronic pain 1 every 4 - 6 hours as needed MDD: 6 TABS Gabapentin 800MG Oral Tablet 07/11/2017 - 10/07/2017 Provide r: Monica Rahsid MD Diagnosis: Low back pain Three times [...] Oral Tablet 04/08/2017 - 04/11/2017 Provid er: Kellieyumiko Olson INDEPENDENT INSURANCE ADJUSTER Diagnosis: Low back pain 1 every 4 - 6 hours as needed MDD: 6 TAB S ( ins. will only allow 7 day supply at a time) Percocet 10-325MG Oral Tablet 04/08/2017 - 04/08/2017 Provid er: Kellie Olson INDEPENDENT INSURANCE ADJUSTER Diagnosis: Low back pain 1 every 4 - 6 hours as needed MDD: 6 TABS Gabapentin 400MG Oral Capsule 04/08/2017 - 05/07/2017 Provid er: Kellie Olson INDEPENDENT INSURANCE ADJUSTER Diagnosis: Foot drop, left foot Three times a day ProAir HFA 108 (90 Base)MCG/ACT Inhalation Aerosol Toshia ution 04/03/2017 - 01/02/2018 Provider: Diagnosis: Lyrica 100MG Oral Capsule 04/03/2017 - 06/12/2017 Provider: Monica Rashid MD Diagnosis: Foot drop, left foot Three times a day Lyrica 100MG Oral Capsule 04/03/2017 - 04/04/2017 Provider: Diagnosis: TID Percocet 10-325MG Oral Tablet 04/03/2017 - 04/08/2017 Provid er: Diagnosis: Advair Diskus 100-50MCG/DOSE Inhalation Aerosol Powder Breath Activated 04/03/2017 - 05/07/2017 Provider: Diagnosis: Medications Administered Includes: Administered Medications in patient's chartNo Administered Medications Recorded Vital Signs Includes: Vital Signs from 06/21/2020 through 06/21/2021 Vital Name 06/21/2021 01:42P 05/24/2021 01:38P 04/26/2021 01:05P 03/27/2021 12:59P 02/21/2021 02:32P Height (in) 64 64 64 64 64 Blood Pressure Sitting R 114/70 BP Cuff Size Regular Regular Regular Pulse Rate-Sitting (bpm) 75 90 76 80 Respiration Rate (breaths/min) 18 24 20 24 Temp-Tympanic (F) 95.2 97.6 97.6 97.6 Weight (lb) 104 98 98 97 Body Mass Index (kg/m2) 17.9 16.8 16.8 1 6.6 Body Surface Area (m2) 1.48 1.44 1.44 1. 44 Oxygen Saturation (%) 98 99 99 95 Flow Rate (l/min) (None (Room Air)) (None (Room Air)) (None (Room Air)) FiO2 (%) 21 21 Blood Pressure Sitting L 118/62 100/60 118/68 Vital Name 01/24/2021 01:17P 12/29/2020 11:09A 11/28/2020 10:30A 10/28/2020 10:02A 09/30/2020 09:40A Height (in) 64 64 64 64 64 Blood Pressure Sitting R 120/68 114/74 BP Cuff Size Regular Regular Regular Regular Pediatric Pulse Rate-Sitting (bpm) 80 81 90 88 100 Respiration Rate (breaths/min) 20 24 20 20 20 Temp-Tympanic (F) 98.2 98.1 Weight (lb) 104 98 101 98 96 Body Mass Index (kg/m2) 17.9 16.8 17.3 16.8 1 6.5 Body Surface Area (m2) 1.48 1.44 1.46 1.44 1. 43 Oxygen Saturation (%) 99 99 98 97 97 Flow Rate (l/min) (None (Room Air)) (None (Room Air)) (None (Room Air)) FiO2 (%) 21 21 Blood Pressure Sitting L 102/62 110/70 100/58 Temp-Temporal 97.6 97.1 96.8 Vital Name 09/01/2020 10:51A 08/02/2020 04:07P 06/30/2020 01:24P Height (in) 64 64 64 Blood Pressure Sitting R 114/70 BP Cuff Size Regular Regular Regular Pulse Rate-Sitting (bpm) 68 70 68 Respiration Rate (breaths/min) 20 18 20 Temp-Tympanic (F) 97.7 Weight (lb) 103 100 102 Body Mass Index (kg/m2) 17.7 17.2 17.5 Body Surface Area (m2) 1.48 1.46 1.47 Oxygen Saturation (%) 95 99 97 Flow Rate (l/min) (None (Room Air)) (None (Room Air)) FiO2 (%) 21 21 Blood Pressure Sitting L 110/66 100/60 Temp-Temporal 97.1 96.6 Results Includes: Results from 06/21/2020 through 06/21/2021 GATS CULTURE (NEG STREP SCR) [facility] Ordered by Donna Diaz NP on 05/27/[address] [place] [address], [facility] Collected: 05/27/2021 Reported: 05/28/2021 06:18 tel :[phone] GATS CULTURE (NEG STREP SCR) See Note N (Normal) Note: FULL REPORT IN LAB NOTES (eCW and Medent).NEGATIVE FOR STREP PYOGENES (GROUP A) NOTES See Note None Note: Is patient on Antibiotics? N SOUR CE: THROAT Reviewed by Donna Diaz NP on 05/29/2021; All test results are final unless otherwise noted. Reported Physicians [facility] Ordered by Donna Diaz NP on 05/27/[address] [place] [address], [facility] Collected: 05/27/2021 Reported: 05/28/2021 06:18 tel :[phone] Reported Physicians See Note None Note: Reported Physicians:Ordering: Tesha Barajas [phone]: Anthony Ortega To: Anthony Ortega To: Monica Rashid Reviewed by Donna Diaz NP on 05/29/2021; All test results are final unless otherwise noted. CHI STREP A [facility] Ordered by Donna Diaz NP on 05/27/[address] [place] [address], [id number] Collected: 05/27/2021 Reported: 05/27/2021 12:08 tel :[phone] CHI STREP A NEGATIVE (NEGATIVE) N (Normal) Reviewed by Donna Diaz CUSTOMER SUCCESS INTERN on 05/29/2021; All test results are final unless otherwise noted. Reported Physicians [facility] Ordered by Donna Diaz CUSTOMER SUCCESS INTERN on 05/27/2021 [address] [place], [address] Collected: 05/27/2021 Reported: 05/27/2021 12:08 tel :[phone] Reported Physicians See Note None Note: Reported Physicians:Ordering: Rajni Bales [id number], Tesha Monaeending: Anthony Ortega To: Anthony Ortega To: Monica Rashid Reviewed by Donna Diaz CUSTOMER SUCCESS INTERN on 05/29/2021; All test results are final unless otherwise noted. MEDWATCH TOXASSURE SELECT 13 [facility] Ordered by Monica Rashid MD on 03/27/[address] [place] [address], [address] Collected: 03/27/2021 Reported: 04/03/2021 06:26 tel : Summary Report (Summary) FINAL None Note: TOXASSURE [...] clinical consultation, please call . Responsible Observer: (eliazar) PDF . None Note: Responsible Observer: (rfl) Reviewed by Monica Rashid MD on 2020; All test results are final unless otherwise noted. Reported Physicians [facility] Ordered by Monica Rashid MD on 03/27/[address] [place] [address], [address] Collected: 03/27/2021 Reported: 04/03/2021 06:26 tel :[phone] Reported Physicians See Note None Note: Reported Physicians:Ordering: Monica Dominguez AAttending: MONICA RASHIDReferring: MONICA RASHIDConsulting: Eric RASHID To: Monica Rashid Reviewed by Monica Rashid MD on 2020; All test results are final unless otherwise noted. CHI COVID ANTIGEN [facility] Ordered by Donna Diaz NP on 03/14/[address] [place] [address], [address] Collected: 03/14/2021 Reported: 03/14/2021 22:14 tel :[phone] CHI COVID ANTIGEN NEGATIVE (NEGATIVE) N (Normal) [...] are final unless otherwise noted. Reported Physicians [facility] Ordered by Donna Diaz NP on 03/14/[address] [place] [address], [address] Collected: 03/14/2021 Reported: 03/14/2021 22:14 tel :[phone] Reported Physicians See Note None Note: Reported Physicians:Ordering: JACQUIE CANNON [id number], ATUL Kelsey,Attending: Alfonzo RIVERA To: Alfonzo RIVERA To: Monica Rashid Reviewed by Donna Diaz NP on 03/19/2021; All test results are final unless otherwise noted. [facility] 2019 [facility] by Senecalni Diaz NP on 03/14/[address] [place] [address], [address] Collected: 03/14/2021 Reported: 03/16/2021 12:30 tel :[phone] CORONAVIRUS 2019 NASOPHARYGEAL See Note None Note: ASSAY INFORMATION: Real Time RT-PC RNOTE: The COVID-19 assay has been cleared by the U.S. Food and DrugAdministration under the Emergency Use Authorization (EUA). [email or web address] and [facility] are designated as high complexity laboratories by theClinical Laboratory Improvement Amendments of 1988(CLIA) and are qualified toperform this test.Not Detected Reviewed by Donna Diaz NP on 03/19/2021; All test results are final unless otherwise noted. Reported Physicians [facility] Ordered by Donna Diaz NP on 03/14/[address] [place] [address], [id number] Collected: 03/14/2021 Reported: 03/16/2021 12:30 tel :[phone] Reported Physicians See Note None Note: Reported Physicians:Ordering: KASI SEO [id number]: Alfonzo RIVERA To: Alfonzo RIVERA To: Hemant DALTON To: Monica Rashid Reviewed by Donna Diaz NP on 03/19/2021; All test results are final unless otherwise noted. CBC WITH DIFFERENTIAL [facility] Ordered by Donna Diaz NP on 02/18/[address] [place] [address], [id number] Collected: 02/18/2021 Reported: 02/18/2021 16:05 tel :[phone] WHITE BLOOD COUNT 3.7 3/uL (4.0-10.0) L [...] are final unless otherwise noted. Reported Physicians [facility] Ordered by Donna Diaz NP on 02/18/[address] [place] [address], [address] Collected: 02/18/2021 Reported: 02/18/2021 16:05 tel : Reported Physicians See Note None Note: Reported Physicians:Ordering: Barbie Sarkar [phone]: Alfonso Mckeon To: Alfonso Mckeon To: Monica Rashid Reviewed by Donna Diaz NP on 02/22/2021; All test results are final unless otherwise noted. BASIC METABOLIC PROFILE [facility] Ordered by Donna Diaz NP on 02/18/[address] [place] [address], [id number] Collected: 02/18/2021 Reported: 02/18/2021 16:36 tel :[phone] GLUCOSE, FASTING 85 MG/DL (70-100) N (Normal) [...] Little GFR Left ESRD GFR <15 on MOSQUITO SPRAYER SODIUM LEVEL 140 MEQ/L (136-145) N (Normal) POTASSIUM SERUM 4.1 MEQ/L (3.5-5.1) N (Normal) CHLORIDE LEVEL 106 MEQ/L (98-107) N (Normal) CARBON DIOXIDE LEVEL 31 MEQ/L (21-32) N (Normal) ANION GAP 3 MEQ/L (8-16) L (Low) CALCIUM LEVEL 9.2 MG/DL (8.5-10.1) N (Normal) Reviewed by Donna Diaz NP on 02/22/2021; All test results are final unless otherwise noted. Reported Physicians [facility] Ordered by Donna Diaz NP on 02/18/[address] [place] [address], [address] Collected: 02/18/2021 Reported: 02/18/2021 16:36 tel :[phone] Reported Physicians See Note None Note: Reported Physicians:Ordering: Barbie Sarkar [phone]: Alfonso Mckeon To: Alfonso Mckeon To: Monica Rashid Reviewed by Donna Diaz NP on 02/22/2021; All test results are final unless otherwise noted. [facility] Ordered by Donna Diaz NP on 02/18/[address] [place] [address], [address] Collected: 02/18/2021 Reported: 02/18/2021 16:36 tel :[phone] LIPASE 74 U/L (73-393) N (Normal) Reviewed by Donna Diaz NP on 02/23/2021; All test results are final unless otherwise noted. Reported Physicians [facility] Ordered by Donna Diaz NP on 02/18/[address] [place] [address], [facility] Collected: 02/18/2021 Reported: 02/18/2021 16:36 tel :[phone] Reported Physicians See Note None Note: Reported Physicians:Ordering: Barbie Sarkar [id number]: Alfonso Mckeon To: Alfonso Mckeon To: Monica Rashid Reviewed by Donna Diaz NP on 02/23/2021; All test results are final unless otherwise noted. LIVER PROFILE [facility] Ordered by Donna Diaz NP on 02/18/[address] [place] [address], [address] Collected: 02/18/2021 Reported: 02/18/2021 16:36 tel :[phone] AST/SGOT 14 U/L (7-37) N (Normal) ALT/SGPT [...] are final unless otherwise noted. Reported Physicians [facility] Ordered by Donna Diaz NP on 02/18/[address] [place] [address], [id number] Collected: 02/18/2021 Reported: 02/18/2021 16:36 tel :[phone] Reported Physicians See Note None Note: Reported Physicians:Ordering: Barbie Sarkar [phone] MDAttending: Alfonso Mckeon To: Alfonso Mckeon To: Monica Rashid Reviewed by Donna Diaz NP on 02/23/2021; All test results are final unless otherwise noted. HCG SERUM QUALITATIVE [facility] Ordered by Donna Diaz NP on 02/18/[address] [place] [address], [address] Collected: 02/18/2021 Reported: 02/18/2021 16:36 tel :[phone] HCG, SERUM QUALITATIVE NEGATIVE (NEGATIVE) N (Normal) Reviewed by Donna Diaz NP on 02/23/2021; All test results are final unless otherwise noted. Reported Physicians [facility] Ordered by Donna Diaz NP on 02/18/[address] [place] [address], [address] Collected: 02/18/2021 Reported: 02/18/2021 16:36 tel :[phone] Reported Physicians See Note None Note: Reported Physicians:Ordering: Barbie Sarkar [phone] MDAttending: Alfonso Mckeon To: Alfonso Mckeon To: Monica Rashid Reviewed by Donna Diaz CUSTOMER SUCCESS INTERN on 02/23/2021; All test results are final unless otherwise noted. CORONAVIRUS 2019 NASOPHARYGEAL [facility] Ordered by Monica Rashid MD on 11/01/[address] [place] [address], [address] Collected: 11/01/2020 Reported: 11/04/2020 11:16 tel :[phone] CORONAVIRUS 2019 NASOPHARYGEAL See Note None Note: [...] SARS-CoV-2 virusand/or diagnosis of COVID-19 infection under [id number](b)(1) of the Act, 21 U.S.C. 360bbb-3(b) (1), [...] detec antonia) result in this assay.Performed at: [facility], [place], [place] [id number] Director: Denise Giraldo PhD, Phone: [phone] Detected Reviewed by Monica Rashid MD on 2019; All test results are final unless otherwise noted. Reported Physicians [facility] Ordered by Monica Rashid MD on 11/01/2020 [address] [place], [address] Collected: 11/01/2020 Reported: 11/04/2020 11:16 tel : Reported Physicians See Note None Note: Reported Physicians:Ordering: GEOVANI REYES [phone]: DAMIR THIBODEAUXCopmichelle To: JESSIE THIBODEAUXUECopmichelle To: Loraine RASMUSSEN To: Monica Rashid Reviewed by Monica Rashid MD on 2019; All test results are final unless otherwise noted. D-DIMER [facility] Ordered by Donna Diaz NP on 10/28/[address] [place] [address], [address] Collected: 10/28/2020 Reported: 10/28/2020 12:08 tel : D-DIMER QUANT <0.27 ug/mL (0.27 - 0.50) None Note: Responsible Observer: (SJR) Reviewed by Donna Diaz NP on 11/01/2020; All test results are final unless otherwise noted. Reported Physicians [facility] Ordered by Donna Diaz CUSTOMER SUCCESS INTERN on 10/28/[address] [place] [address], [address] Collected: 10/28/2020 Reported: 10/28/2020 12:08 tel :[phone] Reported Physicians See Note None Note: Reported Physicians:Ordering: DONNA TOSCANOAttending: DONNA DIAZConsulting: TOREY RASHIDYNCopy To: Monica Rashid Reviewed by Donna Diaz CUSTOMER SUCCESS INTERN on 11/01/2020; All test results are final unless otherwise noted. TROPONIN T [facility] Ordered by Donna Diaz CUSTOMER SUCCESS INTERN on 10/28/[address] [place] [address], [address] Collected: 10/28/2020 Reported: 10/28/2020 12:25 tel :[phone] TROPONIN T <0.01 NG/ML (0.00 - 0.10) None Note: TROPONIN T0.1 ng/ml Recommended as the clinical threshold value forTroponin T.Responsible Observer: (TAD) Reviewed by Donna Diaz NP on 11/01/2020; All test results are final unless otherwise noted. Reported Physicians [facility] Ordered by Donna Diaz CUSTOMER SUCCESS INTERN on 10/28/[address] [place] [address], [address] Collected: 10/28/2020 Reported: 10/28/2020 12:25 tel :[phone] Reported Physicians See Note None Note: Reported Physicians:Ordering: DONNA TOSCANOAttending: DONNA DIAZConsulting: MONICA RASHIDCopmichelle To: Monica Rashid Reviewed by Donna Diaz CUSTOMER SUCCESS INTERN on 11/01/2020; All test results are final unless otherwise noted. PRO-BNP [facility] Ordered by Donna Diaz CUSTOMER SUCCESS INTERN on 10/28/[address] [place] [address], [address] Collected: 10/28/2020 Reported: 10/28/2020 12:34 tel :[phone] BNP 133 PG/ML (0 - 125) H (High) Note: Responsible Observer: (TAD) Reviewed by Donna Diaz NP on 11/01/2020; All test results are final unless otherwise noted. Reported Physicians [facility] Ordered by Donna Diaz CUSTOMER SUCCESS INTERN on 10/28/[address] [place] [address], [address] Collected: 10/28/2020 Reported: 10/28/2020 12:34 tel :[phone] Reported Physicians See Note None Note: Reported Physicians:Ordering: DONNA TOSCANOAttending: DONNA DIAZConsulting: MONICA RASHIDCopmichelle To: Monica Rashid Reviewed by Donna Diaz CUSTOMER SUCCESS INTERN on 11/01/2020; All test results are final unless otherwise noted. DRUG SCREEN URINE [facility] Ordered by Monica Rashid MD on 06/30/[address] [place] [address], [address] Collected: 06/30/2020 Reported: 06/30/2020 15:50 tel :[phone] AMPHETAMINES NEGATIVE (NORMAL: NEGATIVE) None Note: Responsible Observer: (TAD) BARBITURATES NEGATIVE (NORMAL: NEGATIVE) None Note: Responsible Observer: (TAD) BENZO NEGATIVE (NORMAL: NEGATIVE) None Note: Responsible Observer: (TAD) COCAINE NEGATIVE (NORMAL: NEGATIVE) None Note: Responsible Observer: (TAD) DRUG SCREEN URINE See Note None Note: URINE DRUG SCREENResponsible O bserver: (TAD) OPIATES NEGATIVE (NORMAL: NEGATIVE) None Note: Responsible Observer: (TAD) PCP NEGATIVE (NORMAL: NEGATIVE) None Note: BLDoURINE DRUG SCREEN INTERPRETATIONBLDx THE CUTOFFF LEVELS FOR DETECTION ARE FOLLOWS: AMPHETAMINES 1000 ng/ml BARBITUARATES 200 ng/ml BENZODIAZEPINES 100 ng/ml THC 50 ng/ml PHENCYCLIDINE 25 ng/ml OPIATES 300 ng/ml COCAINE 300 ng/ml ALL POSITIVES ARE CONSIDERED PRESUMPTIVE POSITIVE CONFIRMATION WILL BE PERFORMED AT PHYSICIAN REQUEST.Responsible Observer: (TAD) THC NEGATIVE (NORMAL: NEGATIVE) None Note: Responsible Observer: (TAD) Reviewed by Monica Rashid MD on 2019; All test results are final unless otherwise noted. Reported Physicians [facility] Ordered by Monica Rashid MD on 06/30/[address] [place] [address], [address] Collected: 06/30/2020 Reported: 06/30/2020 15:50 tel :[phone] Reported Physicians See Note None Note: Reported Physicians:Ordering: Monica Dominguez AAttending: MONICA RASHIDReferring: MONICA RASHIDConsulting: NON, STAFFCopy To: Monica Rashid Reviewed by Monica Rashid MD on 2019; All test results are final unless otherwise noted. PAIN MANAGEMENT 13 DRUG [facility] Ordered by Monica Rashid MD on 06/30/[address] [place] [address], [facility] Collected: 06/30/2020 Reported: 07/06/2020 10:32 tel : Meperidine Screen, Urine Negative ng/mL (Gaccwl=354) None Note: This test was developed and its pe rformance characteristicsdetermined by [facility]. It has not been cleared or approvedby the Food and Drug Administration.Responsible Observer: (rfl) Please Note: COMMENT None Note: Drug-test results should be interp reted in the context of clinicalinformation. Patient metabolic variables, specific drug chemistry, andspecimen characteristics can affect test outcome. Technicalconsultation is available if a test result is inconsistent with anexpected outcome. (email- [email or web address] or call [phone])Drug brands, if listed herein, are trademarks of their respectiveowners.Responsible Observer: (rfl) Methadone Screen, Urine Negative ng/mL (Pfhmny=114) None Note: Responsible Observer: (rfl) Oxycodone/Oxymorphone,Urine See Final Results ng/mL (Xvrxto=661) None Note: Test includes Oxycodone and Oxymor phoneResponsible Observer: (rfl) Propoxyphene Screen,Urine Negative ng/mL (Fpcsfg=706) None Note: Responsible Observer: (rfl) Opiate Screen, Urine See Final Results ng/mL (Agldtx=253) None Note: Opiate test includes Codeine, Morp michelle, Hydromorphone, Hydrocodone.Responsible Observer: (rfl) Amphetamines Screen,Urine Negative ng/mL (Mfiyop=5561) None Note: Responsible Observer: (rfl) Barbiturates Screen,Urine Negative ng/mL (Rlxknf=391) None Note: Responsible Observer: (rfl) Benzodiazepines Screen,Urine Negative ng/mL (Wikxmb=003) None Note: Responsible Observer: (rfl) Cannabinoid Screen, Urine Negative ng/mL (Cutoff=20) None Note: Responsible Observer: (rfl) Cocaine (Metab.) Screen,Urine Negative ng/mL (Qwpasw=985) None Note: Responsible Observer: (rfl) Phencyclidine Screen,Urine Negative ng/mL (Cutoff=25) None Note: Responsible Observer: (rfl) Opiates Negative ng/mL (Eltamq=227) None Note: Opiate test includes Codeine, Morp michelle, Hydromorphone, Hydrocodone.Responsible Observer: (rfl) Tramadol Screen, Urine Negative ng/mL (Rnflyg=520) None Note: Responsible Observer: (rfl) Fentanyl, Urine Negative pg/mL (Joibuu=2747) None Note: Test includes Fentanyl and Norfent anylThis test was developed and its performance characteristicsdetermined by [facility]. It has not been cleared or approvedby the Food and Drug Administration.Responsible Observer: (rfl) Oxycodone/Oxymorph Positive (Nlxlfh=393) A (Abnormal) Note: Test includes Oxycodone and Oxymor phoneResponsible Observer: (rfl) Oxycodone Positive A (Abnormal) Note: Responsible Observer: (rfl) Oxycodone Confirm 8344 ng/mL (Biatoe=954) None Note: Oxycodone detected; this finding i s consistent with use of medicationsthat include Oxycontin, Percodan, Percocet, Tylox, or genericformulations. Drugs listed are fraud representative of common sources of thecompound detected and are not intended to include all possiblesources.Responsible Observer: (rfl) Oxymorphone Comment: None Note: Invalid Result: LC/MS/MS Interfere nceResponsible Observer: (rfl) Oxymorphone Confirm WILL FOLLOW None Note: Responsible Observer: (rfl) Creatinine, Urine 177.1 mg/dL (20.0-300.0) None Note: Responsible Observer: (rfl) Specific Odem 1.026 NA None Note: Responsible Observer: (rfl) pH, Urine 5.5 NA (4.5-8.9) None Note: Responsible Observer: (rfl) Reviewed by Monica Rashid MD on 2019; All test results are final unless otherwise noted. Reported Physicians [facility] Ordered by Monica Rsahid MD on 06/30/[address] [place] [address], [address] Collected: 06/30/2020 Reported: 07/06/2020 10:32 tel : Reported Physicians See Note None Note: Reported Physicians:Ordering: Monica Dominguez AAttending: MONICA RASHIDReferring: MONICA RASHIDConsulting: NON, STAFFCopy To: Monica Rashid Reviewed by Monica Rashid MD on 2019; All test results are final unless otherwise noted. History of Present Illness History of Present Illness not supported for this document typeNo History of Present Illness Recorded Social History Description Last Updated Social history unchanged 06/21/2021 ~QUIT WORKING MARCH 2021 "SO I COULD [...] Procedures and Surgical History Includes: Procedures from 06/21/2020 through 06/21/2021No Procedures For Specified Dates. No Surgical History Recorded Medical History Includes: Medical History in patient's chart Description Last Updated [facility] 09/29/19 10/19/2019 No history of coronary artery [...] Right Arm Complete (Admin istered) FAMILY MEDICINE YFN Note: manufactured by [employer] usvaccination information sheet given Influenza,NOS 2 09/26/2019 Complete (Reported) Pat ient Influenza,NOS 3 03/27/2021 Complete (Refus ed - Patient objection) FAMILY MEDICINE YFN PCV (Pneumovax 23) ages 2+ 1 09/05/2017 Complete (Refused - Patient objection) [facility] 1 09/05/2017 Complete (Refused - Patient objection) [facility] Allergies Includes: Active, inactive, and resolved Allergies Substance Type Reaction Onset Date - Time Resolved Date - Ti me Status Topamax Allergy 04/03/2017 - 12:00AM Acti ve Keflex Allergy Skin Rashes, Hives 04/03/2017 - 12:00AM Active Dilaudid Allergy 04/03/2017 - 12:00AM Acti ve Amitriptyline HCl Allergy Increased BP and Pulse 04/03/2017 - 12:0 0AM Active Encounters Includes: Encounters from 06/21/2020 through 06/21/2021 Encounter Provider Location Date Check-In Time Check-Out Time D iagnosis STANDARD OV Donna Ameena Diaz NP [facility] C 06/21/2021 1:35PM 05/24/2021 11:59PM Chronic Pain, Nausea [facility] 1:29PM 2:02PM Chronic Pain, Migraine Heada brian STANDARD OV Monica Rashid MD Family Medicine [facility], 021 1:04PM 1:30PM Chronic Pain, Nausea, Acquired Deformity - Foot Drop WRITE-IN (SAME DAY) Monica Rashid MD Family Medicine [facility], 03/27/2021 12:55PM 1:34PM Constipation, Classi c Migraine W/ Aura W/ Intractable Migraine with Status Migrainosus, Nicotine Dependence Uncomplicated, Chronic Pain WRITE-IN (SAME DAY) Monica Rashid MD Family Medicine [facility], 02/21/2021 2:30PM 3:21PM Common Migraine With out Aura Without Intractable Migraine, Nausea, Anemia Normochromic, Normocytic, Chronic Pain, Vaping Related Disorder EXTENDED VISIT Donna Diaz NP [facility], 01/24/2021 1:05PM 1:40PM Chronic [facility] 12/[facility]/2020 11:09AM 11:42AM Migraine Headache, Chronic P ain EXTENDED VISIT Donna Diaz NP [facility], 11/28/2020 10:28AM 11:07AM Psychogenic Formicat ion, Chronic Pain STANDARD OV Donna Ameena Diaz NP [facility] C 10/28/2020 9:52AM 10:32AM Atypical Chest Pain, Migrain e Headache, Chronic Pain ANNUAL PHYSICAL EXAM Donna Diaz NP [facility], 09/30/2020 9:38AM 10:37AM Routine History & Ph ysical Adult Without Abnormal Findings, Atypical Chest Pain EXTENDED VISIT Donna Diaz NP [facility], 09/01/2020 10:50AM 11:42AM Chronic Pain STANDARD OV Donna Bargerjoo Diaz NP [facility] 08/02/2020 4:01PM 4:46PM Chronic Pain STANDARD OV Monica Rashid MD [facility] 020 1:04PM 2:19PM Chronic Pain, Nicotine Dependence Contin uous Insurance Includes: Active Insurance Policies Plan Name Member ID Group # Subscriber Relationship Effective Da damaris 1 - [employer] [id number] DeleonGretchen ndekiara Advance Directives Includes: Current Advance DirectivesNo Advance Directives Recorded Health Concerns Includes: Active Health ConcernsNo Active Health Concerns Recorded Goals Includes: Active Goals refer to dr poe for foot concerns Added 07/11/2017 by Provider Interventions Includes: Interventions for active GoalsNo Interventions Recorded Evaluations & Outcomes Includes: Evaluations & Outcomes for active GoalsNo Outcomes Recorded
[2021-09-03] MEDS ORDERED: GABA-283 PO (14:54)
--- OUTSIDE RECORDS SUMMARY | 2021-09-03 14:54 | CCD ---
Author Author [facility] Organization [facility] Address Unknown Phone Unavailable Care Team Providers Care Biosecurity Officer Name Role Phone Adebayo Rashid MD Unavailable Unavailable Adebayo Rashid MD Unavailable Unavailable Adebayo Rashid MD Unavailable Unavailable Adebayo Rashid MD Unavailable Unavailable Adebayo Rashid MD Unavailable Unavailable Rachid, Adebayo Morrissey MD Unavailable Unavailable Rachid, Adebayo Morrissey MD Unavailable Unavailable Rachid, Adebayo Morrissey MD Unavailable Unavailable Rachid, Adebayo Morrissey MD Unavailable Unavailable Rachid, Adebayo Morrissey MD Unavailable Unavailable Rachid, Adebayo Morrissey MD Unavailable Unavailable Rachid, Adebayo Morrissey MD Unavailable Unavailable Rachid, Adebayo Morrissey MD Unavailable Unavailable Rachid, Adebayo Morrissey MD Unavailable Unavailable Rachid, Adebayo Morrissey MD Unavailable Unavailable Rachid, Adebayo Morrissey MD Unavailable Unavailable Rachid, Adebayo Morrissey MD Unavailable Unavailable Rachid, Adebayo Morrissey MD Unavailable Unavailable Rachid, Adebayo Morrissey MD Unavailable Unavailable Rachid, Adebayo Morrissey MD Unavailable Unavailable Rachid, Adebayo Morrissey MD Unavailable Unavailable Rachid, Adebayo Morrissey MD Unavailable Unavailable Rachid, Adebayo Morrissey MD Unavailable Unavailable Rachid, Adebayo Morrissey MD Unavailable Unavailable Rachid, Adebayo Morrissey MD Unavailable Unavailable Rachid, Adebayo Morrissey MD Unavailable Unavailable Rachid, Adebayo Morrissey MD Unavailable Unavailable Rachid, Adebayo Morrissey MD Unavailable Unavailable Rachid, Adebayo Morrissey MD Unavailable Unavailable Rachid, Adebayo Morrissey MD Unavailable Unavailable Rachid, Adebayo Morrissey MD Unavailable Unavailable Rachid, Adebayo Morrissey MD Unavailable Unavailable Rachid, Adebayo Morrissey MD Unavailable Unavailable Rachid, Adebayo Morrissey MD Unavailable Unavailable Rachid, Adebayo Morrissey MD Unavailable Unavailable Rachid, Adebayo Morrissey MD Unavailable Unavailable Rachid, Adebayo Morrissey MD Unavailable Unavailable Rachid, Adebayo Morrissey MD Unavailable Unavailable Rachid, Adebayo Morrissey MD Unavailable Unavailable Rachid, Adebayo Morrissey MD Unavailable Unavailable Rachid, Adebayo Morrissey MD Unavailable Unavailable Rachid, Adebayo Morrissey MD Unavailable Unavailable Rachid, Adebayo Morrissey MD Unavailable Unavailable Rachid, Adebayo Morrissey MD Unavailable Unavailable Rachid, Adebayo Morrissey MD Unavailable Unavailable Rachid, Adebayo Morrissey MD Unavailable Unavailable Rachid, Adebayo Morrissey MD Unavailable Unavailable Rachid, Adebayo Morrissey MD Unavailable Unavailable Rachid, Adebayo Morrissey MD Unavailable Unavailable Rachid, Adebayo Morrissey MD Unavailable Unavailable Rachid, Adebayo Morrissey MD Unavailable Unavailable Rachid, Adebayo Morrissey MD Unavailable Unavailable Rachid, Adebayo Morrissey MD Unavailable Unavailable Rachid, Adebayo Morrissey MD Unavailable Unavailable Rachid, Adebayo Morrissey MD Unavailable Unavailable Rachid, Adebayo Morrissey MD Unavailable Unavailable Rachid, Adebayo Morrissey MD Unavailable Unavailable Rachid, Adebayo Morrissey MD Unavailable Unavailable Rachid, Adebayo Morrissey MD Unavailable Unavailable Rachid, Adebayo Morrissey MD Unavailable Unavailable Rachid, Adebayo Morrissey MD Unavailable Unavailable Rachid, Adebayo Morrissey MD Unavailable Unavailable Rachid, Adebayo Morrissey MD Unavailable Unavailable Rachid, Adebayo Morrissey MD Unavailable Unavailable Rachid, Adebayo Morrissey MD Unavailable Unavailable Rachid, Adebayo Morrissey MD Unavailable Unavailable Rachid, Adebayo Morrissey MD Unavailable Unavailable Rachid, Adebayo Morrissey MD Unavailable Unavailable Rachid, Adebayo Morrissey MD Unavailable Unavailable Rachid, Adebayo Morrissey MD Unavailable Unavailable Rachid, Adebayo Morrissey MD Unavailable Unavailable Rachid, Adebayo Morrissey MD Unavailable Unavailable Rachid, Adebayo Morrissey MD Unavailable Unavailable Rachid, Adebayo Morrissey MD Unavailable Unavailable Rachid, Adebayo Morrissey MD Unavailable Unavailable Rachid, Adebayo Morrissey MD Unavailable Unavailable Rachid, Adebayo Morrissey MD Unavailable Unavailable Boo Mendoza MD Unavailable Unavailable Boo Mendoza MD Unavailable Unavailable Boo Mendoza MD Unavailable Unavailable Boo Mendoza MD Unavailable Unavailable Boo Mendoza MD Unavailable Unavailable Boo Mendoza MD Unavailable Unavailable Boo Mendoza MD Unavailable Unavailable Boo Mendoza MD Unavailable Unavailable Boo Mendoza MD Unavailable Unavailable Boo Mendoza MD Unavailable Unavailable Boo Mendoza MD Unavailable Unavailable Boo Mendoza MD Unavailable Unavailable Boo Mendoza MD Unavailable Unavailable Boo Mendoza MD Unavailable Unavailable Boo Mendoza MD Unavailable Unavailable Boo Mendoza MD Unavailable Unavailable Boo Mendoza MD Unavailable Unavailable Boo eMndoza MD Unavailable Unavailable Boo Mendoza MD Unavailable Unavailable Boo Mendoza MD Unavailable Unavailable Boo Mendoza MD Unavailable Unavailable Boo Mendoza MD Unavailable Unavailable Boo Mendoza MD Unavailable Unavailable Boo Mendoza MD Unavailable Unavailable Boo Mendoza MD Unavailable Unavailable Boo Mendoza MD Unavailable Unavailable Boo Mendoza MD Unavailable Unavailable Boo Mendoza MD Unavailable Unavailable Boo Mendoza MD Unavailable Unavailable Boo Mendoza MD Unavailable Unavailable Boo Mendoza MD Unavailable Unavailable Boo Mendoza MD Unavailable Unavailable Boo Mendoza MD Unavailable Unavailable Boo Mendoza MD Unavailable Unavailable Boo Mendoza MD Unavailable Unavailable Boo Mendoza MD Unavailable Unavailable Boo Mendoza MD Unavailable Unavailable Boo Mendoza MD Unavailable Unavailable Boo Mendoza MD Unavailable Unavailable Boo Mendoza MD Unavailable Unavailable Boo Mendoza MD Unavailable Unavailable Boo Mendoza MD Unavailable Unavailable Boo Mendoza MD Unavailable Unavailable Boo Mendoza MD Unavailable Unavailable Boo Mendoza MD Unavailable Unavailable TisBoo carpio MD Unavailable Unavailable TisBoo carpio MD Unavailable Unavailable TisBoo carpio MD Unavailable Unavailable TisBoo carpio MD Unavailable Unavailable TisBoo carpio MD Unavailable Unavailable TisBoo carpio MD Unavailable Unavailable Boo Mendoza MD Unavailable Unavailable Boo Mendoza MD Unavailable Unavailable Boo Mendoza MD Unavailable Unavailable Boo Mendoza MD Unavailable Unavailable Boo Mendoza MD Unavailable Unavailable Boo Mendoza MD Unavailable Unavailable Boo Mendoza MD Unavailable Unavailable Boo Mendoza MD Unavailable Unavailable Boo Mendoza MD Unavailable Unavailable Boo Mendoza MD Unavailable Unavailable Boo Mendoza MD Unavailable Unavailable Pako, Mariae [place] NAVIGATING OFFICER Unavailable Unavailable Pako, Mariae Donna NAVIGATING OFFICER Unavailable Unavailable Pako, Mariae Donna NAVIGATING OFFICER Unavailable Unavailable [place], Mariae Rosedale NAVIGATING OFFICER Unavailable Unavailable Pako, Mariae Donna NAVIGATING OFFICER Unavailable Unavailable Pako, Mariae Rosed[place] NAVIGATING OFFICER Unavailable Unavailable [place], Mariae Rosed[place] NAVIGATING OFFICER Unavailable Unavailable Pako, Mariae Donna NAVIGATING OFFICER Unavailable Unavailable Pako, Mariae Donna NAVIGATING OFFICER Unavailable Unavailable [place], Mariae Donna NAVIGATING OFFICER Unavailable Unavailable Pako, Mariae Donna NAVIGATING OFFICER Unavailable Unavailable Pako, [facility] NAVIGATING OFFICER Unavailable Unavailable Pako, [facility] NAVIGATING OFFICER Unavailable Unavailable Pako, Mariae Donna NAVIGATING OFFICER Unavailable Unavailable Pako, Mariae Rosedale NAVIGATING OFFICER Unavailable Unavailable [place], Mariae Donna NAVIGATING OFFICER Unavailable Unavailable [place], Mariae Donna NAVIGATING OFFICER Unavailable Unavailable Wesley, H Kellie NAVIGATING OFFICER Unavailable Unavailable Wesley, H Kellie NAVIGATING OFFICER Unavailable Unavailable Wesley, H Kellie NAVIGATING OFFICER Unavailable Unavailable Wesley, H Kellie NAVIGATING OFFICER Unavailable Unavailable Wesley, H Kellie NAVIGATING OFFICER Unavailable Unavailable Wesley, H Kellie NAVIGATING OFFICER Unavailable Unavailable Wesley, H Kellie NAVIGATING OFFICER Unavailable Unavailable Wesley, H Kellie NAVIGATING OFFICER Unavailable Unavailable Wesley, H Kellie NAVIGATING OFFICER Unavailable Unavailable Wesley, H Kellie NAVIGATING OFFICER Unavailable Unavailable Wesley, H Kellie NAVIGATING OFFICER Unavailable Unavailable Wesley, H Kellie NAVIGATING OFFICER Unavailable Unavailable Wesley, H Kellie NAVIGATING OFFICER Unavailable Unavailable Wesley, H Kellie NAVIGATING OFFICER Unavailable Unavailable Wesley, H Kellie NAVIGATING OFFICER Unavailable Unavailable Wesley, H Kellie NAVIGATING OFFICER Unavailable Unavailable Wesley, H Kellie NAVIGATING OFFICER Unavailable Unavailable Wesley, H Kellie NAVIGATING OFFICER Unavailable Unavailable Wesley, H Kellie NAVIGATING OFFICER Unavailable Unavailable Wesley, H Kellie NAVIGATING OFFICER Unavailable Unavailable Wesley, H Kellie NAVIGATING OFFICER Unavailable Unavailable Wesley, H Kellie NAVIGATING OFFICER Unavailable Unavailable Wesley, H Kellie NAVIGATING OFFICER Unavailable Unavailable Wesley, H Kellie NAVIGATING OFFICER Unavailable Unavailable Wesley, H Kellie NAVIGATING OFFICER Unavailable Unavailable Wesley, H Kellie NAVIGATING OFFICER Unavailable Unavailable Wesley, H Kellie NAVIGATING OFFICER Unavailable Unavailable Wesley, H Kellie NAVIGATING OFFICER Unavailable Unavailable Wesley, H Kellie NAVIGATING OFFICER Unavailable Unavailable Wesley, H Kellie NAVIGATING OFFICER Unavailable Unavailable Wesley, H Kellie NAVIGATING OFFICER Unavailable Unavailable Wesley, H Kellie NAVIGATING OFFICER Unavailable Unavailable Wesley, H Kellie NAVIGATING OFFICER Unavailable Unavailable Wesley, H Kellie NAVIGATING OFFICER Unavailable Unavailable Wesley, H Kellie NAVIGATING OFFICER Unavailable Unavailable Wesley, H Kellie NAVIGATING OFFICER Unavailable Unavailable Wesley, H Kellie NAVIGATING OFFICER Unavailable Unavailable Wesley, H Kellie NAVIGATING OFFICER Unavailable Unavailable Wesley, H Kellie NAVIGATING OFFICER Unavailable Unavailable Wesley, H Kellie NAVIGATING OFFICER Unavailable Unavailable Wesley, H Kellie NAVIGATING OFFICER Unavailable Unavailable Wesley, H Kellie NAVIGATING OFFICER Unavailable Unavailable Wesley, H Kellie NAVIGATING OFFICER Unavailable Unavailable Wesley, H Kellie NAVIGATING OFFICER Unavailable Unavailable Wesley, H Kellie NAVIGATING OFFICER Unavailable Unavailable Wesley, H Kellie NAVIGATING OFFICER Unavailable Unavailable Wesley, H Kellie NAVIGATING OFFICER Unavailable Unavailable Wesley, H Kellie NAVIGATING OFFICER Unavailable Unavailable Wesley, H Kellie NAVIGATING OFFICER Unavailable Unavailable Wesley, H Kellie NAVIGATING OFFICER Unavailable Unavailable Wesley, H Kellie NAVIGATING OFFICER Unavailable Unavailable Wesley, H Kellie NAVIGATING OFFICER Unavailable Unavailable Wesley, H Kellie NAVIGATING OFFICER Unavailable Unavailable Wesley, H Kellie NAVIGATING OFFICER Unavailable Unavailable Wesley, H Kellie NAVIGATING OFFICER Unavailable Unavailable Wesley, H Kellie NAVIGATING OFFICER Unavailable Unavailable Wesley, H Kellie NAVIGATING OFFICER Unavailable Unavailable Wesley, H Kellie NAVIGATING OFFICER Unavailable Unavailable Wesley, H Kellie NAVIGATING OFFICER Unavailable Unavailable Pako, Mariae Rosedale NAVIGATING OFFICER Unavailable Unavailable [place], Mariae Rosedale NAVIGATING OFFICER Unavailable Unavailable [place], Mariae Rosedale NAVIGATING OFFICER Unavailable Unavailable Pako, Mariae Rosedale NAVIGATING OFFICER Unavailable Unavailable [place], Mariae Donna NAVIGATING OFFICER Unavailable Unavailable Pako, Mariae Donna NAVIGATING OFFICER Unavailable Unavailable Pako, Mariae Donna NAVIGATING OFFICER Unavailable Unavailable [place], Mariae Donna NAVIGATING OFFICER Unavailable Unavailable Pako, Mariae Donna NAVIGATING OFFICER Unavailable Unavailable [place], Mariae Rosedale NAVIGATING OFFICER Unavailable Unavailable [place], Mariae Donna NAVIGATING OFFICER Unavailable Unavailable [place], Mariae Rosedale NAVIGATING OFFICER Unavailable Unavailable Pako, Mariae Rosedale NAVIGATING OFFICER Unavailable Unavailable [place], Mariae Donna NAVIGATING OFFICER Unavailable Unavailable Pako, Mariae Donna NAVIGATING OFFICER Unavailable Unavailable Pako, Mariae Rosedale NAVIGATING OFFICER Unavailable Unavailable Pako, Mariae Rosedale NAVIGATING OFFICER Unavailable Unavailable Rachid, Adebayo Morrissey MD Unavailable Unavailable Rachid, Adebayo Morrissey MD Unavailable Unavailable Rachid, Adebayo Morrissey MD Unavailable Unavailable Rachid, Adebayo Morrissey MD Unavailable Unavailable Rachid, Adebayo Morrissey MD Unavailable Unavailable Rachid, Adebayo Morrissey MD Unavailable Unavailable Rachid, Adebayo Morrissey MD Unavailable Unavailable Rachid, Adebayo Morrissey MD Unavailable Unavailable Rachid, Adebayo Morrissey MD Unavailable Unavailable Rachid, Adebayo Morrissey MD Unavailable Unavailable Rachid, Adebayo Morrissey MD Unavailable Unavailable Rachid, Adebayo Morrissey MD Unavailable Unavailable Rachid, Adebayo Morrissey MD Unavailable Unavailable Rachid, Adebayo Morrissey MD Unavailable Unavailable Rachid, Adebayo Morrissey MD Unavailable Unavailable Rachid, Adebayo Morrissey MD Unavailable Unavailable Rachid, Adebayo Morrissey MD Unavailable Unavailable Rachid, Adebayo Morrissey MD Unavailable Unavailable Rachid, Adebayo Morrissey MD Unavailable Unavailable Rachid, Adebayo Morrissey MD Unavailable Unavailable Rachid, Adebayo Morrissey MD Unavailable Unavailable Rachid, Adebayo Morrissey MD Unavailable Unavailable Rachid, Adebayo Morrissey MD Unavailable Unavailable Rachid, Adebayo Morrissey MD Unavailable Unavailable Rachid, Adebayo Morrissey MD Unavailable Unavailable Rachid, Adebayo Morrissey MD Unavailable Unavailable Rachid, Adebayo Morrissey MD Unavailable Unavailable Rachid, Adebayo Morrissey MD Unavailable Unavailable Rachid, Adebayo Morrissey MD Unavailable Unavailable Rachid, Adebayo Morrissey MD Unavailable Unavailable Rachid, Adebayo Morrissey MD Unavailable Unavailable Rachid, Adebayo Morrissey MD Unavailable Unavailable Rachid, Adebayo Morrissey MD Unavailable Unavailable Rachid, Adebayo Morrissey MD Unavailable Unavailable Rachid, Adebayo Morrissey MD Unavailable Unavailable Rachid, Adebayo Morrissey MD Unavailable Unavailable Rachid, Adebayo Morrissey MD Unavailable Unavailable Rachid, Adebayo Morrissey MD Unavailable Unavailable Rachid, Adebayo Morrissey MD Unavailable Unavailable Rachid, Adebayo Morrissey MD Unavailable Unavailable Rachid, Adebayo Morrissey MD Unavailable Unavailable Rachid, Adebayo Morrissey MD Unavailable Unavailable Rachid, Adebayo Morrissey MD Unavailable Unavailable Rachid, Adebayo Morrsisey MD Unavailable Unavailable Rachid, Adebayo Morrissey MD Unavailable Unavailable Rachid, Adebayo Morrissey MD Unavailable Unavailable Rachid, Adebayo Morrissey MD Unavailable Unavailable Rachid, C Yuni MD Unavailable Unavailable Rachid, C Yuni MD Unavailable Unavailable Rachid, C Yuni MD Unavailable Unavailable Rachid, C Yuni MD Unavailable Unavailable Rachid, C Yuni MD Unavailable Unavailable Rachid, C Yuin MD Unavailable Unavailable Rachid, C Yuni MD Unavailable Unavailable Rachid, C Yuni MD Unavailable Unavailable Rachid, C Yuni MD Unavailable Unavailable Rachid, C Yuni MD Unavailable Unavailable Rachid, C Yuni MD Unavailable Unavailable Rachid, C Yuni MD Unavailable Unavailable Rachid, C Yuni MD Unavailable Unavailable Rachid, C Yuni MD Unavailable Unavailable Rachid, C Yuni MD Unavailable Unavailable Rachid, C Yuni MD Unavailable Unavailable Rachid, C Yuni MD Unavailable Unavailable Rachid, C Yuni MD Unavailable Unavailable Rachid, C Yuni MD Unavailable Unavailable Rachid, C Yuni MD Unavailable Unavailable Rachid, C Yuni MD Unavailable Unavailable Rachid, C Yuni MD Unavailable Unavailable Rachid, C Yuni MD Unavailable Unavailable Rachid, C Yuni MD Unavailable Unavailable Rachid, C Yuni MD Unavailable Unavailable Rachid, C Yuni MD Unavailable Unavailable Rachid, C Yuni MD Unavailable Unavailable Rachid, C Yuni MD Unavailable Unavailable Rachid, C Yuni MD Unavailable Unavailable Rachid, C Yuni MD Unavailable Unavailable NON, PHYSICIAN STAFF Unavailable Unavailable Re-disclosure Warning The records that you are about to access may contain information from federally-assisted alcohol or drug abuse programs. If such information is present, then the following federally mandated warning applies: This information has been disclosed to you from records protected by federal confidentiality rules (42 CFR part 2). The federal rules prohibit you from making any further disclosure of this information unless further disclosure is expressly permitted by the written consent of the person to whom it pertains or as otherwise permitted by 42 CFR part 2. A general authorization for the release of medical or other information is NOT sufficient for this purpose. The Federal rules restrict any use of the information to criminally investigate or prosecute any alcohol or drug abuse patient.The records that you are about to access may contain highly sensitive health information, the redisclosure of which is protected by Article 27-F of the [place] State Public Health law. If you continue you may have access to information: Regarding HIV / AIDS; Provided by facilities licensed or operated by the [facility] Office of Mental Health; or Provided by the [facility] Office for People With Developmental Disabilities. If such information is present, then the following [facility] mandated warning applies: This information has been disclosed to you from confidential records which are protected by state law. State law prohibits you from making any further disclosure of this information without the specific written consent of the person to whom it pertains, or as otherwise permitted by law. Any unauthorized further disclosure in violation of state law may result in a fine or shelter sentence or both. A general authorization for the release of medical or other information is NOT sufficient authorization for further disc losure. Allergies and Adverse Reactions Type Description Substance Reaction Status Data Source(s ) Drug allergy LYRICA LYRICA [facility] Drug allergy DILAUDID DILAUDID [facility] Propensity to adverse reactions NEURONTIN NEURONTIN [facility] Propensity to adverse reactions KEFLEX KEFLEX [facility] Family History Family Member Name Family Member Gender Family Member Status Date o f Status Description Data Source(s) Unknown Unknown Problem MEDENT ([facility], ) Encounters Encounter Providers Location Date Indications Data Source(s ) <td ID="encounterTypeDescriptionID0">[facility]</td><td>Yuni Rashid MD</td><td>[facility]</td><td>04/26/2021</td><td>1:04PM</td><td>03/27/2021 11:59PM</td><td><content ID="encounterDiagnosisID0-0">Chronic Pain</content>, <content ID="encounterDiagnosisID0-1">Nausea</content>, <content ID="encounterDiagnosisID0-2">Acquired Deformity - Foot Drop</content> </td>Outpatient Attender: Yuni Rashid MD [facility] 04/26/2021 01:04:00 PM EDT - 03/27/2021 11:59:00 PM EDT NauseaChronic PainAcquired Deformity - Foot Drop [facility] Nausea Chronic Pain Acquired Deformity - Foot Drop Outpatient Attender: Yuni Archibald banda: Yuni Rashid MDConsultant: Yuni Rashid MD 03/27/2021 03:27:00 PM EDT - 03/27/2021 03:37:0 0 PM EDT [facility] Outpatient<td ID="encounterTypeDescripti onID1">WRITE-IN (SAME DAY)</td><td>Yuni Rashid MD</td><td>[facility]</td><td>03/27/2021</td><td>12:55PM</td><td>1:34PM</td><td><content ID="encounterDiagnosisID1-0">Constipation</content>, <content ID="encounterDiagnosisID1-1">Classic Migraine W/ Aura W/ Intractable Migraine with Status Migrainosus</content>, <content ID="encounterDiagnosisID1- 2">Nicotine Dependence Uncomplicated</content>, <content ID="encounterDiagnosisID1-3">Chronic Pain</content></td> Attender: Yuni Rashid MD [facility] 03/27/2021 12:55:00 PM EDT - 03/27/2021 01:34:00 PM EDT Chronic PainNicotine Dependence Uncompli catedClassic Migraine W/ Aura W/ Intractable Migraine with Status MigrainosusConstipationChronic PainNicotine Dependence UncomplicatedClassic Migraine W/ Aura W/ Intractable Migraine with Status MigrainosusConstipation NGUYEN ([facility]) Chronic Pain Nicotine Dependence Uncomplicated Classic Migraine W/ Aura W/ Intractable Migraine with Status Migrainosus Constipation Chronic Pain Nicotine Dependence Uncomplicated Classic Migraine W/ Aura W/ Intractable Migraine with Status Migrainosus Constipation Outpatient<td ID="encounterTypeDescripti onID2">WRITE-IN (SAME DAY)</td><td>Yuni Rashid MD</td><td>[facility]</td><td>02/21/2021</td><td>2:30PM</td><td>3:21PM</td><td><content ID="encounterDiagnosisID2-0">Common Migraine Without Aura Without Intractable Migraine</content>, <content ID="encounterDiagnosisID2-1">Nausea</content>, <content ID="encounterDiagnosisID2-2">Anemia Normochromic, Normocytic</content>, <content ID="encounterDiagnosisID2-3">Chronic Pain</content>, <content ID="encounterDiagnosisID2-4">Vaping Related Disorder</content></td> Attender: Yuni Rashid MD [facility], 02/21/2021 02:30:00 PM EDT - 02/21/2021 03:21:00 PM EDT Vaping Related DisorderChronic PainAnemi a Normochromic, NormocyticNauseaCommon Migraine Without Aura Without Intractable MigraineVaping Related DisorderChronic PainAnemia Normochromic, NormocyticNausea Common Migraine Without Aura Without Intractable Migraine NGUYEN ([facility]) Vaping Related Disorder Chronic Pain Anemia Normochromic, Normocytic Nausea Common Migraine Without Aura Without Int ractable Migraine Vaping Related Disorder Chronic Pain Anemia Normochromic, Normocytic Nausea Common Migraine Without Aura Without Int ractable Migraine Outpatient<td ID="encounterTypeDescripti onID3">EXTENDED VISIT</td><td>Donna Diaz NP</td><td>[facility],</td><td>01/24/2021</td><td>1:05PM</td><td>1:40PM</td><td><content ID="encounterDiagnosisID3-0">Chronic Pain</content></td> Attender: Donna Diaz NP [facility], 01/24/2021 01:05:00 PM EST - 01/24/2021 01:40:00 PM EST Chronic PainChronic PainChronic Pain NGUYEN ([facility]) Chronic Pain Chronic Pain Chronic Pain Outpatient<td ID="encounterTypeDescripti onID4">STANDARD OV</td><td>Donna Diaz NP</td><td>[facility]</td><td>12/29/2020</td><td>11:09AM</td><td>11:42AM</td><td><content ID="encounterDiagnosisID4-0">Migraine Headache</content>, <content ID="encounterDiagnosisID4-1">Chronic Pain</content></td> Attender: Donna Diaz NP [facility] 12/29/2020 11:09:00 AM EST - 12/29/2020 11:42:00 AM EST Chronic PainMigraine HeadacheChronic Alexander nMigraine HeadacheChronic PainMigraine HeadacheChronic PainMigraine Headache ASSUMPTION ([facility]) Chronic Pain Migraine Headache Chronic Pain Migraine Headache Chronic Pain Migraine Headache Chronic Pain Migraine Headache <td ID="encounterTypeDescriptionID5">EXT ENDED VISIT</td><td>Donna Diaz NP</td><td>[facility]</td><td>11/28/2020</td><td>10:28AM</td><td>11:07AM</td><td><content ID="encounterDiagnosisID5-0">Psychogenic Formication</content>, <content ID="encounterDiagnosisID5-1">Chronic Pain</content></td>Outpatient Attender: Donna Diaz NP [facility] 11/28/2020 10:28:00 AM EST - 11/28/2020 11:07:00 AM EST Chronic PainPsychogenic FormicationChron ic PainPsychogenic FormicationChronic PainPsychogenic FormicationChronic PainPsychogenic Formication NGUYEN ([facility]) Chronic Pain Psychogenic Formication Chronic Pain Psychogenic Formication Chronic Pain Psychogenic Formication Chronic Pain Psychogenic Formication Recurring Patient Attender: Joao Mendoza MDReferrer: Kellie Olson NP 11/14/2020 11:16:00 AM EST [facility] Outpatient Attender: Donna MANUEL ttender: Yuni Rashid MDConsultant: Yuni Rashid MD 10/28/2020 11:14:00 AM EST - 10/28/2020 12:14:0 0 PM EST [facility] <td ID="encounterTypeDescriptionID6">STA NDARD OV</td><td>Donna Diaz NP</td><td>[facility]</td><td>10/28/2020</td><td>9:52AM</td><td>10:32AM</td><td><content ID="encounterDiagnosisID6-0">Atypical Chest Pain</content>, <content ID="encounterDiagnosisID6-1">Migraine Headache</content>, <content ID="encounterDiagnosisID6-2">Chronic Pain</content></td>Outpatient Attender: Donna Diaz NP [facility], 10/28/2020 09:52:00 AM EST - 10/28/2020 10:32:00 AM EST Chronic PainMigraine HeadacheChronic Alexander nMigraine HeadacheChronic PainMigraine HeadacheChronic PainMigraine HeadacheAtypical Chest PainAtypical Chest PainAtypical Chest PainAtypical Chest Pain ASSUMPTION ([facility]) Chronic Pain Migraine Headache Chronic Pain Migraine Headache Chronic Pain Migraine Headache Chronic Pain Migraine Headache Atypical Chest Pain Atypical Chest Pain Atypical Chest Pain Atypical Chest Pain Outpatient<td ID="encounterTypeDescripti onID7">ANNUAL PHYSICAL EXAM</td><td>Donna Diaz NP</td><td>[facility]</td><td>09/30/2020</td><td>9:38AM</td><td>10:37AM</td><td><content ID="encounterDiagnosisID7-0">Routine History & Physical Adult Without Abnormal Findings</content>, <content ID="encounterDiagnosisID7-1">Atypical Chest Pain</content></td> Attender: Donna Diaz NP [facility], 09/30/2020 09:38:00 AM EST - 09/30/2020 10:37:00 AM EST Atypical Chest PainAtypical Chest PainAtypical Chest PainAtypical Chest PainAtypical Chest PainRoutine History & Physical Adult Without Abnormal FindingsRoutine History & Physical Adult Without Abnormal FindingsRoutine History & Physical Adult Without Abnormal FindingsRoutine History & Physical Adult Without Abnormal FindingsRoutine History & Physical Adult Without Abnormal Findings NGUYEN ([facility]) Atypical Chest Pain Atypical Chest Pain Atypical Chest Pain Atypical Chest Pain Atypical Chest Pain Routine History & Physical Adult Without Abnormal Findings Routine History & Physical Adult Without Abnormal Findings Routine History & Physical Adult Without Abnormal Findings Routine History & Physical Adult Without Abnormal Findings Routine History & Physical Adult Without Abnormal Findings Outpatient<td ID="encounterTypeDescripti onID8">EXTENDED VISIT</td><td>Donna Diaz NP</td><td>[facility]</td><td>09/01/2020</td><td>10:50AM</td><td>11:42AM</td><td><content ID="encounterDiagnosisID8-0">Chronic Pain</content></td> Attender: Donna Diaz NP [facility], 09/01/2020 10:50:00 AM EDT - 09/01/2020 11:42:00 AM EDT Chronic PainChronic PainChronic PainChro susan PainChronic PainChronic Pain ASSUMPTION ([facility]) Chronic Pain Chronic Pain Chronic Pain Chronic Pain Chronic Pain Chronic Pain <td ID="encounterTypeDescriptionID9">STA NDARD OV</td><td>Donna Diaz NP</td><td>[facility]</td><td>08/02/2020</td><td>4:01PM</td><td>4:46PM</td><td><content ID="encounterDiagnosisID9-0">Chronic Pain</content></td>Outpatient Attender: Donna Diaz NP [facility] 08/02/2020 04:01:00 PM EDT - 08/02/2020 04:46:00 PM EDT Chronic PainChronic PainChronic PainChro susan PainChronic PainChronic PainChronic Pain [facility]) Chronic Pain Chronic Pain Chronic Pain Chronic Pain Chronic Pain Chronic Pain Chronic Pain Outpatient Attender: Yuni Archibald banda: Yuni Rashid MDConsultant: STAFF NON 06/30/2020 02:56:00 PM EDT - 06/30/2020 03:06:00 PM EDT [facility] Immunizations Vaccine Date Status Description Data Source(s) This CVX code allows reporting of a vacc ination when formulation is unknown (for example, when recording a Influenza vaccination when noted on a vaccination card) 03/27/2021 01:27:00 PM EDT completed <td ID="Jtujjvjwlxaub-Vysiqcfnevw-PO9">Influenza,NOS</td><td ID="ImmunizationDose- 3">3</td><td>03/27/2021</td><td ID="Wfozyvltrcyyb-CyoieYkmr-LZ1"></td><td></td> <td ID="Ceosrtadqnqon-Fpyafi-AO2">Complete (Refused - Patient objection)</td><td>[facility]</td><td ID="Ixdmnkximirgv-Vvtas-Rlvl-Comment-ID3"></td> [facility] 02/28/2021 01:28:00 PM EDT completed <td ID="Eoagwabrnuvxg-Hqlydygjiqa-DK2">COVID-19 ISACC</td><td ID="ImmunizationDose- 0">1</td><td>02/28/2021</td><td ID="Hjyzqygtnjgao-GosnvPnyg-EY6"></td><td></td> <td ID="Iqdudavytmfyl-Urvkme-ZU1">Complete (Reported)</td><td>Patient</td><td ID="Uoqamtsfwasrz-Wvqrq-Bvjq-Comment-ID0"></td> [facility]) COVID-19 VACCINE Scotty 02/28/2021 12:00:00 AM EDT completed [employer] Vaccine Series Complete: YESThis Data wa s Submitted to [facility] Via [employer]. Medications Medication Brand Name Start Date Product Form Dose Route Admi nistrative Instructions Pharmacy Instructions Status Indications Reaction Description Data Source(s) 10-325 mg 08/21/2021 12:00:00 AM EDT tablet 180 TAKE ONE TABLET BY MOUTH EVERY 4 TO 6 HOURS NEEDED MAXIMUM DAILY DOSE = 6 TABLETS TAKE ONE TABLET BY MOUTH EVERY 4 TO 6 HOURS NEEDED MAXIMUM DAILY DOSE = 6 TABLETS SOLD: 08/21/2021 [facility] Acetaminophen 325 MG / Oxycodone Hydroch loride 10 MG Oral Tablet [Percocet] Percocet 10-325 MG Oral Tablet Percocet 10-325 MG Oral Tablet 04/26/2021 12:00:00 AM EDT active acetaminophen 325 MG / oxycodone hydrochloride 10 MG Oral Tablet [Percocet] NGUYEN ([facility]) gabapentin 100 MG Oral Capsule Gabapentin 100 MG Oral Capsule Gabapentin 100 MG Oral Capsule 03/27/2021 12:00:00 AM EDT activ e gabapentin 100 MG Oral Capsule [facility]) Ondansetron 4 MG Disintegrating Oral Tab let Ondansetron 4 MG Oral Tablet Disintegrating Ondansetron 4 MG Oral Tablet Disintegrating 03/27/2021 12:00:00 AM EDT active ondansetron 4 MG Disintegrating Oral Tablet [facility]) 24 HR metoprolol succinate 100 MG Extend ed Release Oral Tablet Metoprolol Succinate ER 100 MG Oral Tablet Extended Release 24 Hour Metoprolol Succinate ER 100 MG Oral Tablet Extended Release 24 Hour 03/27/2021 12:00:00 AM EDT aborted 24 HR metoprolol succinate 1 00 MG Extended Release Oral Tablet ASSUMPTION ([facility]) Acetaminophen 325 MG / Oxycodone Hydroch loride 10 MG Oral Tablet [Percocet] Percocet 10-325 MG Oral Tablet Percocet 10-325 MG Oral Tablet 03/27/2021 12:00:00 AM EDT aborted acetaminophen 325 MG / oxycodone hydrochloride 10 MG Oral Tablet [Percocet] ASSUMPTION ([facility]) gabapentin 800 MG Oral Tablet Gabapentin 800 MG Oral T ablet Gabapentin 800 MG Oral Tablet 03/27/2021 12:00:00 AM EDT active [facility]entin 800 [facility] Acetaminophen 325 MG / Oxycodone Hydroch loride 10 MG Oral Tablet [Percocet] Percocet 10-325 MG Oral Tablet Percocet 10-325 MG Oral Tablet 02/21/2021 12:00:00 AM EDT aborted acetaminophen 325 MG / oxycodone hydrochloride 10 MG Oral Tablet [Percocet] ASSUMPTION ([facility]) Sumatriptan 100 MG Oral Tablet SUMAtriptan Succinate 1 00 MG Oral Tablet SUMAtriptan Succinate 100 MG Oral Tablet 02/21/2021 12:00:00 AM EDT active sumatriptan 100 MG Oral Tablet [facility]) Acetaminophen 325 MG / Oxycodone Hydroch loride 10 MG Oral Tablet [Percocet] Percocet 10-325 MG Oral Tablet Percocet 10-325 MG Oral Tablet 01/24/2021 12:00:00 AM EST aborted acetaminophen 325 MG / oxycodone hydrochloride 10 MG Oral Tablet [Percocet] ASSUMPTION ([facility]) Acetaminophen 325 MG / Oxycodone Hydroch loride 10 MG Oral Tablet [Percocet] Percocet 10-325 MG Oral Tablet Percocet 10-325 MG Oral Tablet 12/29/2020 12:00:00 AM EST aborted acetaminophen 325 MG / oxycodone hydrochloride 10 MG Oral Tablet [Percocet] [facility]) 24 HR metoprolol succinate 100 MG Extend ed Release Oral Tablet Metoprolol Succinate ER 100 MG Oral Tablet Extended Release 24 Hour Metoprolol Succinate ER 100 MG Oral Tablet Extended Release 24 Hour 12/29/2020 12:00:00 AM EST 1 aborted 24 HR metoprolol succinate 1 00 MG Extended Release Oral Tablet ASSUMPTION ([facility]) Ondansetron 4 MG Disintegrating Oral Tab let Ondansetron 4 MG Oral Tablet Disintegrating Ondansetron 4 MG Oral Tablet Disintegrating 12/29/2020 12:00:00 AM EST aborted ondansetron 4 MG Disintegrating Oral Tablet [facility]) Ajovy 225 MG/1.5ML Subcutaneous Solution Prefilled Syr cat Ajovy 225 MG/1.5ML Subcutaneous Solution Prefilled Syringe 11/28/2020 12:00:00 AM EST aborted 1.5 ML fremanezumab-vfrm 150 MG/ ML Prefilled Syringe [Ajovy] NGUYEN ([facility]) Acetaminophen 325 MG / Oxycodone Hydroch loride 10 MG Oral Tablet [Percocet] Percocet 10-325 MG Oral Tablet Percocet 10-325 MG Oral Tablet 11/28/2020 12:00:00 AM EST aborted acetaminophen 325 MG / oxycodone hydrochloride 10 MG Oral Tablet [Percocet] NGUYEN ([facility]) Sumatriptan 100 MG Oral Tablet SUMAtriptan Succinate 1 00 MG Oral Tablet SUMAtriptan Succinate 100 MG Oral Tablet 10/28/2020 12:00:00 AM EST aborted sumatriptan 100 MG Oral Tablet [facility] Acetaminophen 325 MG / Oxycodone Hydroch loride 10 MG Oral Tablet [Percocet] Percocet 10-325 MG Oral Tablet Percocet 10-325 MG Oral Tablet 10/28/2020 12:00:00 AM EST aborted acetaminophen 325 MG / oxycodone hydrochloride 10 MG Oral Tablet [Percocet] ASSUMPTION ([facility]) gabapentin 100 MG Oral Capsule Gabapentin 100 MG Oral Capsule Gabapentin 100 MG Oral Capsule 09/30/2020 12:00:00 AM EST abort ed gabapentin 100 MG Oral Capsule [facility]) gabapentin 800 MG Oral Tablet Gabapentin 800 MG Oral T ablet Gabapentin 800 MG Oral Tablet 09/30/2020 12:00:00 AM EST aborte d gabapentin 800 MG Oral Tablet [facility]) Acetaminophen 325 MG / Oxycodone Hydroch loride 10 MG Oral Tablet [Percocet] Percocet 10-325 MG Oral Tablet Percocet 10-325 MG Oral Tablet 09/30/2020 12:00:00 AM EST aborted acetaminophen 325 MG / oxycodone hydrochloride 10 MG Oral Tablet [Percocet] NGUYEN ([facility]) Ondansetron 4 MG Disintegrating Oral Tab let Ondansetron 4 MG Oral Tablet Disintegrating Ondansetron 4 MG Oral Tablet Disintegrating 09/30/2020 12:00:00 AM EST aborted ondansetron 4 MG Disintegrating Oral Tablet [facility]) 24 HR metoprolol succinate 100 MG Extend ed Release Oral Tablet Metoprolol Succinate ER 100 MG Oral Tablet Extended Release 24 Hour Metoprolol Succinate ER 100 MG Oral Tablet Extended Release 24 Hour 09/30/2020 12:00:00 AM EST 1 aborted 24 HR metoprolol succinate 1 00 MG Extended Release Oral Tablet ASSUMPTION ([facility]) Sumatriptan 100 MG Oral Tablet SUMAtriptan Succinate 1 00 MG Oral Tablet SUMAtriptan Succinate 100 MG Oral Tablet 09/01/2020 12:00:00 AM EDT aborted sumatriptan 100 MG Oral [facility]) Acetaminophen 325 MG / Oxycodone Hydroch loride 10 MG Oral Tablet [Percocet] Percocet 10-325 MG Oral Tablet Percocet 10-325 MG Oral Tablet 09/01/2020 12:00:00 AM EDT aborted acetaminophen 325 MG / oxycodone hydrochloride 10 MG Oral Tablet [Percocet] ASSUMPTION ([facility]) 24 HR metoprolol succinate 100 MG Extend ed Release Oral Tablet Metoprolol Succinate ER 100 MG Oral Tablet Extended Release 24 Hour Metoprolol Succinate ER 100 MG Oral Tablet Extended Release 24 Hour 08/02/2020 12:00:00 AM EDT 1 aborted 24 HR metoprolol succinate 1 00 MG Extended Release Oral Tablet ASSUMPTION ([facility]) Ajovy 225 MG/1.5ML Subcutaneous Solution Prefilled Syr cat Ajovy 225 MG/1.5ML Subcutaneous Solution Prefilled Syringe 08/02/2020 12:00:00 AM EDT aborted 1.5 ML fremanezumab-vfrm 150 MG/ ML Prefilled Syringe [Ajovy] ASSUMPTION ([facility]) Acetaminophen 325 MG / Oxycodone Hydroch loride 10 MG Oral Tablet [Percocet] Percocet 10-325 MG Oral Tablet Percocet 10-325 MG Oral Tablet 08/02/2020 12:00:00 AM EDT aborted acetaminophen 325 MG / oxycodone hydrochloride 10 MG Oral Tablet [Percocet] ASSUMPTION ([facility]) Acetaminophen 325 MG / Oxycodone Hydroch loride 10 MG Oral Tablet [Percocet] Percocet 10-325 MG Oral Tablet Percocet 10-325 MG Oral Tablet 07/05/2020 12:00:00 AM EDT aborted acetaminophen 325 MG / oxycodone hydrochloride 10 MG Oral Tablet [Percocet] ASSUMPTION ([facility]) Acetaminophen 325 MG / Oxycodone Hydroch loride 10 MG Oral Tablet [Percocet] Percocet 10-325 MG Oral Tablet Percocet 10-325 MG Oral Tablet 06/30/2020 12:00:00 AM EDT aborted acetaminophen 325 MG / oxycodone hydrochloride 10 MG Oral Tablet [Percocet] ASSUMPTION ([facility]) Sumatriptan 100 MG Oral Tablet SUMAtriptan Succinate 1 00 MG Oral Tablet SUMAtriptan Succinate 100 MG Oral Tablet 05/02/2020 12:00:00 AM EDT aborted sumatriptan 100 MG Oral Tablet [facility]) 24 HR metoprolol succinate 100 MG Extend ed Release Oral Tablet Metoprolol Succinate ER 100 MG Oral Tablet Extended Release 24 Hour Metoprolol Succinate ER 100 MG Oral Tablet Extended Release 24 Hour 05/02/2020 12:00:00 AM EDT 1 aborted 24 HR metoprolol succinate 1 00 MG Extended Release Oral Tablet ASSUMPTION ([facility]) Ajovy 225 MG/1.5ML Subcutaneous Solution Prefilled Syr cat Ajovy 225 MG/1.5ML Subcutaneous Solution Prefilled Syringe 04/28/2020 12:00:00 AM EDT aborted 1.5 ML fremanezumab-vfrm 150 MG/ ML Prefilled Syringe [Ajovy] ASSUMPTION ([facility]) Ondansetron 4 MG Disintegrating Oral Tab let Ondansetron 4 MG Oral Tablet Disintegrating Ondansetron 4 MG Oral Tablet Disintegrating 04/01/2020 12:00:00 AM EDT aborted ondansetron 4 MG Disintegrating Oral Tablet ASSUMPTION ([facility]) gabapentin 800 MG Oral Tablet Gabapentin 800 MG Oral T ablet Gabapentin 800 MG Oral Tablet 04/01/2020 12:00:00 AM EDT aborte d gabapentin 800 MG Oral Tablet ASSUMPTION ([facility]) gabapentin 100 MG Oral Capsule Gabapentin 100 MG Oral Capsule Gabapentin 100 MG Oral Capsule 04/01/2020 12:00:00 AM EDT abort ed gabapentin 100 MG Oral Capsule ASSUMPTION ([facility]) Insurance Providers Payer name Policy type / Coverage type Policy ID Covered republican ID Covered republican's relationship to de paz Policy [place] Plan Information [facility] F [id number] SELF [id number] [facility] U [id number] Spouse [id number] [facility] F [id number] SPOUSE [id number] [facility] F [id number] SELF [id number] [facility] F [id number] SELF [id number] [facility] 2 [id number] [facility] [id number] [facility] [id number] MVP Options F [id number] SELF [id number] [employer] Plan [facility] Individual Policy 0 [id number] Se lf 0 [facility] Individual Policy 0 [id number] Se lf 0 [facility] Individual Policy 0 [id number] Se lf 0 [facility] Individual Policy 0 [id number] Se lf 0 [facility] Individual Policy 0 [id number] Se lf 0 [facility] Individual Policy 0 [id number] Se lf 0 [facility] Individual Policy 0 [id number] Se lf 0 [facility] Individual Policy 0 [id number] Se lf 0 [facility] Individual Policy 0 [id number] Se lf 0 [facility] Individual Policy 0 [id number] Se lf 0 [facility] Individual Policy 0 [id number] Se lf 0 [facility] Individual Policy 0 [id number] Se lf 0 [employer] [facility] Individual Policy 0 [id number] Se lf 0 MVP Medicaid F [id number] SELF [id number] [facility] [id number] 2 [id number] MVP Health Maintenance Organization (HMO) [id number] Self [id number] [facility] Health Maintenance Organization (HMO) [id number] [employer] MEDICAID HMO -PHYSICIAN [id number] 18 [id number] [facility] O [id number] S [id number] [facility] N REGIONAL CLAIMS PARTH-O/P [id number] 01 [id number] [facility] MEDICAID HMO -O/P [id number] 18 [id number] [employer] HE[employer] INSURANCE [employer]-O/P [id number] 18 [id number] ANSI-Not a Secondary Insurance [id number] [facility] Individual Policy 0 [id number] Se lf 0 [employer] [facility] Individual Policy 0 [id number] Se lf 0 [facility] Individual Policy 0 [id number] Se lf 0 [facility] Individual Policy 0 [id number] Se lf 0 [facility] Individual Policy 0 [id number] Se lf 0 ANSI-Not a Secondary Insurance [id number] [facility] HUMANA [id number] 2 [id number] HUMAN [facility] REG O [id number] S [id number] [facility] HUMANA - O/P [id number] 01 [id number] [facility] [id number] S [id number] [facility] [id number] 2 [id number] SELF PAY 2 UNAVAILABLE 1 UNAVAILA BLE SELF PAY ONLY SP 6 [phone] [id number] [phone] [facility] O [id number] U [id number] [facility] O [id number] U [id number] Problems, Conditions, and Diagnoses Code Display Name Description Problem Type Effective Dates Data Source(s) G894 Chronic pain syndrome Chronic pain syndrome Diagnosis 03/27/2021 03:27:00 PM EDT [facility] R079 Chest pain, unspecified Chest pain, unspecified Diagno sis 10/28/2020 11:14:00 AM EST [facility] [id number] Psychogenic formication (disorder) Psychogenic Formica tion Problem 11/28/2020 12:00:00 AM EST NGUYEN ([facility]) [id number] Psychogenic formication (disorder) Psychogenic Formica tion Problem 11/28/2020 12:00:00 AM EST NGUYEN ([facility]) 387601664 Psychogenic formication (disorder) Psychogenic Formica tion Problem 11/28/2020 12:00:00 AM EST NGUYEN ([facility]) [id number] Psychogenic formication (disorder) Psychogenic Formica tion Problem 11/28/2020 12:00:00 AM EST NGUYEN ([facility]) 786.50 Atypical Chest Pain Atypical Chest Pain Finding 1 12/11/2019 12:00:00 AM [facility] ([facility]) 786.50 Atypical Chest Pain Atypical Chest Pain Finding 1 12/11/2019 12:00:00 AM EST NGUYEN ([facility]) 786.50 Atypical Chest Pain Atypical Chest Pain Finding 1 12/11/2019 12:00:00 AM EST NGUYEN ([facility]) 786.50 Atypical Chest Pain Atypical Chest Pain Finding 1 12/11/2019 12:00:00 AM EST NGUYEN ([facility]) 786.50 Atypical Chest Pain Atypical Chest Pain Finding 1 12/11/2019 12:00:00 AM [facility] ([facility]) Surgeries/Procedures No Information Results ID Date Data Source [id number] [facility] Name Value Range Interpretation Code Description Data Moriah rce(s) Supporting Document(s) Reported Physicians See Note Reported Physici ans ASSUMPTION ([facility]) Note: Reported Physicians:Ordering: Yuni Dominguez AAttending: RACHID, JOCELYNReferring: RACHID, JOCELYNConsulting: RACHID, JOCELYNCopy To: Rachid Yuni ID Date Data Source [id number] 03/27/2021 01:35:00 PM EDT NGUYEN ([facility]) Name Value Range Interpretation Code Description Data Moriah rce(s) Supporting Document(s) Summary Report (Summary) FINAL Summary Rep ort (Summary) NGUEYN ([facility]) Note: TOXASSURE SELECT 13 (MW) Test Result [...] Flag Units Ref Range Creatinine 105 mg/dL > =20 Declared Medications: The flagging and interpretation on this report are based on the following declared medications. Unexpected results may arise from inaccuracies in the declared medications. Note: The testing scope of this panel includes these medications: Oxycodone (Percocet) Note: The testing scope of this panel does not include following reported medications: Acetaminophen (Percocet) Fo r clinical consultation, please call . Responsible Observer: ko) PDF . PDF NGUYEN ([facility]) Note: Responsible Observer: (eliazar) ID Date Data Source [id number] 04/03/2021 06:26:00 AM EDT [facility] Name Value Range Interpretation Code Description Data Moriah rce(s) Supporting Document(s) Drugs identified in Urine FINAL [facility] TOXASSURE SELECT 13 (MW) Test Result Flag [...] Flag Units Ref Range Creatinine 105 mg/dL > =20 Declared Medications: The flagging and interpretation on this report are based on the following declared medications. Unexpected results may arise from inaccuracies in the declared medications. Note: The testing scope of this panel includes these medications: Oxycodone (Percocet) Note: The testing scope of this panel does not include following reported medications: Acetaminophen (Percocet) Fo r clinical consultation, please call . Report . [facility] ID Date Data Source [id number] 03/14/2021 09:27:00 PM FELIBERTO CEDILLO ([facility]) Name Value Range Interpretation Code Description Data Moriah rce(s) Supporting Document(s) Reported Physicians See Note Reported Physici august CEDILLO ([facility]) Note: Reported Physicians:Ordering: JACQUIE CANNON [id number], ATUL Kelsey,Attending: Alfonzo RIVERA To: Alfonzo RIVERA To: Yuni Rashid ID Date Data Source [id number] 03/14/2021 09:27:00 PM EDT ASSUMPTION ([facility]) Name Value Range Interpretation Code Description Data Moriah rce(s) Supporting Document(s) CHI COVID ANTIGEN NEGATIVE Normal CHI COVID ANTI GEN ASSUMPTION ([facility]) Note: The Chi SARS Antigen KAMRAN does no t differentiate between SARS-CoV and SARS-CoV-2. Negative results do not rule out COVID-19 and should not be used as the sole basis for treatment. Negative results should be considered in the context of a patient's recent exposure, history and the presence of clinical signs and symptoms consistent with COVID-19. ID Date Data Source [id number] 03/14/2021 09:27:00 PM EDT [facility] Name Value Range Interpretation Code Description Data Moriah rce(s) Supporting Document(s) SARS COVID ANTIGEN NEGATIVE [facility] This lab was ordered by CHRISTA brennan nd reported by [facility]. ID Date Data Source [id number] 03/14/2021 09:17:00 PM EDT ASSUMPTION ([facility]) Name Value Range Interpretation Code Description Data Moriah rce(s) Supporting Document(s) Reported Physicians See Note Reported Physici ans ASSUMPTION ([facility]) Note: Reported Physicians:Ordering: KASI SEO [id number]: Alfonzo RIVERA To: Alfonzo RIVERA To: Hemant DALTON To: Yuni Rashid ID Date Data Source [id number] 03/14/2021 09:17:00 PM EDT ASSUMPTION ([facility]) Name Value Range Interpretation Code Description Data Moriah rce(s) Supporting Document(s) CORONAVIRUS 2019 NASOPHARYGEAL See Note CORON AVIRUS 2019 NASOPHARYGEAL ASSUMPTION ([facility]) Note: ASSAY INFORMATION: Real Time RT-PC RNOTE: The COVID-19 assay has been cleared by the U.S. Food and DrugAdministration under the Emergency Use Authorization (EUA). [employer] (Closed) and [employer] are designated as high complexity laboratories by theClinical Laboratory Improvement Amendments of 1988(CLIA) and are qualified toperform this test.Not Detected ID Date Data Source [id number] 03/14/2021 09:17:00 PM EDT [facility] Name Value Range Interpretation Code Description Data Moriah rce(s) Supporting Document(s) SARS-CoV-2 (COVID-19) RNA [Presence] in Respiratory specimen by MARIA D with probe detection Not Detected [facility] This lab was ordered by [facility] and reported by [employer] ID Date Data Source [id number] 02/18/2021 03:55:00 PM EDT [facility] ([facility]) Name Value Range Interpretation Code Description Data Moriah rce(s) Supporting Document(s) Reported Physicians See Note [facility] Note: Reported Physicians:Ordering: Barbie Sarkar [phone], Maja MDAttending: Linda MajaCopy To: Linda MajaCopy To: Yuni Rashid ID Date Data Source [id number] 02/18/2021 03:55:00 PM EDT [facility] ([facility]) Name Value Range Interpretation Code Description Data Moriah rce(s) Supporting Document(s) HCG, SERUM QUALITATIVE NEGATIVE Normal HCG, SERUM QU ALITATIVE [facility] ([facility]) ID Date Data Source [id number] 02/18/2021 03:55:00 PM EDT [facility] ([facility]) Name Value Range Interpretation Code Description Data Moriah rce(s) Supporting Document(s) Reported Physicians See Note Reported [facility] ([facility]) Note: Reported Physicians:Ordering: Barbie Sarkar [phone], Maja MDAttending: Lundmagalig-Philippe MajaCopy To: LundWilliam MajaCopy To: Yuni Rashid ID Date Data Source [id number] 02/18/2021 03:55:00 PM EDT [facility] ([facility]) Name Value Range Interpretation Code Description Data Moriah rce(s) Supporting Document(s) AST/SGOT 14 U/L Normal AST/SGOT [facility] ([facility]) ALT/SGPT 17 U/L Normal ALT/SGPT [facility] ([facility]) Alkaline phosphatase [Enzymatic activity/volume] in Se rum, Plasma or Blood 74 U/L Normal ALKALINE PHOSPHATASE [facility]) BILIRUBIN,TOTAL 0.4 MG/DL Normal BILIRUBIN,TOTAL GREE [facility] ([facility]) TOTAL PROTEIN 7.4 GM/DL Normal TOTAL PROTEIN [facility]) BILIRUBIN,DIRECT 0.1 MG/DL Normal BILIRUBIN,DIRECT [facility] ([facility] ALBUMIN/GLOBULIN RATIO 1.6 Normal ALBUMIN/GLOBU JASSON RATIO [facility]) Albumin [Mass/volume] in Blood by Bromocresol purple ( BCP) dye binding method 4.5 GM/DL Normal ALBUMIN [facility]) ID Date Data Source [id number] 02/18/2021 03:55:00 PM EDT [facility] ([facility]) Name Value Range Interpretation Code Description Data Moriah rce(s) Supporting Document(s) Reported Physicians See Note Reported Physici ans [facility]) Note: Reported Physicians:Ordering: Barbie Sarkar [phone], Maja MDAttending: Alfonso Mckeon To: Alfonso Mckeon To: Yuni Rashid ID Date Data Source [id number] 02/18/2021 03:55:00 PM EDT [facility] ([facility]) Name Value Range Interpretation Code Description Data Moriah rce(s) Supporting Document(s) LIPASE 74 U/L Normal LIPASE [facility] ([facility]) ID Date Data Source [id number] 02/18/2021 03:55:00 PM EDT [facility] ([facility]) Name Value Range Interpretation Code Description Data Moriah rce(s) Supporting Document(s) Reported Physicians See Note Reported Physici ans [facility] ([facility]) Note: Reported Physicians:Ordering: Barbie magaligGray [phone], Maja MDAttending: Linda MajaCopy To: Linda MajaCopy To: Yuni Rashid ID Date Data Source [id number] 02/18/2021 03:55:00 PM EDT [facility] ([facility]) Name Value Range Interpretation Code Description Data Moriah rce(s) Supporting Document(s) GLUCOSE, FASTING 85 MG/DL Normal GL[facility]COSE, FASTING [facility] ([facility]) CREATININE FOR GFR 0.71 MG/DL Normal CREATININE FOR GF R [facility] ([facility]) BLOOD UREA NITROGEN 17 MG/DL Normal BLOOD UREA NITRO GEN [facility] ([facility]) GLOMERULAR FILTRATION RATE > 60.0 Normal GLOMERULA R FILTRATION RATE [facility] ([facility]) Note: Units are mL/min/1.73 m2 Chroni c Kidney Disease Staging per NKF: Stage I & II GFR >=60 Normal to Mildly Decreased Stage III GFR 30- 59 Moderately Decreased Stage IV GFR 15-29 Severely Decreased Stage V GFR <15 Very Little GFR Left ESRD GFR <15 on CHIP BIN CONVEYOR TENDER SODIUM LEVEL 140 MEQ/L Normal SODIUM LEVEL [facility]) CHLORIDE LEVEL 106 MEQ/L Normal CHLORIDE LEVEL [facility]) POTASSIUM SERUM 4.1 MEQ/L Normal [facility]UM [facility]) CARBON DIOXIDE LEVEL 31 MEQ/L Normal CARBON DIOXIDE LEVEL [facility]) Anion gap in Body fluid 3 MEQ/L Below low normal ANION GAP [facility]) CALCIUM LEVEL 9.2 MG/DL Normal CALCIUM LEVEL [facility]) ID Date Data Source [id number] 02/18/2021 03:55:00 PM EDT [facility] ([facility]) Name Value Range Interpretation Code Description Data Moriah rce(s) Supporting Document(s) Reported Physicians See Note Reported Physici ans [facility] ([facility]) Note: Reported Physicians:Ordering: Barbie Sarkar [phone], Negra MDAttending: Wenceslao-Philippe MajaCopy To: Linda MajaCopy To: Yuni Rashid ID Date Data Source [id number] 02/18/2021 03:55:00 PM EDT [facility] ([facility]) Name Value Range Interpretation Code Description Data Moriah rce(s) Supporting Document(s) RED BLOOD COUNT 4.03 6/uL Normal RED BLOOD COUNT [facility] ([facility]) WHITE BLOOD COUNT 3.7 3/uL Below low normal WHITE BLOOD COUNT [facility] ([facility]) Hematocrit [Pure volume fraction] of Blood by Automated count 36.9 % Normal HEMATOCRIT [facility] ([facility]) Hemoglobin [Mass/volume] in Mixed venous blood by Oximetry 11.6 g/dl Below low normal HEMOGLOBIN [facility] ([facility]) MEAN CORPUSCULAR HEMOGLOBIN 28.8 pg Normal MEAN COR PUSCULAR HEMOGLOBIN [facility] ([facility]) MEAN CORPUSCULAR VOLUME 91.6 fl Normal MEAN CORPUSC ULAR VOLUME [facility] ([facility]) MEAN CORPUSCULAR HGB CONC 31.4 g/dl Below low colin l MEAN CORPUSCULAR HGB CONC [facility] ([facility]) PLATELET COUNT, AUTOMATED 177 3/uL Normal PLATELET C OUNT, AUTOMATED [facility] ([facility]) RED CELL DISTRIBUTION WIDTH 13.9 % Normal RED CELL DISTRIBUTION WIDTH [facility] ([facility]) NEUTROPHILS % 49.7 % Normal NEUTROPHILS % [facility] ([facility]) LYMPH % 41.6 % Normal LYMPH % [facility] ([facility]) EOS % 1.9 % Normal EOS % [facility] ([facility]) MONO % 6.3 % Normal MONO % [facility] ([facility]) BASO % 0.5 % Normal BASO % [facility] ([facility]) IMMATURE GRANULOCYTE % 0.0 % Normal IMMATURE GRAN ULOCYTE % [facility] ([facility]) NUCLEATED RED BLOOD CELL % 0.0 % Normal NUCLEATED RED BLOOD CELL % [facility] ([facility]) NEUTROPHILS # 1.8 3/uL Normal NEUTROPHILS # [facility] ([facility]) LYMPH # 1.5 3/uL Normal LYMPH # [facility] ([facility]) EOS # 0.1 3/uL Normal EOS # [facility] ([facility]) MONO # 0.2 3/uL Normal MONO # [facility] ([facility]) BASO # 0.0 3/uL Normal BASO # [facility] ([facility]) ID Date Data Source [id number] 11/01/2020 08:22:00 PM [facility] ([facility]) Name Value Range Interpretation Code Description Data Moriah rce(s) Supporting Document(s) Reported Physicians See Note Reported Physici ans [facility] ([facility]) Note: Reported Physicians:Ordering: GEOVANI REYES [phone]: DAMIR THIBODEAUXCopy To: DAMIR THIBODEAUXCopmichelle To: GEOVANI RASMUSSENCopmichelle To: Yuni Rashid ID Date Data Source [id number] 11/01/2020 08:22:00 PM [facility] ([facility]) Name Value Range Interpretation Code Description Data Moriah rce(s) Supporting Document(s) CORONAVIRUS 2019 NASOPHARYGEAL See Note CORON AVIRUS 2019 NASOPHARYGEAL [facility] ([facility]) Note: This nucleic acid amplification te st [...] SARS-CoV-2 virusand/or diagnosis of COVID-19 infection under (b)(1) of the Act, 21 U.S.C. 360bbb-3(b) (1), [...] detec antonia) result in this assay.Performed at: [id number] [facility], [place], [place] [id number] Director: Denise Giraldo PhD, Phone: [phone] Detected ID Date Data Source [id number] 11/01/2020 08:22:00 PM EST [facility] Name Value Range Interpretation Code Description Data Moriah rce(s) Supporting Document(s) SARS coronavirus 2 RNA [facility] This lab was ordered by [facility] and reported by [facility]. ID Date Data Source [id number] 10/28/2020 11:30:00 AM EST [facility] ([facility]) Name Value Range Interpretation Code Description Data Moriah rce(s) Supporting Document(s) Reported Physicians See Note Reported Physici ans [facility] ([facility]) Note: Reported Physicians:Ordering: SALAZAR DONNAAttending: DONNA DIAZConsulting: YUNI RASHIDCopmichelle To: Yuni Rashid ID Date Data Source [id number] 10/28/2020 11:30:00 AM EST [facility] ([facility]) Name Value Range Interpretation Code Description Data Moriah rce(s) Supporting Document(s) D-DIMER QUANT <0.27 ug/mL D-DIMER QUANT [facility] ([facility]) Note: Responsible Observer: (SJR) ID Date Data Source [id number] 10/28/2020 11:30:00 AM EST [facility] ([facility]) Name Value Range Interpretation Code Description Data Moriah rce(s) Supporting Document(s) Reported Physicians See Note Reported Physici ans [facility] ([facility]) Note: Reported Physicians:Ordering: SALAZAR DONNAAttending: DONAN DIAZConsulting: TOREY RASHIDYNCopmichelle To: Yuni Rashid ID Date Data Source [id number] 10/28/2020 11:30:00 AM EST [facility] ([facility]) Name Value Range Interpretation Code Description Data Moriah rce(s) Supporting Document(s) TROPONIN T <0.01 NG/ML TROPONIN T [facility] ([facility]) Note: TROPONIN T0.1 ng/ml Recommended as the clinical threshold value forTroponin T.Responsible Observer: (TAD) ID Date Data Source [id number] 10/28/2020 11:30:00 AM EST [facility] ([facility]) Name Value Range Interpretation Code Description Data Moriah rce(s) Supporting Document(s) Reported Physicians See Note Reported Physici ans [facility] ([facility]) Note: Reported Physicians:Ordering: DONNA TOSCANOAttending: DONNA DIAZConsulting: Eric RASHID To: Yuni Rashid ID Date Data Source [id number] 10/28/2020 11:30:00 AM [facility] ([facility]) Name Value Range Interpretation Code Description Data Moriah rce(s) Supporting Document(s) BNP 133 PG/ML Above high normal BNP [facility] ([facility]) Note: Responsible Observer: (TAD) ID Date Data Source [id number] 10/28/2020 12:34:00 PM [facility] Name Value Range Interpretation Code Description Data Moriah rce(s) Supporting Document(s) BNP 133 PG/ML 0 - 125 H [facility] ID Date Data Source [id number] 10/28/2020 12:25:00 PM [facility] Name Value Range Interpretation Code Description Data Moriah rce(s) Supporting Document(s) TROPONIN T <0.01 NG/ML 0.00 - 0.10 [facility] TROPONIN T0.1 ng/ml Recommended as the c linical threshold value forTroponin T. ID Date Data Source [id number] 10/28/2020 12:08:00 PM [facility] Name Value Range Interpretation Code Description Data Moriah rce(s) Supporting Document(s) Fibrin D-dimer FEU [Mass/volume] in Platelet poor plasma <0. 27 ug/mL 0.27 - 0.50 [facility] ID Date Data Source [id number] 09/17/2020 09:30:00 AM EDT [facility] Name Value Range Interpretation Code Description Data Moriah rce(s) Supporting Document(s) SARS coronavirus 2 RNA [facility] This lab was ordered by [facility] and reported by [facility]. Procedure Social History No Information Vital Signs ID Date Data Source [id number] Name Value Range Interpretation Code Description Data Source(s) Systolic blood pressure 118 mm[Hg] 118 mm[Hg] [facility] ([facility]) Diastolic blood pressure 62 mm[Hg] 62 mm[Hg] [facility] ([facility]) Heart rate 90 /min 90 /min [facility] ([facility]) Respiratory rate 24 /min 24 /min [facility] ([facility]) Body temperature 97.6 [degF] 97.6 [degF] [facility] ([facility]) Body height 64 [in_i] 64 [in_i] [facility] ([facility]) Body weight 98 [lb_av] 98 [lb_av] [facility] ([facility]) Body mass index (BMI) [Ratio] 16.8 kg/m2 16.8 k g/m2 [facility] ([facility]) Body surface area Derived from formula 1.44 m2 1.44 m2 [facility] ([facility]) Oxygen saturation in Arterial blood by Pulse oximetry 99 % 99 % [facility] ([facility]) Inhaled oxygen flow rate 0 L/min 0 L/min [facility] ([facility]) Inhaled oxygen concentration 21 % 21 % [facility] ([facility]) Systolic blood pressure 100 mm[Hg] 100 mm[Hg] [facility] ([facility]) Diastolic blood pressure 60 mm[Hg] 60 mm[Hg] [facility] ([facility]) Heart rate 76 /min 76 /min [facility] ([facility]) Respiratory rate 20 /min 20 /min [facility] ([facility]) Body temperature 97.6 [degF] 97.6 [degF] [facility] ([facility]) Body height 64 [in_i] 64 [in_i] [facility] ([facility]) Body weight 98 [lb_av] 98 [lb_av] [facility] ([facility]) Body mass index (BMI) [Ratio] 16.8 kg/m2 16.8 k g/m2 [facility] ([facility]) Body surface area Derived from formula 1.44 m2 1.44 m2 [facility] ([facility]) Oxygen saturation in Arterial blood by Pulse oximetry 99 % 99 % [facility] ([facility]) Systolic blood pressure 118 mm[Hg] 118 mm[Hg] [facility] ([facility]) Diastolic blood pressure 68 mm[Hg] 68 mm[Hg] [facility] ([facility]) Heart rate 80 /min 80 /min [facility] ([facility]) Respiratory rate 24 /min 24 /min [facility] ([facility]) Body temperature 97.6 [degF] 97.6 [degF] [facility] ([facility]) Body height 64 [in_i] 64 [in_i] [facility] ([facility]) Body weight 97 [lb_av] 97 [lb_av] [facility] ([facility]) Body mass index (BMI) [Ratio] 16.6 kg/m2 16.6 k g/m2 [facility] ([facility]) Body surface area Derived from formula 1.44 m2 1.44 m2 [facility] ([facility]) Oxygen saturation in Arterial blood by Pulse oximetry 95 % 95 % [facility] ([facility]) Inhaled oxygen flow rate 0 L/min 0 L/min [facility] ([facility]) Inhaled oxygen concentration 21 % 21 % [facility] ([facility]) Oxygen saturation in Arterial blood by Pulse oximetry 99 % 99 % [facility] ([facility]) Systolic blood pressure 102 mm[Hg] 102 mm[Hg] [facility] ([facility]) Body surface area Derived from formula 1.48 m2 1.48 m2 [facility] ([facility]) Diastolic blood pressure 62 mm[Hg] 62 mm[Hg] [facility] ([facility]) Heart rate 80 /min 80 /min [facility] ([facility]) Respiratory rate 20 /min 20 /min [facility] ([facility]) Body temperature 98.2 [degF] 98.2 [degF] [facility] ([facility]) Body height 64 [in_i] 64 [in_i] [facility] ([facility]) Body weight 104 [lb_av] 104 [lb_av] [facility] ([facility]) Body mass index (BMI) [Ratio] 17.9 kg/m2 17.9 k g/m2 [facility] ([facility]) Diastolic blood pressure 68 mm[Hg] 68 mm[Hg] [facility] ([facility]) Heart rate 81 /min 81 /min [facility] ([facility]) Respiratory rate 24 /min 24 /min [facility] ([facility]) Body temperature 97.6 [degF] 97.6 [degF] [facility] ([facility]) Body height 64 [in_i] 64 [in_i] [facility] ([facility]) Body weight 98 [lb_av] 98 [lb_av] [facility] ([facility]) Body mass index (BMI) [Ratio] 16.8 kg/m2 16.8 k g/m2 [facility] ([facility]) Body surface area Derived from formula 1.44 m2 1.44 m2 [facility] ([facility]) Systolic blood pressure 120 mm[Hg] 120 mm[Hg] [facility] ([facility]) Oxygen saturation in Arterial blood by Pulse oximetry 99 % 99 % [facility] ([facility]) Inhaled oxygen flow rate 0 L/min 0 L/min [facility] ([facility]) Inhaled oxygen concentration 21 % 21 % [facility] ([facility]) Systolic blood pressure 110 mm[Hg] 110 mm[Hg] [facility] ([facility]) Diastolic blood pressure 70 mm[Hg] 70 mm[Hg] [facility] ([facility]) Heart rate 90 /min 90 /min [facility] ([facility]) Respiratory rate 20 /min 20 /min [facility] ([facility]) Body temperature 97.1 [degF] 97.1 [degF] [facility] ([facility]) Body height 64 [in_i] 64 [in_i] [facility] ([facility]) Body weight 101 [lb_av] 101 [lb_av] [facility] ([facility]) Body mass index (BMI) [Ratio] 17.3 kg/m2 17.3 k g/m2 [facility] ([facility]) Body surface area Derived from formula 1.46 m2 1.46 m2 [facility] ([facility]) Oxygen saturation in Arterial blood by Pulse oximetry 98 % 98 % [facility] ([facility]) Inhaled oxygen flow rate 0 L/min 0 L/min [facility] ([facility]) Inhaled oxygen concentration 21 % 21 % [facility] ([facility]) Body mass index (BMI) [Ratio] 16.8 kg/m2 16.8 k g/m2 [facility] ([facility]) Body temperature 98.1 [degF] 98.1 [degF] [facility] ([facility]) Systolic blood pressure 100 mm[Hg] 100 mm[Hg] [facility] ([facility]) Diastolic blood pressure 58 mm[Hg] 58 mm[Hg] [facility] ([facility]) Heart rate 88 /min 88 /min [facility] ([facility]) Respiratory rate 20 /min 20 /min [facility] ([facility]) Body height 64 [in_i] 64 [in_i] [facility] ([facility]) Body weight 98 [lb_av] 98 [lb_av] [facility] ([facility]) Body surface area Derived from formula 1.44 m2 1.44 m2 [facility] ([facility]) Oxygen saturation in Arterial blood by Pulse oximetry 97 % 97 % [facility] ([facility]) Systolic blood pressure 114 mm[Hg] 114 mm[Hg] [facility] ([facility]) Diastolic blood pressure 74 mm[Hg] 74 mm[Hg] [facility] ([facility]) Heart rate 100 /min 100 /min [facility] ([facility]) Respiratory rate 20 /min 20 /min [facility] ([facility]) Body temperature 96.8 [degF] 96.8 [degF] [facility] ([facility]) Body height 64 [in_i] 64 [in_i] [facility] ([facility]) Body weight 96 [lb_av] 96 [lb_av] [facility] ([facility]) Body mass index (BMI) [Ratio] 16.5 kg/m2 16.5 k g/m2 [facility] ([facility]) Body surface area Derived from formula 1.43 m2 1.43 m2 [facility] ([facility]) Oxygen saturation in Arterial blood by Pulse oximetry 97 % 97 % [facility] ([facility]) Inhaled oxygen flow rate 0 L/min 0 L/min [facility] ([facility]) Inhaled oxygen concentration 21 % 21 % [facility] ([facility]) Body weight 103 [lb_av] 103 [lb_av] [facility] ([facility]) Body mass index (BMI) [Ratio] 17.7 kg/m2 17.7 k g/m2 [facility] ([facility]) Body surface area Derived from formula 1.48 m2 1.48 m2 [facility] ([facility]) Oxygen saturation in Arterial blood by Pulse oximetry 95 % 95 % [facility] ([facility]) Inhaled oxygen flow rate 0 L/min 0 L/min [facility] ([facility]) Inhaled oxygen concentration 21 % 21 % [facility] ([facility]) Systolic blood pressure 114 mm[Hg] 114 mm[Hg] G [facility] ([facility]) Diastolic blood pressure 70 mm[Hg] 70 mm[Hg] [facility] ([facility]) Heart rate 68 /min 68 /min [facility] ([facility]) Respiratory rate 20 /min 20 /min [facility] ([facility]) Body temperature 97.1 [degF] 97.1 [degF] [facility] ([facility]) Body height 64 [in_i] 64 [in_i] [facility] ([facility]) Respiratory rate 18 /min 18 /min [facility] ([facility]) Body height 64 [in_i] 64 [in_i] [facility] ([facility]) Body weight 100 [lb_av] 100 [lb_av] [facility] ([facility]) Systolic blood pressure 110 mm[Hg] 110 mm[Hg] [facility] Diastolic blood pressure 66 mm[Hg] 66 mm[Hg] [facility] ([facility]) Heart rate 70 /min 70 /min [facility] ([facility]) Body surface area Derived from formula 1.46 m2 1.46 m2 [facility] ([facility]) Body mass index (BMI) [Ratio] 17.2 kg/m2 17.2 k g/m2 [facility] ([facility]) Oxygen saturation in Arterial blood by Pulse oximetry 99 % 99 % [facility] ([facility]) Body temperature 96.6 [degF] 96.6 [degF] [facility] ([facility]) Inhaled oxygen flow rate 0 L/min 0 L/min [facility] ([facility]) Inhaled oxygen concentration 21 % 21 % [facility] ([facility]) Systolic blood pressure 100 mm[Hg] 100 mm[Hg] M [facility] ([facility], ) Body weight 46.267 kg 46.267 kg [facility] ([facility], ) Body height 64 [in_i] 64 [in_i] [facility] ([facility], ) 5'4" Body weight 102.00 [lb_av] 102.00 [lb_av] MEDEN T ([facility], ) Body mass index (BMI) [Ratio] 17.5 kg/m2 17.5 k g/m2 [facility] ([facility], ) Diastolic blood pressure 64 mm[Hg] 64 mm[Hg] [facility] ([facility], ) Patient Treatment Plan of Care Planned Activity Planned Date Details Description Data Source (s) Acetaminophen 325 MG / Oxycodone Hydrochloride 10 MG O ral Tablet [Percocet] 04/26/2021 12:00:00 AM EDT [facility] ([facility]) Acetaminophen 325 MG / Oxycodone Hydrochloride 10 MG O ral Tablet [Percocet] 03/27/2021 12:00:00 AM EDT [facility] ([facility]) 24 HR metoprolol succinate 100 MG Extended Release Ora l Tablet 03/27/2021 12:00:00 AM EDT [facility] ([facility]) gabapentin 800 MG Oral Tablet 03/27/2021 12:00:00 AM EDT [facility] ([facility]) gabapentin 100 MG Oral Capsule 03/27/2021 12:00:00 AM EDT [facility] ([facility]) Ondansetron 4 MG Disintegrating Oral Tablet 03/27/2021 12:00:00 AM EDT [facility] ([facility]) Acetaminophen 325 MG / Oxycodone Hydrochloride 10 MG O ral Tablet [Percocet] 02/21/2021 12:00:00 AM EDT [facility] ([facility]) Sumatriptan 100 MG Oral Tablet 02/21/2021 12:00:00 AM EDT [facility] ([facility]) Acetaminophen 325 MG / Oxycodone Hydrochloride 10 MG O ral Tablet [Percocet] 01/24/2021 12:00:00 AM EST [facility] ([facility]) 24 HR metoprolol succinate 100 MG Extended Release Ora l Tablet 12/29/2020 12:00:00 AM EST [facility] ([facility]) Ondansetron 4 MG Disintegrating Oral Tablet 12/29/2020 12:00:00 AM EST [facility] ([facility] [place]) Acetaminophen 325 MG / Oxycodone Hydrochloride 10 MG O ral Tablet [Percocet] 12/29/2020 12:00:00 AM EST [facility]GUY[facility] ([facility]) Acetaminophen 325 MG / Oxycodone Hydrochloride 10 MG O ral Tablet [Percocet] 11/28/2020 12:00:00 AM EST NGUY[facility] ([facility]) Ajovy 225 MG/1.5ML Subcutaneous Solution Prefilled Syr cat 11/28/2020 12:00:00 AM EST NGUYEN ([facility]) Acetaminophen 325 MG / Oxycodone Hydrochloride 10 MG O ral Tablet [Percocet] 10/28/2020 12:00:00 AM EST [facility]GUYEN ([facility]) Sumatriptan 100 MG Oral Tablet 10/28/2020 12:00:00 AM EST [facility] ([facility]) Ondansetron 4 MG Disintegrating Oral Tablet 09/30/2020 12:00:00 AM EST [facility]GUY[facility] ([facility]) gabapentin 800 MG Oral Tablet 09/30/2020 12:00:00 AM EST [facility] ([facility]) gabapentin 100 MG Oral Capsule 09/30/2020 12:00:00 AM EST [facility] ([facility]) 24 HR metoprolol succinate 100 MG Extended Release Ora l Tablet 09/30/2020 12:00:00 AM EST [facility] ([facility]) Acetaminophen 325 MG / Oxycodone Hydrochloride 10 MG O ral Tablet [Percocet] 09/30/2020 12:00:00 AM EST [facility] ([facility]) Sumatriptan 100 MG Oral Tablet 09/01/2020 12:00:00 AM EDT [facility] ([facility]) Acetaminophen 325 MG / Oxycodone Hydrochloride 10 MG O ral Tablet [Percocet] 09/01/2020 12:00:00 AM EDT [facility] ([facility]) Ajovy 225 MG/1.5ML Subcutaneous Solution Prefilled Syr cat 08/02/2020 12:00:00 AM EDT [facility] ([facility]) Acetaminophen 325 MG / Oxycodone Hydrochloride 10 MG O ral Tablet [Percocet] 08/02/2020 12:00:00 AM EDT [facility] ([facility]) 24 HR metoprolol succinate 100 MG Extended Release Ora l Tablet 08/02/2020 12:00:00 AM EDT [facility] ([facility]) Acetaminophen 325 MG / Oxycodone Hydrochloride 10 MG O ral Tablet [Percocet] 07/05/2020 12:00:00 AM EDT [facility] ([facility]) Acetaminophen 325 MG / Oxycodone Hydrochloride 10 MG O ral Tablet [Percocet] 06/30/2020 12:00:00 AM EDT [facility] ([facility]) Sumatriptan 100 MG Oral Tablet 05/02/2020 12:00:00 AM EDT [facility] ([facility]) 24 HR metoprolol succinate 100 MG Extended Release Ora l Tablet 05/02/2020 12:00:00 AM EDT [facility] ([facility]) Ajovy 225 MG/1.5ML Subcutaneous Solution Prefilled Syr cat 04/28/2020 12:00:00 AM EDT [facility] ([facility]) gabapentin 100 MG Oral Capsule 04/01/2020 12:00:00 AM EDT [facility] ([facility]) gabapentin 800 MG Oral Tablet 04/01/2020 12:00:00 AM EDT [facility] ([facility]) Ondansetron 4 MG Disintegrating Oral Tablet 04/01/2020 12:00:00 AM EDT [facility] ([facility])
--- OUTSIDE RECORDS SUMMARY | 2021-09-03 15:29 | CCD ---
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 Name Role Phone Adebayo Rashid MD Unavailable [...] Unavailable Unavailable Boo Mendoza MD Unavailable Unavailable oBo Mendoza MD Unavailable Unavailable Boo Mendoza MD Unavailable Unavailable Pako, Mariae Oracle DIRECTOR DIVERSITY Unavailable Unavailable Pako, Mariae Donna DIRECTOR DIVERSITY Unavailable Unavailable Pako, Mariae Donna DIRECTOR DIVERSITY Unavailable Unavailable [place], Mariae Oracle DIRECTOR DIVERSITY Unavailable Unavailable Pako, Mariae Donna DIRECTOR DIVERSITY Unavailable Unavailable Pako, Mariae Oracle DIRECTOR DIVERSITY Unavailable Unavailable [place], Mariae Oracle DIRECTOR DIVERSITY Unavailable Unavailable Pako, Mariae Donna DIRECTOR DIVERSITY Unavailable Unavailable Pako, Mariae Donna DIRECTOR DIVERSITY Unavailable Unavailable [place], Mariae Donna DIRECTOR DIVERSITY Unavailable Unavailable Pako, Mariae Donna DIRECTOR DIVERSITY Unavailable Unavailable Pako, [facility] Oracle DIRECTOR DIVERSITY Unavailable Unavailable Pako, [facility] Donna DIRECTOR DIVERSITY Unavailable Unavailable Pako, Mariae Donna DIRECTOR DIVERSITY Unavailable Unavailable Pako, Mariae Oracle DIRECTOR DIVERSITY Unavailable Unavailable [place], Mariae Donna DIRECTOR DIVERSITY Unavailable Unavailable [place], Mariae Donna DIRECTOR DIVERSITY Unavailable Unavailable Wesley, H Kellie DIRECTOR DIVERSITY Unavailable Unavailable Wesley, H Kellie DIRECTOR DIVERSITY Unavailable Unavailable Wesley, H Kellie DIRECTOR DIVERSITY Unavailable Unavailable Wesley, H Kellie DIRECTOR DIVERSITY Unavailable Unavailable Wesley, H Kellie DIRECTOR DIVERSITY Unavailable Unavailable Wesley, H Kellie DIRECTOR DIVERSITY Unavailable Unavailable Wesley, H Kellie DIRECTOR DIVERSITY Unavailable Unavailable Wesley, H Kellie DIRECTOR DIVERSITY Unavailable Unavailable Wesley, H Kellie DIRECTOR DIVERSITY Unavailable Unavailable Wesley, H Kellie DIRECTOR DIVERSITY Unavailable Unavailable Wesley, H Kellie DIRECTOR DIVERSITY Unavailable Unavailable Wesley, H Kellie DIRECTOR DIVERSITY Unavailable Unavailable Wesley, H Kellie DIRECTOR DIVERSITY Unavailable Unavailable Wesley, H Kellie DIRECTOR DIVERSITY Unavailable Unavailable Wesley, H Kellie DIRECTOR DIVERSITY Unavailable Unavailable Wesley, H Kellie DIRECTOR DIVERSITY Unavailable Unavailable Wesley, H Kellie DIRECTOR DIVERSITY Unavailable Unavailable Wesley, H Kellie DIRECTOR DIVERSITY Unavailable Unavailable Wesley, H Kellie DIRECTOR DIVERSITY Unavailable Unavailable Wesley, H Kellie DIRECTOR DIVERSITY Unavailable Unavailable Wesley, H Kellie DIRECTOR DIVERSITY Unavailable Unavailable Wesley, H Kellie DIRECTOR DIVERSITY Unavailable Unavailable Wesley, H Kellie DIRECTOR DIVERSITY Unavailable Unavailable Wesley, H Kellie DIRECTOR DIVERSITY Unavailable Unavailable Wesley, H Ekllie DIRECTOR DIVERSITY Unavailable Unavailable Wesley, H Kellie DIRECTOR DIVERSITY Unavailable Unavailable Wesley, H Kellie DIRECTOR DIVERSITY Unavailable Unavailable Wesley, H Kellie DIRECTOR DIVERSITY Unavailable Unavailable Wesley, H Kellie DIRECTOR DIVERSITY Unavailable Unavailable Wesley, H Kellie DIRECTOR DIVERSITY Unavailable Unavailable Wesley, H Kellie DIRECTOR DIVERSITY Unavailable Unavailable Wesley, H Kellie DIRECTOR DIVERSITY Unavailable Unavailable Wesley, H Kellie DIRECTOR DIVERSITY Unavailable Unavailable Wesley, H Kellie DIRECTOR DIVERSITY Unavailable Unavailable Wesley, H Kellie DIRECTOR DIVERSITY Unavailable Unavailable Wesley, H Kellie DIRECTOR DIVERSITY Unavailable Unavailable Wesley, H Kellie DIRECTOR DIVERSITY Unavailable Unavailable Wesley, H Kellie DIRECTOR DIVERSITY Unavailable Unavailable Wesley, H Kellie DIRECTOR DIVERSITY Unavailable Unavailable Wesley, H Kellie DIRECTOR DIVERSITY Unavailable Unavailable Wesley, H Kellie DIRECTOR DIVERSITY Unavailable Unavailable Wesley, H Kellie DIRECTOR DIVERSITY Unavailable Unavailable Wesley, H Kellie DIRECTOR DIVERSITY Unavailable Unavailable Wesley, H Kellie DIRECTOR DIVERSITY Unavailable Unavailable Wesley, H Kellie DIRECTOR DIVERSITY Unavailable Unavailable Wesley, H Kellie DIRECTOR DIVERSITY Unavailable Unavailable Wesley, H Kellie DIRECTOR DIVERSITY Unavailable Unavailable Wesley, H Kellie DIRECTOR DIVERSITY Unavailable Unavailable Wesley, H Kellie DIRECTOR DIVERSITY Unavailable Unavailable Wesley, H Kellie DIRECTOR DIVERSITY Unavailable Unavailable Wesley, H Kellie DIRECTOR DIVERSITY Unavailable Unavailable Wesley, H Kellie DIRECTOR DIVERSITY Unavailable Unavailable Wesley, H Kellie DIRECTOR DIVERSITY Unavailable Unavailable Wesley, H Kellie DIRECTOR DIVERSITY Unavailable Unavailable Wesley, H Kellie DIRECTOR DIVERSITY Unavailable Unavailable Wesley, H Kellie DIRECTOR DIVERSITY Unavailable Unavailable Wesley, H Kellie DIRECTOR DIVERSITY Unavailable Unavailable Wesley, H Kellie DIRECTOR DIVERSITY Unavailable Unavailable Wesley, H Kellie DIRECTOR DIVERSITY Unavailable Unavailable Pako, Mariae Oracle DIRECTOR DIVERSITY Unavailable Unavailable [place], Mariae Oracle DIRECTOR DIVERSITY Unavailable Unavailable [place], Mariae Oracle DIRECTOR DIVERSITY Unavailable Unavailable Pako, Mariae Oracle DIRECTOR DIVERSITY Unavailable Unavailable [place], Mariae Donna DIRECTOR DIVERSITY Unavailable Unavailable Pako, Mariae Donna DIRECTOR DIVERSITY Unavailable Unavailable Pako, Mariae Donna DIRECTOR DIVERSITY Unavailable Unavailable [place], Mariae Donna DIRECTOR DIVERSITY Unavailable Unavailable Pako, Mariae Donna DIRECTOR DIVERSITY Unavailable Unavailable [place], Mariae Oracle DIRECTOR DIVERSITY Unavailable Unavailable [place], Mariae Donna DIRECTOR DIVERSITY Unavailable Unavailable [place], Mariae Oracle DIRECTOR DIVERSITY Unavailable Unavailable Pako, Mariae Oracle DIRECTOR DIVERSITY Unavailable Unavailable [place], Mariae Donna DIRECTOR DIVERSITY Unavailable Unavailable Pako, Mariae Donna DIRECTOR DIVERSITY Unavailable Unavailable Pako, Mariae Oracle DIRECTOR DIVERSITY Unavailable Unavailable Pako, Mariae Oracle DIRECTOR DIVERSITY Unavailable Unavailable Rachid, Adebayo Morrissey MD Unavailable [...] is protected by Article 27-F of the [place] State Public Health law. If you continue you may have access to information: Regarding HIV / AIDS; Provided by facilities licensed or operated by the [facility] Office of Mental Health; or Provided by the [facility] Office for People With Developmental Disabilities. If such information is present, then the following [facility] mandated warning applies: This information has been [...] law may result in a fine or half-way sentence or both. A general authorization for the release of medical or other information is NOT sufficient authorization for further disc losure. Allergies and Adverse Reactions Type Description Substance Reaction Status Data Source(s ) Drug allergy LYRICA LYRICA [facility] Drug allergy DILAUDID DILAUDID [facility] Propensity to adverse reactions NEURONTIN NEURONTIN [facility] Propensity to adverse reactions KEFLEX KEFLEX [facility] Family History Family Member Name Family Member Gender Family Member Status Date o f Status Description Data Source(s) Unknown Unknown Problem MEDENT ([facility], ) Encounters Encounter Providers Location Date Indications Data Source(s ) Outpatient<td ID="encounterTypeDescripti onID0">STANDARD OV</td><td>Yuni Rashid MD</td><td[facility]</td><td>04/26/2021</td><td>1:04PM</td><td>03/27/2021 11:59PM</td><td><content ID="encounterDiagnosisID0-0">Chronic Pain</content>, <content ID="encounterDiagnosisID0-1">Nausea</content>, <content ID="encounterDiagnosisID0-2">Acquired Deformity - Foot Drop</content></td> Attender: [facility] 04[facility] 01:04:00 PM EDT - 03/27/2021 11:59:00 PM EDT NauseaChronic PainAcquired Deformity - F oot Drop [facility] Nausea Chronic Pain Acquired Deformity - Foot Drop Outpatient Attender: Yuni Archibald banda: Yuni Rashid MDConsultant: Yuni Rashid MD 03/27/2021 03:27:00 PM EDT - 03/27/2021 03:37:0 0 PM EDT [facility] <td ID="encounterTypeDescriptionID1">WRI TE-IN (SAME DAY)</td><td>Yuni Rashid MD</td><td>[facility]</td><td>03/27/2021</td><td>12:55PM</td><td>1:34PM</td><td><content ID="encounterDiagnosisID1-0">Constipation</content>, <content ID="encounterDiagnosisID1-1">Classic Migraine W/ Aura W/ Intractable Migraine with Status Migrainosus</content>, <content ID="encounterDiagnosisID1- 2">Nicotine Dependence Uncomplicated</content>, <content ID="encounterDiagnosisID1-3">Chronic Pain</content></td>Outpatient Attender: Yuni Rashid MD [facility] 03/27/2021 12:55:00 PM EDT - 03/27/2021 01:34:00 PM EDT Chronic PainNicotine Dependence Uncompli catedClassic Migraine W/ Aura W/ Intractable Migraine with Status MigrainosusConstipationChronic PainNicotine Dependence UncomplicatedClassic Migraine W/ Aura W/ Intractable Migraine with Status MigrainosusConstipation [facility] ([facility]) Chronic Pain Nicotine Dependence Uncomplicated Classic Migraine W/ Aura W/ Intractable Migraine with Status Migrainosus Constipation Chronic Pain Nicotine Dependence Uncomplicated Classic Migraine W/ Aura W/ Intractable Migraine with Status Migrainosus Constipation Outpatient<td ID="encounterTypeDescripti onID2">WRITE-IN (SAME DAY)</td><td>Yuni Rashid MD</td><td>[facility]</td><td>02/21/2021</td><td>2:30PM</td><td>3:21PM</td><td><content ID="encounterDiagnosisID2-0">Common Migraine Without Aura Without Intractable Migraine</content>, <content ID="encounterDiagnosisID2-1">Nausea</content>, <content ID="encounterDiagnosisID2-2">Anemia Normochromic, Normocytic</content>, <content ID="encounterDiagnosisID2-3">Chronic Pain</content>, <content ID="encounterDiagnosisID2-4">Vaping Related Disorder</content></td> Attender: Yuni Rashid MD [facility], 02/21/2021 02:30:00 PM EDT - 02/21/2021 03:21:00 PM EDT Vaping Related DisorderChronic PainAnemi a Normochromic, NormocyticNauseaCommon Migraine Without Aura Without Intractable MigraineVaping Related DisorderChronic PainAnemia Normochromic, NormocyticNausea Common Migraine Without Aura Without Intractable Migraine [facility] ([facility]) Vaping Related Disorder Chronic Pain Anemia Normochromic, Normocytic Nausea Common Migraine Without Aura Without Int ractable Migraine Vaping Related Disorder Chronic Pain Anemia Normochromic, Normocytic Nausea Common Migraine Without Aura Without Int ractable Migraine Outpatient<td ID="encounterTypeDescripti onID3">EXTENDED VISIT</td><td>Donna Diaz NP</td><td>[facility]</td><td>01/24/2021</td><td>1:05PM</td><td>1:40PM</td><td><content ID="encounterDiagnosisID3-0">Chronic Pain</content></td> Attender: Donna Diaz NP [facility] 01/24/2021 01:05:00 PM EST - 01/24/2021 01:40:00 PM EST Chronic PainChronic PainChronic Pain [facility] ([facility]) Chronic Pain Chronic Pain Chronic Pain Outpatient<td ID="encounterTypeDescripti onID4">STANDARD OV</td><td>Donna Diaz NP</td><td>[facility]</td><td>12/29/2020</td><td>11:09AM</td><td>11:42AM</td><td><content ID="encounterDiagnosisID4-0">Migraine Headache</content>, <content ID="encounterDiagnosisID4-1">Chronic Pain</content></td> Attender: Donna Diaz NP [facility] 12/29/2020 11:09:00 AM EST - 12/29/2020 11:42:00 AM EST Chronic PainMigraine HeadacheChronic Alexander nMigraine HeadacheChronic PainMigraine HeadacheChronic PainMigraine Headache [facility] ([facility]) Chronic Pain Migraine Headache Chronic Pain Migraine Headache Chronic Pain Migraine Headache Chronic Pain Migraine Headache <td ID="encounterTypeDescriptionID5">EXT ENDED VISIT</td><td>Donna Diaz NP</td><td>[facility]</td><td>11/28/2020</td><td>10:28AM</td><td>11:07AM</td><td><content ID="encounterDiagnosisID5-0">Psychogenic Formication</content>, <content ID="encounterDiagnosisID5-1">Chronic Pain</content></td>Outpatient Attender: Donna Diaz NP [facility] 11/28/2020 10:28:00 AM EST - 11/28/2020 11:07:00 AM EST Chronic PainPsychogenic FormicationChron ic PainPsychogenic FormicationChronic PainPsychogenic FormicationChronic PainPsychogenic Formication [facility] ([facility]) Chronic Pain Psychogenic Formication Chronic Pain Psychogenic Formication Chronic Pain Psychogenic Formication Chronic Pain Psychogenic Formication Recurring Patient Attender: Joao Mendoza MDReferrer: Kellie Olson NP 11/14/2020 11:16:00 AM EST [facility] Outpatient Attender: Donna MANUEL ttender: Yuni Rashid MDConsultant: Yuni Rashid MD 10/28/2020 11:14:00 AM EST - 10/28/2020 12:14:0 0 PM EST [facility] Outpatient<td ID="encounterTypeDescripti onID6">STANDARD OV</td><td>Donna Diaz NP</td><td>[facility]</td><td>10/28/2020</td><td>9:52AM</td><td>10:32AM</td><td><content ID="encounterDiagnosisID6-0">Atypical Chest Pain</content>, <content ID="encounterDiagnosisID6-1">Migraine Headache</content>, <content ID="encounterDiagnosisID6-2">Chronic Pain</content></td> Attender: Donna Diaz NP [facility] 10/28/2020 09:52:00 AM EST - 10/28/2020 10:32:00 AM EST Chronic PainMigraine HeadacheChronic Alexander nMigraine HeadacheChronic PainMigraine HeadacheChronic PainMigraine HeadacheAtypical Chest PainAtypical Chest PainAtypical Chest PainAtypical Chest Pain [facility] ([facility]) Chronic Pain Migraine Headache Chronic Pain Migraine Headache Chronic Pain Migraine Headache Chronic Pain Migraine Headache Atypical Chest Pain Atypical Chest Pain Atypical Chest Pain Atypical Chest Pain <td ID="encounterTypeDescriptionID7">INO UAL PHYSICAL EXAM</td><td>Donna Diaz NP</td><td>[facility]</td><td>09/30/2020</td><td>9:38AM</td><td>10:37AM</td><td><content ID="encounterDiagnosisID7-0">Routine History & Physical Adult Without Abnormal Findings</content>, <content ID="encounterDiagnosisID7-1">Atypical Chest Pain</content></td>Outpatient Attender: Donna Diaz NP [facility] 09/30/2020 09:38:00 AM EST - 09/30/2020 10:37:00 AM ES T Atypical Chest PainAtypical Chest PainAtypical Chest PainAtypical Chest PainAtypical Chest PainRoutine History & Physical Adult Without Abnormal FindingsRoutine History & Physical Adult Without Abnormal FindingsRoutine History & Physical Adult Without Abnormal FindingsRoutine History & Physical Adult Without Abnormal FindingsRoutine History & Physical Adult Without Abnormal Findings [facility] ([facility]) Atypical Chest Pain Atypical Chest Pain Atypical Chest Pain Atypical Chest Pain Atypical Chest Pain Routine History & Physical Adult Without Abnormal Findings Routine History & Physical Adult Without Abnormal Findings Routine History & Physical Adult Without Abnormal Findings Routine History & Physical Adult Without Abnormal Findings Routine History & Physical Adult Without Abnormal Findings <td ID="encounterTypeDescriptionID8">EXT ENDED VISIT</td><td>Donna Diaz NP</td><td>[facility]</td><td>09/01/2020</td><td>10:50AM</td><td>11:42AM</td><td><content ID="encounterDiagnosisID8-0">Chronic Pain</content></td>Outpatient Attender: Donna Diaz NP [facility], 09/01/2020 10:50:00 AM EDT - 09/01/2020 11:42:00 AM EDT Chronic PainChronic PainChronic PainChro susan PainChronic PainChronic Pain [facility] ([facility]) Chronic Pain Chronic Pain Chronic Pain Chronic Pain Chronic Pain Chronic Pain <td ID="encounterTypeDescriptionID9">STA NDARD OV</td><td>Donna Diaz NP</td><td>[facility]</td><td>08/02/2020</td><td>4:01PM</td><td>4:46PM</td><td><content ID="encounterDiagnosisID9-0">Chronic Pain</content></td>Outpatient Attender: Donna Diaz NP [facility] 08/02/2020 04:01:00 PM EDT - 08/02/2020 04:46:00 PM EDT Chronic PainChronic PainChronic PainChro susan PainChronic PainChronic PainChronic Pain [facility]) Chronic Pain Chronic Pain Chronic Pain Chronic Pain Chronic Pain Chronic Pain Chronic Pain Outpatient Attender: Yuni Archibald banda: Yuni Rashid MDConsultant: STAFF NON 06/30/2020 02:56:00 PM EDT - 06/30/2020 03:06:00 PM EDT [facility] Immunizations Vaccine Date Status Description Data Source(s) This CVX code allows reporting of a vacc ination when formulation is unknown (for example, when recording a Influenza vaccination when noted on a vaccination card) 03/27/2021 01:27:00 PM EDT completed <td ID="Sdllugvbnqlgu-Snydnwzbxlw-FK0">Influenza,NOS</td><td ID="ImmunizationDose- 3">3</td><td>03/27/2021</td><td ID="Qkfsbtxjfelsz-QeeuhZpld-MP8"></td><td></td> <td ID="Lribpborvegkh-Pwmtlo-HB4">Complete (Refused - Patient objection)</td><td>[facility]</td><td ID="Gzphuwhzihxam-Cawre-Utks-Comment-ID3"></td> [facility]) 02/28/2021 01:28:00 PM EDT completed <td ID="Oqbtrukdxntwz-Ezkijpallun-NA5">COVID-19 ISACC</td><td ID="ImmunizationDose- 0">1</td><td>02/28/2021</td><td ID="Eijkcrdkjvsaf-YrubeBxer-US1"></td><td></td> <td ID="Ubyfwwsosvirv-Zxtzfr-PC3">Complete (Reported)</td><td>Patient</td><td ID="Wujqltzhuwdkr-Qwxjk-Nkdl-Comment-ID0"></td> [facility]) COVID-19 VACCINE Scotty 02/28/2021 12:00:00 AM EDT completed [employer] Vaccine Series Complete: YESThis Data wa s Submitted to [facility] [employer]. Medications Medication Brand Name Start Date Product [...] hydrochloride 10 MG Oral Tablet [Percocet] NGUYEN ([facility]) gabapentin 100 MG Oral Capsule Gabapentin 100 MG Oral Capsule Gabapentin 100 MG Oral Capsule 03/27/2021 12:00:00 AM EDT activ e gabapentin 100 MG Oral Capsule [facility] ([facility]) Ondansetron 4 MG Disintegrating Oral Tab let Ondansetron 4 MG Oral Tablet Disintegrating Ondansetron 4 MG Oral Tablet Disintegrating 03/27/2021 12:00:00 AM EDT active ondansetron 4 MG Disintegrating Oral Tablet [facility] ([facility]) 24 HR metoprolol succinate 100 MG Extend ed Release Oral Tablet Metoprolol Succinate ER 100 MG Oral Tablet Extended Release 24 Hour Metoprolol Succinate ER 100 MG Oral Tablet Extended Release 24 Hour 03/27/2021 12:00:00 AM EDT aborted 24 HR metoprolol succinate 1 00 MG Extended Release Oral Tablet [facility] ([facility]) Acetaminophen 325 MG / Oxycodone Hydroch loride 10 MG Oral Tablet [Percocet] Percocet 10-325 MG Oral Tablet Percocet 10-325 MG Oral Tablet 03/27/2021 12:00:00 AM EDT aborted acetaminophen 325 MG / oxycodone hydrochloride 10 MG Oral Tablet [Percocet] [facility] ([facility]) gabapentin 800 MG Oral Tablet Gabapentin 800 MG Oral T ablet Gabapentin 800 MG Oral Tablet 03/27/2021 12:00:00 AM EDT active gabapentin 800 MG Oral Tablet N[facility] ([facility]) Acetaminophen 325 MG / Oxycodone Hydroch loride 10 MG Oral Tablet [Percocet] Percocet 10-325 MG Oral Tablet Percocet 10-325 MG Oral Tablet 02/21/2021 12:00:00 AM EDT aborted acetaminophen 325 MG / oxycodone hydrochloride 10 MG Oral Tablet [Percocet] [facility] ([facility]) Sumatriptan 100 MG Oral Tablet SUMAtriptan Succinate 1 00 MG Oral Tablet SUMAtriptan Succinate 100 MG Oral Tablet 02/21/2021 12:00:00 AM EDT active sumatriptan 100 MG Oral Tablet [facility]) Acetaminophen 325 MG / Oxycodone Hydroch loride 10 MG Oral Tablet [Percocet] Percocet 10-325 MG Oral Tablet Percocet 10-325 MG Oral Tablet 01/24/2021 12:00:00 AM EST aborted acetaminophen 325 MG / oxycodone hydrochloride 10 MG Oral Tablet [Percocet] [facility] ([facility]) Acetaminophen 325 MG / Oxycodone Hydroch loride 10 MG Oral Tablet [Percocet] Percocet 10-325 MG Oral Tablet Percocet 10-325 MG Oral Tablet 12/29/2020 12:00:00 AM EST aborted acetaminophen 325 MG / oxycodone hydrochloride 10 MG Oral Tablet [Percocet] [facility]) 24 HR metoprolol succinate 100 MG Extend ed Release Oral Tablet Metoprolol Succinate ER 100 MG Oral Tablet Extended Release 24 Hour Metoprolol Succinate ER 100 MG Oral Tablet Extended Release 24 Hour 12/29/2020 12:00:00 AM EST 1 aborted 24 HR metoprolol succinate 1 00 MG Extended Release Oral Tablet [facility]) Ondansetron 4 MG Disintegrating Oral Tab let Ondansetron 4 MG Oral Tablet Disintegrating Ondansetron 4 MG Oral Tablet Disintegrating 12/29/2020 12:00:00 AM EST aborted ondansetron 4 MG Disintegrating Oral Tablet [facility] ([facility]) Ajovy 225 MG/1.5ML Subcutaneous Solution Prefilled Syr cat Ajovy 225 MG/1.5ML Subcutaneous Solution Prefilled Syringe 11/28/2020 12:00:00 AM EST aborted 1.5 ML fremanezumab-vfrm 150 MG/ ML Prefilled Syringe [Ajovy] [facility] ([facility]) Acetaminophen 325 MG / Oxycodone Hydroch loride 10 MG Oral Tablet [Percocet] Percocet 10-325 MG Oral Tablet Percocet 10-325 MG Oral Tablet 11/28/2020 12:00:00 AM EST aborted acetaminophen 325 MG / oxycodone hydrochloride 10 MG Oral Tablet [Percocet] [facility] ([facility]) Sumatriptan 100 MG Oral Tablet SUMAtriptan Succinate 1 00 MG Oral Tablet SUMAtriptan Succinate 100 MG Oral Tablet 10/28/2020 12:00:00 AM EST aborted [facility]atriptan 100 MG [facility] Acetaminophen 325 MG / Oxycodone Hydroch loride 10 MG Oral Tablet [Percocet] Percocet 10-325 MG Oral Tablet Percocet 10-325 MG Oral Tablet 10/28/2020 12:00:00 AM EST aborted acetaminophen 325 MG / oxycodone hydrochloride 10 MG Oral Tablet [Percocet] [facility] ([facility]) gabapentin 100 MG Oral Capsule Gabapentin 100 MG Oral Capsule Gabapentin 100 MG Oral Capsule 09/30/2020 12:00:00 AM EST abort ed gabapentin 100 MG Oral Capsule [facility]) gabapentin 800 MG Oral Tablet Gabapentin 800 MG Oral T ablet Gabapentin 800 MG Oral Tablet 09/30/2020 12:00:00 AM EST aborte d gabapentin 800 MG Oral Tablet [facility]) Acetaminophen 325 MG / Oxycodone Hydroch loride 10 MG Oral Tablet [Percocet] Percocet 10-325 MG Oral Tablet Percocet 10-325 MG Oral Tablet 09/30/2020 12:00:00 AM EST aborted acetaminophen 325 MG / oxycodone hydrochloride 10 MG Oral Tablet [Percocet] [facility]) Ondansetron 4 MG Disintegrating Oral Tab let Ondansetron 4 MG Oral Tablet Disintegrating Ondansetron 4 MG Oral Tablet Disintegrating 09/30/2020 12:00:00 AM EST aborted ondansetron 4 MG Disintegrating Oral Tablet [facility]) 24 HR metoprolol succinate 100 MG Extend ed Release Oral Tablet Metoprolol Succinate ER 100 MG Oral Tablet Extended Release 24 Hour Metoprolol Succinate ER 100 MG Oral Tablet Extended Release 24 Hour 09/30/2020 12:00:00 AM EST 1 aborted 24 HR metoprolol succinate 1 00 MG Extended Release Oral Tablet [facility] ([facility]) Sumatriptan 100 MG Oral Tablet SUMAtriptan Succinate 1 00 MG Oral Tablet SUMAtriptan Succinate 100 MG Oral Tablet 09/01/2020 12:00:00 AM EDT aborted [facility]ript[facility] Acetaminophen 325 MG / Oxycodone Hydroch loride 10 MG Oral Tablet [Percocet] Percocet 10-325 MG Oral Tablet Percocet 10-325 MG Oral Tablet 09/01/2020 12:00:00 AM EDT aborted acetaminophen 325 MG / oxycodone hydrochloride 10 MG Oral Tablet [Percocet] [facility] ([facility]) 24 HR metoprolol succinate 100 MG Extend ed Release Oral Tablet Metoprolol Succinate ER 100 MG Oral Tablet Extended Release 24 Hour Metoprolol Succinate ER 100 MG Oral Tablet Extended Release 24 Hour 08/02/2020 12:00:00 AM EDT 1 aborted 24 HR metoprolol succinate 1 00 MG Extended Release Oral Tablet [facility] ([facility]) Ajovy 225 MG/1.5ML Subcutaneous Solution Prefilled Syr cat Ajovy 225 MG/1.5ML Subcutaneous Solution Prefilled Syringe 08/02/2020 12:00:00 AM EDT aborted 1.5 ML fremanezumab-vfrm 150 MG/ ML Prefilled Syringe [Ajovy] [facility] ([facility]) Acetaminophen 325 MG / Oxycodone Hydroch loride 10 MG Oral Tablet [Percocet] Percocet 10-325 MG Oral Tablet Percocet 10-325 MG Oral Tablet 08/02/2020 12:00:00 AM EDT aborted acetaminophen 325 MG / oxycodone hydrochloride 10 MG Oral Tablet [Percocet] [facility] ([facility]) Acetaminophen 325 MG / Oxycodone Hydroch loride 10 MG Oral Tablet [Percocet] Percocet 10-325 MG Oral Tablet Percocet 10-325 MG Oral Tablet 07/05/2020 12:00:00 AM EDT aborted acetaminophen 325 MG / oxycodone hydrochloride 10 MG Oral Tablet [Percocet] [facility] ([facility]) Acetaminophen 325 MG / Oxycodone Hydroch loride 10 MG Oral Tablet [Percocet] Percocet 10-325 MG Oral Tablet Percocet 10-325 MG Oral Tablet 06/30/2020 12:00:00 AM EDT aborted acetaminophen 325 MG / oxycodone hydrochloride 10 MG Oral Tablet [Percocet] [facility] ([facility]) Sumatriptan 100 MG Oral Tablet SUMAtriptan Succinate 1 00 MG Oral Tablet SUMAtriptan Succinate 100 MG Oral Tablet 05/02/2020 12:00:00 AM EDT aborted sumatriptan 100 MG [facility] 24 HR metoprolol succinate 100 MG Extend ed Release Oral Tablet Metoprolol Succinate ER 100 MG Oral Tablet Extended Release 24 Hour Metoprolol Succinate ER 100 MG Oral Tablet Extended Release 24 Hour 05/02/2020 12:00:00 AM EDT 1 aborted 24 HR metoprolol succinate 1 00 MG Extended Release Oral Tablet [facility] ([facility]) Ajovy 225 MG/1.5ML Subcutaneous Solution Prefilled Syr cat Ajovy 225 MG/1.5ML Subcutaneous Solution Prefilled Syringe 04/28/2020 12:00:00 AM EDT aborted 1.5 ML fremanezumab-vfrm 150 MG/ ML Prefilled Syringe [Ajovy] [facility] ([facility]) Ondansetron 4 MG Disintegrating Oral Tab let Ondansetron 4 MG Oral Tablet Disintegrating Ondansetron 4 MG Oral Tablet Disintegrating 04/01/2020 12:00:00 AM EDT aborted ondansetron 4 MG Disintegrating Oral Tablet [facility] ([facility]) gabapentin 800 MG Oral Tablet Gabapentin 800 MG Oral T ablet Gabapentin 800 MG Oral Tablet 04/01/2020 12:00:00 AM EDT aborte d gabapentin 800 MG Oral Tablet [facility] ([facility]) gabapentin 100 MG Oral Capsule Gabapentin 100 MG Oral Capsule Gabapentin 100 MG Oral Capsule 04/01/2020 12:00:00 AM EDT abort ed gabapentin 100 MG Oral Capsule [facility] ([facility]) Insurance Providers Payer name Policy type / Coverage type Policy ID Covered libertarian ID Covered libertarian's relationship to de paz Policy De Paz Plan Information [facility] F [id number] SELF [id number] [facility] U [id number] Spouse [id number] [facility] F [id number] SPOUSE [id number] [facility] F [id number] SELF [id number] [facility] [id number] SELF [id number] [email or web address] 2 [id number] [facility] [id number] [facility] [id number] MVP Options F [id number] SELF [id number] MVP Health Plan [facility] Individual Policy 0 [id number] Se lf 0 [employer] [facility] Individual Policy 0 [id number] Se lf 0 [employer] [facility] Individual Policy 0 [id number] Se lf 0 [employer] [facility] Individual Policy 0 [id number] Se lf 0 [employer] [facility] Individual Policy 0 [id number] Se lf 0 [employer] [facility] Individual Policy 0 [id number] Se lf 0 [employer] [facility] Individual Policy 0 [id number] Se lf 0 [facility] Individual Policy 0 [id number] Se lf 0 [facility] Individual Policy 0 [id number] Se lf 0 [facility] Individual Policy 0 [id number] Se lf 0 [facility] Individual Policy 0 [id number] Se lf 0 [employer] [facility] Individual Policy 0 [id number] Se lf 0 [employer] [facility] Individual Policy 0 [id number] Se lf 0 MVP Medicaid F [id number] SELF [id number] [facility] [id number] [facility] [id number] MVP Health Maintenance Organization (HMO) [id number] Self [id number] [facility] Health Maintenance Organization (HMO) 0 [id number] MVP MEDICAID HMO -PHYSICIAN [id number] 18 [id number] [facility] O [id number] S [id number] N REGIONAL CLAIMS [place]-O/P [id number] 01 [id number] [facility] MEDICAID HMO -O/P [id number] 18 [id number] [facility]ANCE [facility]-O/P [id number] 18 [id number] ANSI-Not a Secondary Insurance [id number] Health Plan [facility] Individual Policy 0 [id number] Se lf 0 [employer] Health Plan [facility] Individual Policy 0 [id number] Se lf 0 MV Health Plan [facility] Individual Policy 0 [id number] Se lf 0 MVP Health [facility] Individual Policy 0 [id number] Se lf 0 MVP Health [facility] Individual Policy 0 [id number] Se lf 0 ANSI-Not a Secondary Insurance [id number] [facility] [id number] 2 [id number] [facility] [facility] REG O [id number] S [id number] [facility] HUMANA - O/P [id number] 01 [id number] [facility] LIZ O [id number] S [id number] [facility] [id number] 2 [id number] SELF PAY 2 UNAVAILABLE 1 UNAVAILA BLE SELF PAY ONLY SP [id number] [facility] O [id number] [facility] O [id number] U [id number] Problems, Conditions, and Diagnoses Code Display Name Description Problem Type Effective Dates Data Source(s) G894 Chronic pain syndrome Chronic pain syndrome Diagnosis 03/27/2021 03:27:00 PM EDT [facility] R079 Chest pain, unspecified Chest pain, unspecified Diagno sis 10/28/2020 11:14:00 AM EST [facility] [id number] Psychogenic formication (disorder) Psychogenic Formica tion Problem 11/28/2020 12:00:00 AM EST [facility] ([facility]) [id number] Psychogenic formication (disorder) Psychogenic Formica tion Problem 11/28/2020 12:00:00 AM EST [facility] ([facility]) 843804133 Psychogenic formication (disorder) Psychogenic Formica tion Problem 11/28/2020 12:00:00 AM EST [facility] ([facility]) 713920730 Psychogenic formication (disorder) Psychogenic Formica tion Problem 11/28/2020 12:00:00 AM EST [facility] ([facility]) 786.50 Atypical Chest Pain Atypical Chest Pain Finding 1 12/11/2019 12:00:00 AM EST [facility] ([facility]) 786.50 Atypical Chest Pain Atypical Chest Pain Finding 1 12/11/2019 12:00:00 AM EST [facility] ([facility]) 786.50 Atypical Chest Pain Atypical Chest Pain Finding 1 12/11/2019 12:00:00 AM EST [facility] ([facility]) 786.50 Atypical Chest Pain Atypical Chest Pain Finding 1 12/11/2019 12:00:00 AM EST [facility] ([facility]) 786.50 Atypical Chest Pain Atypical Chest Pain Finding 1 12/11/2019 12:00:00 AM EST [facility] ([facility]) Surgeries/Procedures No Information Results ID Date Data Source [id number] 03/27/2021 01:35[facility] Name Value Range Interpretation Code Description Data Moriah rce(s) Supporting Document(s) Reported Physicians See Note Reported Physici ans [facility] ([facility]) Note: Reported Physicians:Ordering: Yuni Dominguez AAttending: RACHID, JOCELYNReferring: RACHID, JOCELYNConsulting: RACHID, JOCELYNCopy To: Rachid Yuni ID Date Data Source [id number] 03/27/2021 01:35:00 PM EDT [facility] ([facility]) Name Value Range Interpretation Code Description Data Moriah rce(s) Supporting Document(s) Summary Report (Summary) FINAL Summary Rep ort (Summary) [facility] ([facility]) Note: TOXASSURE SELECT 13 (MW) Test Result [...] . PDF [facility] ([facility]) Note: Responsible Observer: ko) ID Date Data Source [id number] 04/03/2021 06:26:00 AM EDT [facility] Name Value Range Interpretation Code Description Data Moriah rce(s) Supporting Document(s) Drugs identified in Urine FINAL [facility] TOXASSURE SELECT 13 (MW) Test Result [...] clinical consultation, please call . Report . [facility] Hospit al ID Date Data Source [id number] 03/14/2021 09:27:00 PM FELIBERTO [facility] ([facility]) Name Value Range Interpretation Code Description Data Moriah rce(s) Supporting Document(s) Reported Physicians See Note Reported Physici august CEDILLO ([facility]) Note: Reported Physicians:Ordering: JACQUIE CANNON [phone], ATUL Kelsey,Attending: Alfonzo RIVERA To: Alfonzo RIVERA To: Yuni Rashid ID Date Data Source [id number] 03/14/2021 09:27:00 PM EDT [facility] ([facility]) Name Value Range Interpretation Code Description Data Moriah rce(s) Supporting Document(s) CHI COVID ANTIGEN NEGATIVE Normal CHI COVID ANTI GEN [facility] ([facility]) Note: The Chi SARS Antigen KAMRAN does no t differentiate between SARS-CoV and SARS-CoV-2. Negative results do not rule out COVID-19 and should not be used as the sole basis for treatment. Negative results should be considered in the context of a patient's recent exposure, history and the presence of clinical signs and symptoms consistent with COVID-19. ID Date Data Source [id number] 03/14/2021 09:27:00 PM EDT [facility] Name Value Range Interpretation Code Description Data Moriah rce(s) Supporting Document(s) SARS COVID ANTIGEN NEGATIVE [facility] This lab was ordered by CHRISTA brennan nd reported by [facility]. ID Date Data Source [id number] 03/14/2021 09:17:00 PM EDT [facility] ([facility]) Name Value Range Interpretation Code Description Data Moriah rce(s) Supporting Document(s) Reported Physicians See Note Reported Physici ans [facility] ([facility]) Note: Reported Physicians:Ordering: KASI SEO [phone]: Alfonzo RIVERA To: Alfonzo RIVERA To: Hemant DALTON To: Yuni Rashid ID Date Data Source [id number] 03/14/2021 09:17:00 PM EDT [facility] ([facility]) Name Value Range Interpretation Code Description Data Moriah rce(s) Supporting Document(s) CORONAVIRUS 2019 NASOPHARYGEAL See Note CORON AVIRUS 2019 NASOPHARYGEAL [facility] ([facility]) Note: ASSAY INFORMATION: Real Time RT-PC RNOTE: The COVID-19 assay has been cleared by the U.S. Food and DrugAdministration under the Emergency Use Authorization (EUA). [facility] and [facility] are designated as high complexity laboratories by theClinical Laboratory Improvement Amendments of 1988(CLIA) and are qualified toperform this test.Not Detected ID Date Data Source [id number] 03/14/2021 09:17:00 PM EDT [facility] Name Value Range Interpretation Code Description Data Moriah rce(s) Supporting Document(s) SARS-CoV-2 (COVID-19) RNA [Presence] in Respiratory specimen by MARIA D with probe detection Not Detected [facility] This lab was ordered by [facility] and reported by [employer] ID Date Data Source [id number] 02/18/2021 03:55:00 PM EDT [facility] ([facility]) Name Value Range Interpretation Code Description Data Moriah rce(s) Supporting Document(s) Reported Physicians See Note Reported Physici ans [facility] ([facility]) Note: Reported Physicians:Ordering: Barbie Sarkar [phone] MDAttending: Linda MajaCopy To: Linda MajaCopy To: Yuni Rashid ID Date Data Source [id number] 02/18/2021 03:55:00 PM EDT [facility] ([facility]) Name Value Range Interpretation Code Description Data Moriah rce(s) Supporting Document(s) HCG, SERUM QUALITATIVE NEGATIVE Normal HCG, SERUM QU ALITATIVE [facility]) ID Date Data Source [id number] 02/18/2021 03:55:00 PM EDT [facility] ([facility]) Name Value Range Interpretation Code Description Data Moriah rce(s) Supporting Document(s) Reported Physicians See Note Reported Physici [facility] ([facility]) Note: Reported Physicians:Ordering: Barbie Sarkar [phone], Maja MDAttending: Lundmagalig-Philippe MajaCopy To: Linda MajaCopy To: Yuni Rashid ID Date Data Source [id number] 02/18/2021 03:55:00 PM EDT [facility] ([facility]) Name Value Range Interpretation Code Description Data Moriah rce(s) Supporting Document(s) AST/SGOT 14 U/L Normal AST/SGOT [facility] ([facility]) ALT/SGPT 17 U/L Normal ALT/SGPT [facility] ([facility]) Alkaline phosphatase [Enzymatic activity/volume] in Se rum, Plasma or Blood 74 U/L Normal ALKALINE PHOSPHATASE [facility]) BILIRUBIN,TOTAL 0.4 MG/DL Normal BILIRUBIN,TOTAL GREE [place] ([facility]) TOTAL PROTEIN 7.4 GM/DL Normal TOTAL PROTEIN [facility] ([facility]) BILIRUBIN,DIRECT 0.1 MG/DL Normal [facility]DIRECT [facility]) ALBUMIN/GLOBULIN RATIO 1.6 Normal ALBUMIN/GLOBU JASSON RATIO [facility]) Albumin [Mass/volume] in Blood by Bromocresol purple ( BCP) dye binding method 4.5 GM/DL Normal ALBUMIN [facility]) ID Date Data Source [id number] 02/18/2021 03:55:00 PM EDT [facility] ([facility]) Name Value Range Interpretation Code Description Data Moriah rce(s) Supporting Document(s) Reported Physicians See Note Reported Physici ans [facility]) Note: Reported Physicians:Ordering: Barbie Sarkar [phone] MDAttending: Alfonso Mckeon To: Alfonso Mckeon To: Yuni Rashid ID Date Data Source [id number] 02/18/2021 03:55:00 PM EDT [facility] ([facility]) Name Value Range Interpretation Code Description Data Moriah rce(s) Supporting Document(s) LIPASE 74 U/L Normal LIPASE [facility] ([facility]) ID Date Data Source [id number] 02/18/2021 03:55:00 PM EDT [facility] ([facility]) Name Value Range Interpretation Code Description Data Moriah rce(s) Supporting Document(s) Reported Physicians See Note Reported Physici ans [facility] ([facility]) Note: Reported Physicians:Ordering: Barbie Mello [phone], Maja MDAttending: Lundyuki-Philippe, MajaCopy To: Linda MajaCopy To: Yuni Rashid ID Date Data Source [id number] 02/18/2021 03:55:00 PM EDT [facility] ([facility]) Name Value Range Interpretation Code Description Data Moriah rce(s) Supporting Document(s) GLUCOSE, FASTING 85 MG/DL Normal [facility], FASTING [facility]) CREATININE FOR GFR 0.71 MG/DL Normal CREATININE FOR GF R [facility] ([facility]) BLOOD UREA NITROGEN 17 MG/DL Normal BLOOD UREA NITRO GEN [facility] ([facility]) GLOMERULAR FILTRATION RATE > 60.0 Normal GLOMERULA R FILTRATION RATE [facility] ([facility]) Note: Units are mL/min/1.73 m2 Chroni c Kidney Disease Staging per NKF: Stage I & II GFR >=60 Normal to Mildly Decreased Stage III GFR 30- 59 Moderately Decreased Stage IV GFR 15-29 Severely Decreased Stage V GFR <15 Very Little GFR Left ESRD GFR <15 on TABLET TESTER SODIUM LEVEL 140 MEQ/L Normal SODIUM LEVEL [facility]) CHLORIDE LEVEL 106 MEQ/L Normal CHLORIDE LEVEL [facility]) POTASSIUM SERUM 4.1 MEQ/L Normal P[facility]ASSIUM SERUM [facility]) CARBON DIOXIDE LEVEL 31 MEQ/L Normal CARBON DIOXIDE LEVEL [facility]) Anion gap in Body fluid 3 MEQ/L Below low normal ANION GAP [facility]) CALCIUM LEVEL 9.2 MG/DL Normal CALCIUM LEVEL [facility]) ID Date Data Source [id number] 02/18/2021 03:55:00 PM EDT [facility] ([facility]) Name Value Range Interpretation Code Description Data Moriah rce(s) Supporting Document(s) Reported Physicians See Note Reported Physici ans [facility] ([facility]) Note: Reported Physicians:Ordering: [place] magaligGray [phone], Maja MDAttending: Lundyuki-Philippe, MajaCopy To: Linda MajaCopy To: Yuni Rashid ID Date Data Source [id number] 02/18/2021 03:55:00 PM EDT [facility] ([facility]) Name Value Range Interpretation Code Description Data Moriah rce(s) Supporting Document(s) RED BLOOD COUNT 4.03 6/uL Normal RED BLOOD COUNT EDWINA NWJAZMYN ([facility]) WHITE BLOOD COUNT 3.7 3/uL Below low normal WHITE BLOOD COUNT [facility] ([facility]) Hematocrit [Pure volume fraction] of Blood by Automated count 36.9 % Normal HEMATOCRIT [facility] ([facility]) Hemoglobin [Mass/volume] in Mixed venous blood by Oximetry 11.6 g/dl Below low normal HEMOGLOBIN [facility] ([facility]) MEAN CORPUSCULAR HEMOGLOBIN 28.8 pg Normal MEAN COR PUSCULAR HEMOGLOBIN [facility] ([facility]) MEAN CORPUSCULAR VOLUME 91.6 fl Normal MEAN CORPUSC ULAR VOLUME [facility] ([facility]) MEAN CORPUSCULAR HGB CONC 31.4 g/dl Below low colin l MEAN CORPUSCULAR HGB CONC [facility] ([facility]) PLATELET COUNT, AUTOMATED 177 3/uL Normal PLATELET C OUNT, AUTOMATED [facility] ([facility]) RED CELL DISTRIBUTION WIDTH 13.9 % Normal RED CELL DISTRIBUTION WIDTH [facility] ([facility]) NEUTROPHILS % 49.7 % Normal NEUTROPHILS % [facility] ([facility]) LYMPH % 41.6 % Normal LYMPH % [facility] ([facility]) EOS % 1.9 % Normal EOS % [facility] ([facility]) MONO % 6.3 % Normal MONO % [facility] ([facility]) BASO % 0.5 % Normal BASO % [facility] ([facility]) IMMATURE GRANULOCYTE % 0.0 % Normal IMMATURE GRAN ULOCYTE % [facility] ([facility]) NUCLEATED RED BLOOD CELL % 0.0 % Normal NUCLEATED RED BLOOD CELL % [facility] ([facility]) NEUTROPHILS # 1.8 3/uL Normal NEUTROPHILS # [facility] ([facility]) LYMPH # 1.5 3/uL Normal LYMPH # [facility] ([facility]) EOS # 0.1 3/uL Normal EOS # [facility] ([facility]) MONO # 0.2 3/uL Normal MONO # [facility] ([facility]) BASO # 0.0 3/uL Normal BASO # [facility] ([facility]) ID Date Data Source [id number] 11/01/2020 08:22:00 PM [facility]) Name Value Range Interpretation Code Description Data Moriah rce(s) Supporting Document(s) Reported Physicians See Note Reported Physici ans [facility] ([facility]) Note: Reported Physicians:Ordering: GEOVANI REYES [phone]: JESSIE THIBODEAUXUECopy To: DAMIR THIBODEAUXCopmichelle To: GEOVANI RASMUSSENCopmichelle To: Yuni Rashid ID Date Data Source [id number] 11/01/2020 08:22:00 PM [facility] ([facility]) Name Value Range Interpretation Code Description Data Moriah rce(s) Supporting Document(s) CORONAVIRUS 2019 NASOPHARYGEAL See Note CORON AVIRUS 2019 NASOPHARYGEAL [facility] ([facility]) Note: This nucleic acid amplification te st [...] SARS-CoV-2 virusand/or diagnosis of COVID-19 infection under llpnido667(b)(1) of the Act, 21 U.S.C. 360bbb-3(b) (1), [...] detec antonia) result in this assay.Performed at: [facility] [employer] [facility] [employer] [place] [address], [place], [place] [id number] Director: Denise Giraldo PhD, Phone: [phone] Detected ID Date Data Source [id number] 11/01/2020 08:22:00 PM EST [facility] Name Value Range Interpretation Code Description Data Moriah rce(s) Supporting Document(s) SARS coronavirus 2 RNA [facility] This lab was ordered by [facility] and reported by [facility]. ID Date Data Source [id number] 10/28/2020 11:30:00 AM EST [facility] ([facility]) Name Value Range Interpretation Code Description Data Moriah rce(s) Supporting Document(s) Reported Physicians See Note Reported Physic ans [facility] ([facility]) Note: Reported Physicians:Ordering: SALAZAR DONNAAttending: DONNA DIAZConsulting: Eric RASHID To: Yuni Rashid ID Date Data Source [id number] 10/28/2020 11:30:00 AM EST [facility] ([facility]) Name Value Range Interpretation Code Description Data Moriah rce(s) Supporting Document(s) D-DIMER QUANT <0.27 ug/mL D-DIMER QUANT [facility] ([facility]) Note: Responsible Observer: (SJR) ID Date Data Source [id number] 10/28/2020 11:30:00 AM EST [facility] ([facility]) Name Value Range Interpretation Code Description Data Moriah rce(s) Supporting Document(s) Reported Physicians See Note [facility] Note: Reported Physicians:Ordering: SALAZAR DONNAAttending: DONNA DIAZConsulting: YUNI RASHIDCopmichelle To: Yuni Rashid ID Date Data Source [id number] 10/28/2020 11:30:00 AM EST [facility] ([facility]) Name Value Range Interpretation Code Description Data Moriah rce(s) Supporting Document(s) TROPONIN T <0.01 NG/ML TROPONIN T [facility] ([facility]) Note: TROPONIN T0.1 ng/ml Recommended as the clinical threshold value forTroponin T.Responsible Observer: (TAD) ID Date Data Source [id number] 10/28/2020 11:30:00 AM EST [facility] ([facility]) Name Value Range Interpretation Code Description Data Moriah rce(s) Supporting Document(s) Reported Physicians See Note Reported Physici ans [facility] ([facility]) Note: Reported Physicians:Ordering: DONNA TOSCANOAttending: DONNA DIAZConsulting: Eric RASHID To: Yuni Rashid ID Date Data Source [id number] 10/28/2020 11:30:00 AM [facility] ([facility]) Name Value Range Interpretation Code Description Data Moriah rce(s) Supporting Document(s) BNP 133 PG/ML Above high normal BNP [facility] ([facility]) Note: Responsible Observer: (TAD) ID Date Data Source [id number] 10/28/2020 12:34:00 PM [facility] Name Value Range Interpretation Code Description Data Moriah rce(s) Supporting Document(s) BNP 133 PG/ML 0 - 125 H [facility] Hospit al ID Date Data Source [id number] 10/28/2020 12:25:00 PM [facility] Name Value Range Interpretation Code Description Data Moriah rce(s) Supporting Document(s) TROPONIN T <0.01 NG/ML 0.00 - 0.10 [facility] TROPONIN T0.1 ng/ml Recommended as the c linical threshold value forTroponin T. ID Date Data Source [id number] 10/28/2020 12:08:00 PM [facility] Name Value Range Interpretation Code Description Data Moriah rce(s) Supporting Document(s) Fibrin D-dimer FEU [Mass/volume] in Platelet poor plasma <0. 27 ug/mL 0.27 - 0.50 [facility] ID Date Data Source [id number] 09/17/2020 09:30:00 AM EDT [facility] Name Value Range Interpretation Code Description Data Moriah rce(s) Supporting Document(s) SARS coronavirus 2 RNA [facility] This lab was ordered by [facility] and reported by [facility]. Procedure Social History No Information Vital Signs ID Date Data Source UNK Name Value Range Interpretation Code Description Data Source(s) Systolic blood pressure 118 mm[Hg] 118 mm[Hg] [facility] ([facility]) Diastolic blood pressure 62 mm[Hg] 62 mm[Hg] [facility] ([facility]) Heart rate 90 /min 90 /min [facility] ([facility]) Respiratory rate 24 /min 24 /min [facility] ([facility]) Body temperature 97.6 [degF] 97.6 [degF] [place] [facility] ([facility]) Body height 64 [in_i] 64 [in_i] [facility] ([facility]) Body weight 98 [lb_av] 98 [lb_av] [facility] ([facility]) Body mass index (BMI) [Ratio] 16.8 kg/m2 16.8 k g/m2 [facility] ([facility]) Body surface area Derived from formula 1.44 m2 1.44 m2 [facility] ([facility]) Oxygen saturation in Arterial blood by Pulse oximetry 99 % 99 % [facility] ([facility]) Inhaled oxygen flow rate 0 L/min 0 L/min [facility] ([facility]) Inhaled oxygen concentration 21 % 21 % [facility] ([facility]) Systolic blood pressure 100 mm[Hg] 100 mm[Hg] [facility] ([facility]) Diastolic blood pressure 60 mm[Hg] 60 mm[Hg] [facility] ([facility]) Heart rate 76 /min 76 /min [facility] ([facility]) Respiratory rate 20 /min 20 /min [facility] ([facility]) Body temperature 97.6 [degF] 97.6 [degF] [place] [facility] ([facility]) Body height 64 [in_i] 64 [in_i] [facility] ([facility]) Body weight 98 [lb_av] 98 [lb_av] [facility] ([facility]) Body mass index (BMI) [Ratio] 16.8 kg/m2 16.8 k g/m2 [facility] ([facility]) Body surface area Derived from formula 1.44 m2 1.44 m2 [facility] ([facility]) Oxygen saturation in Arterial blood by Pulse oximetry 99 % 99 % [facility] ([facility]) Systolic blood pressure 118 mm[Hg] 118 mm[Hg] [facility] ([facility]) Diastolic blood pressure 68 mm[Hg] 68 mm[Hg] [facility] ([facility]) Heart rate 80 /min 80 /min [facility] ([facility]) Respiratory rate 24 /min 24 /min [facility] ([facility]) Body temperature 97.6 [degF] 97.6 [degF] [place] [facility] ([facility]) Body height 64 [in_i] 64 [in_i] [facility] ([facility]) Body weight 97 [lb_av] 97 [lb_av] [facility] ([facility]) Body mass index (BMI) [Ratio] 16.6 kg/m2 16.6 k g/m2 [facility] ([facility]) Body surface area Derived from formula 1.44 m2 1.44 m2 [facility] ([facility]) Oxygen saturation in Arterial blood by Pulse oximetry 95 % 95 % [facility] ([facility]) Inhaled oxygen flow rate 0 L/min 0 L/min [facility] ([facility]) Inhaled oxygen concentration 21 % 21 % [facility] ([facility]) Oxygen saturation in Arterial blood by Pulse oximetry 99 % 99 % [facility] ([facility]) Systolic blood pressure 102 mm[Hg] 102 mm[Hg] [facility] ([facility]) Body surface area Derived from formula 1.48 m2 1.48 m2 [facility] ([facility]) Diastolic blood pressure 62 mm[Hg] 62 mm[Hg] [facility] ([facility]) Heart rate 80 /min 80 /min [facility] ([facility]) Respiratory rate 20 /min 20 /min [facility] ([facility]) Body temperature 98.2 [degF] 98.2 [degF] [place] [facility] ([facility]) Body height 64 [in_i] 64 [in_i] [facility] ([facility]) Body weight 104 [lb_av] 104 [lb_av] [facility] ([facility]) Body mass index (BMI) [Ratio] 17.9 kg/m2 17.9 k g/m2 [facility] ([facility]) Systolic blood pressure 120 mm[Hg] 120 mm[Hg] [facility] ([facility]) Oxygen saturation in Arterial blood by Pulse oximetry 99 % 99 % [facility] ([facility]) Diastolic blood pressure 68 mm[Hg] 68 mm[Hg] [facility] ([facility]) Heart rate 81 /min 81 /min [facility] ([facility]) Respiratory rate 24 /min 24 /min [facility] ([facility]) Body temperature 97.6 [degF] 97.6 [degF] [place] [place] ([facility]) Body height 64 [in_i] 64 [in_i] [facility] ([facility]) Body weight 98 [lb_av] 98 [lb_av] [facility] ([facility]) Body mass index (BMI) [Ratio] 16.8 kg/m2 16.8 k g/m2 [facility] ([facility]) Body surface area Derived from formula 1.44 m2 1.44 m2 [facility] ([facility]) Inhaled oxygen flow rate 0 L/min 0 L/min [facility] ([facility]) Inhaled oxygen concentration 21 % 21 % [facility] ([facility]) Systolic blood pressure 110 mm[Hg] 110 mm[Hg] [facility] ([facility]) Diastolic blood pressure 70 mm[Hg] 70 mm[Hg] [facility] ([facility]) Heart rate 90 /min 90 /min [facility] ([facility]) Respiratory rate 20 /min 20 /min [facility] ([facility]) Body temperature 97.1 [degF] 97.1 [degF] [facility] ([facility]) Body height 64 [in_i] 64 [in_i] [facility] ([facility]) Body weight 101 [lb_av] 101 [lb_av] [facility] ([facility]) Body mass index (BMI) [Ratio] 17.3 kg/m2 17.3 k g/m2 [facility] ([facility]) Body surface area Derived from formula 1.46 m2 1.46 m2 [facility] ([facility]) Oxygen saturation in Arterial blood by Pulse oximetry 98 % 98 % [facility] ([facility]) Inhaled oxygen flow rate 0 L/min 0 L/min [facility] ([facility]) Inhaled oxygen concentration 21 % 21 % [facility] ([facility]) Body temperature 98.1 [degF] 98.1 [degF] [facility] ([facility]) Body mass index (BMI) [Ratio] 16.8 kg/m2 16.8 k g/m2 [facility] ([facility]) Systolic blood pressure 100 mm[Hg] 100 mm[Hg] [facility] ([facility]) Diastolic blood pressure 58 mm[Hg] 58 mm[Hg] [facility] ([facility]) Heart rate 88 /min 88 /min [facility] ([facility]) Respiratory rate 20 /min 20 /min [facility] ([facility]) Body height 64 [in_i] 64 [in_i] [facility] ([facility]) Body weight 98 [lb_av] 98 [lb_av] [facility] ([facility]) Body surface area Derived from formula 1.44 m2 1.44 m2 [facility] ([facility]) Oxygen saturation in Arterial blood by Pulse oximetry 97 % 97 % [facility] ([facility]) Systolic blood pressure 114 mm[Hg] 114 mm[Hg] [facility] ([facility]) Diastolic blood pressure 74 mm[Hg] 74 mm[Hg] [facility] ([facility]) Heart rate 100 /min 100 /min [facility] ([facility]) Respiratory rate 20 /min 20 /min [facility] ([facility]) Body temperature 96.8 [degF] 96.8 [degF] [place] [facility] ([facility]) Body height 64 [in_i] 64 [in_i] [facility] ([facility]) Body weight 96 [lb_av] 96 [lb_av] [facility] ([facility]) Body mass index (BMI) [Ratio] 16.5 kg/m2 16.5 k g/m2 [facility] ([facility]) Body surface area Derived from formula 1.43 m2 1.43 m2 [facility] ([facility]) Oxygen saturation in Arterial blood by Pulse oximetry 97 % 97 % [facility] ([facility]) Inhaled oxygen flow rate 0 L/min 0 L/min [facility] ([facility]) Inhaled oxygen concentration 21 % 21 % [facility] ([facility]) Body weight 103 [lb_av] 103 [lb_av] [facility] ([facility]) Body mass index (BMI) [Ratio] 17.7 kg/m2 17.7 k g/m2 [facility] ([facility]) Body surface area Derived from formula 1.48 m2 1.48 m2 [facility] ([facility]) Oxygen saturation in Arterial blood by Pulse oximetry 95 % 95 % [facility] ([facility]) Inhaled oxygen flow rate 0 L/min 0 L/min [facility] ([facility]) Inhaled oxygen concentration 21 % 21 % [facility] ([facility]) Systolic blood pressure 114 mm[Hg] 114 mm[Hg] [facility] ([facility]) Diastolic blood pressure 70 mm[Hg] 70 mm[Hg] [facility] ([facility]) Heart rate 68 /min 68 /min [facility] ([facility]) Respiratory rate 20 /min 20 /min [facility] ([facility]) Body temperature 97.1 [degF] 97.1 [degF] [place] [facility] ([facility]) Body height 64 [in_i] 64 [in_i] [facility] ([facility]) Respiratory rate 18 /min 18 /min [facility] ([facility]) Body temperature 96.6 [degF] 96.6 [degF] [place] [facility] ([facility]) Body height 64 [in_i] 64 [in_i] [facility] ([facility]) Body mass index (BMI) [Ratio] 17.2 kg/m2 17.2 k g/m2 [facility] ([facility]) Body weight 100 [lb_av] 100 [lb_av] [facility] ([facility]) Body surface area Derived from formula 1.46 m2 1.46 m2 [facility] ([facility]) Systolic blood pressure 110 mm[Hg] 110 mm[Hg] [facility] Diastolic blood pressure 66 mm[Hg] 66 mm[Hg] [facility] ([facility]) Heart rate 70 /min 70 /min [facility] ([facility]) Oxygen saturation in Arterial blood by Pulse oximetry 99 % 99 % [facility] ([facility]) Inhaled oxygen flow rate 0 L/min 0 L/min [facility] ([facility]) Inhaled oxygen concentration 21 % 21 % [facility] ([facility]) Systolic blood pressure 100 mm[Hg] 100 [facility]Hg] [facility] Diastolic blood pressure 64 mm[Hg] 64 mm[Hg] [facility] ([facility], ) Body height 64 [in_i] 64 [in_i] [facility] ([facility], ) 5'4" Body weight 102.00 [lb_av] 102.00 [lb_av] [facility] ([facility], ) Body mass index (BMI) [Ratio] 17.5 kg/m2 17.5 k g/m2 [facility] ([facility], ) Body weight 46.267 kg 46.267 kg [facility] ([facility], ) Patient Treatment Plan of Care Planned Activity Planned Date Details Description Data Source (s) Acetaminophen 325 MG / Oxycodone Hydrochloride 10 MG O ral Tablet [Percocet] 04/26/2021 12:00:00 AM EDT [facility] ([facility]) Acetaminophen 325 MG / Oxycodone Hydrochloride 10 MG O ral Tablet [Percocet] 03/27/2021 12:00:00 AM EDT [facility] ([facility]) 24 HR metoprolol succinate 100 MG Extended Release Ora l Tablet 03/27/2021 12:00:00 AM EDT [facility] ([facility]) gabapentin 800 MG Oral Tablet 03/27/2021 12:00:00 AM EDT [facility] ([facility]) gabapentin 100 MG Oral Capsule 03/27/2021 12:00:00 AM EDT [facility] ([facility]) Ondansetron 4 MG Disintegrating Oral Tablet 03/27/2021 12:00:00 AM EDT [facility] ([facility]) Acetaminophen 325 MG / Oxycodone Hydrochloride 10 MG O ral Tablet [Percocet] 02/21/2021 12:00:00 AM ED [facility] ([facility]) Sumatriptan 100 MG Oral Tablet 02/21/2021 12:00:00 AM [facility] ([facility]) Acetaminophen 325 MG / Oxycodone Hydrochloride 10 MG O ral Tablet [Percocet] 01/24/2021 12:00:00 AM EST [facility] ([facility]) 24 HR metoprolol succinate 100 MG Extended Release Ora l Tablet 12/29/2020 12:00:00 AM EST [facility] ([facility]) Ondansetron 4 MG Disintegrating Oral Tablet 12/29/2020 12:00:00 AM EST [facility] ([facility]) Acetaminophen 325 MG / Oxycodone Hydrochloride 10 MG O ral Tablet [Percocet] 12/29/2020 12:00:00 AM EST [facility] ([facility]) Acetaminophen 325 MG / Oxycodone Hydrochloride 10 MG O ral Tablet [Percocet] 11/28/2020 12:00:00 AM EST [facility] ([facility]) Ajovy 225 MG/1.5ML Subcutaneous Solution Prefilled Syr cat 11/28/2020 12:00:00 AM EST [facility] ([facility]) Acetaminophen 325 MG / Oxycodone Hydrochloride 10 MG O ral Tablet [Percocet] 10/28/2020 12:00:00 AM EST [facility] ([facility]) Sumatriptan 100 MG Oral Tablet 10/28/2020 12:00:00 AM EST [facility] ([facility]) Ondansetron 4 MG Disintegrating Oral Tablet 09/30/2020 12:00:00 AM EST [facility] ([facility]) gabapentin 800 MG Oral Tablet 09/30/2020 12:00:00 AM EST [facility] ([facility]) gabapentin 100 MG Oral Capsule 09/30/2020 12:00:00 AM EST [facility] ([facility]) 24 HR metoprolol succinate 100 MG Extended Release Ora l Tablet 09/30/2020 12:00:00 AM EST [facility] ([facility]) Acetaminophen 325 MG / Oxycodone Hydrochloride 10 MG O ral Tablet [Percocet] 09/30/2020 12:00:00 AM EST [facility] ([facility]) Sumatriptan 100 MG Oral Tablet 09/01/2020 12:00:00 AM EDT [facility] ([facility]) Acetaminophen 325 MG / Oxycodone Hydrochloride 10 MG O ral Tablet [Percocet] 09/01/2020 12:00:00 AM EDT [facility] ([facility]) Ajovy 225 MG/1.5ML Subcutaneous Solution Prefilled Syr cat 08/02/2020 12:00:00 AM EDT [facility] ([facility]) Acetaminophen 325 MG / Oxycodone Hydrochloride 10 MG O ral Tablet [Percocet] 08/02/2020 12:00:00 AM EDT [facility] ([facility]) 24 HR metoprolol succinate 100 MG Extended Release Ora l Tablet 08/02/2020 12:00:00 AM EDT [facility] ([facility]) Acetaminophen 325 MG / Oxycodone Hydrochloride 10 MG O ral Tablet [Percocet] 07/05/2020 12:00:00 AM EDT [facility] ([facility]) Acetaminophen 325 MG / Oxycodone Hydrochloride 10 MG O ral Tablet [Percocet] 06/30/2020 12:00:00 AM EDT [facility] ([facility]) Sumatriptan 100 MG Oral Tablet 05/02/2020 12:00:00 AM EDT [facility] ([facility]) 24 HR metoprolol succinate 100 MG Extended Release Ora l Tablet 05/02/2020 12:00:00 AM EDT [facility] ([facility]) Ajovy 225 MG/1.5ML Subcutaneous Solution Prefilled Syr cat 04/28/2020 12:00:00 AM EDT [facility] ([facility]) gabapentin 100 MG Oral Capsule 04/01/2020 12:00:00 AM EDT [facility] ([facility]) gabapentin 800 MG Oral Tablet 04/01/2020 12:00:00 AM EDT [facility] ([facility]) Ondansetron 4 MG Disintegrating Oral Tablet 04/01/2020 12:00:00 AM EDT [facility] ([facility]
[2021-09-03 17:03] VITALS: O2SAT 99
[2021-09-03 17:14] LABS: RSV AMPLIFICATION NEGATIVE (NEGATIVE)
--- NOTE | 2021-09-03 17:44 | REP ---
INDICATION: Coronavirus workup COMPARISON: 09/25/2020 TECHNIQUE: Portable AP view of the chest FINDINGS: The mediastinum and cardiac silhouette are stable and within normal limits for portable technique. The lung goff are clear without acute consolidation, effusion, or pneumothorax. Skeletal structures are intact. IMPRESSION: No acute cardiopulmonary process appreciated. <Electronically signed by Javon Childress > 09/03/21 [id number]
[2021-09-03 17:45] LABS: BASO % 0.6 % (0.0-1.0); EOS # 0.1 10^3/uL (0.0-0.5); EOS % 0.8 % (0.0-3.0); HEMATOCRIT 38.6 % (36.0-47.0); HEMOGLOBIN 13.1 g/dl (12.0-15.5); LYMPH # 1.9 10^3/uL (1.5-5.0); LYMPH % 30.1 % (24.0-44.0); MEAN CORPUSCULAR HEMOGLOBIN 30.8 pg (27.0-33.0); MEAN CORPUSCULAR HGB CONC 33.9 g/dl (32.0-36.5); MEAN CORPUSCULAR VOLUME 90.6 fl (80.0-96.0); MONO # 0.4 10^3/uL (0.0-0.8); MONO % 5.5 % (2.0-8.0); NEUTROPHILS % 62.8 % (36.0-66.0); PLATELET COUNT, AUTOMATED 211 10^3/uL (150-450); RED BLOOD COUNT 4.26 10^6/uL (4.00-5.40); WHITE BLOOD COUNT 6.4 10^3/uL (4.0-10.0)
[2021-09-03 18:11] LABS: ALBUMIN 4.2 GM/DL (3.2-5.2); ALT/SGPT 12 U/L (12-78); BILIRUBIN,TOTAL 0.6 MG/DL (0.2-1.0); BLOOD UREA NITROGEN 14 MG/DL (7-18); CALCIUM LEVEL 9.3 MG/DL (8.5-10.1); CARBON DIOXIDE LEVEL 30 MEQ/L (21-32); CHLORIDE LEVEL 104 MEQ/L (98-107); CREATININE FOR GFR 0.64 MG/DL (0.55-1.30); GLOMERULAR FILTRATION RATE > 60.0 (>58); GLUCOSE, FASTING 85 MG/DL (70-100); LDH LACTATE DEHYDROGENASE 185 U/L (84-246); POTASSIUM SERUM 4.2 MEQ/L (3.5-5.1); SODIUM LEVEL 138 MEQ/L (136-145); TOTAL PROTEIN 7.2 GM/DL (6.4-8.2)
[2021-09-03 18:39] VITALS: BP 122/60
[2021-09-03 18:51] LABS: MONO REFLEX EBV COMP NEGATIVE (NEGATIVE)
[2021-09-05 17:09] LABS: EBV VIRAL CAPSID AG IgG >600.0 U/mL (0.0-17.9); EBV VIRAL CAPSID AG IgM <36.0 U/mL (0.0-35.9); Lyme Disease IgG/IgM Antibodie <0.91 ISR (0.00-0.90); Lyme Disease IgM Ab Quantitati <0.80 index (0.00-0.79)
== END 2021-09-03 18:40 | disposition home or self-care (01) ==
LOC: M ED 14:43
DX: J06.9 Acute upper respiratory infection, unspecified (principal); B34.9 Viral infection, unspecified; Z20.822 Contact with and (suspected) exposure to COVID-19; R51.9 Headache, unspecified; I10 Essential (primary) hypertension; J44.9 Chronic obstructive pulmonary disease, unspecified; R56.9 Unspecified convulsions; G89.29 Other chronic pain; M54.50 Low back pain, unspecified; K59.00 Constipation, unspecified; F17.200 Nicotine dependence, unspecified, uncomplicated; Z88.1 Allergy status to other antibiotic agents; Z88.8 Allergy status to other drugs, medicaments and biological substances; Z79.899 Other long term (current) drug therapy